=== PATIENT | female | born 1960 | race Caucasian/White ===

== ENCOUNTER → 2020-09-03 08:58 | Outpatient (BNVA) | payer OTHER, SELFPAY | PROVIDERS: PCP Nurse Practitioner Family; Visit Provider Family Medicine Adult Medicine ==

== ENCOUNTER → 2020-09-24 12:52 | Outpatient (BNVA) | payer OTHER, SELFPAY | PROVIDERS: PCP Nurse Practitioner Family; Visit Provider Family Medicine Adult Medicine ==

== ENCOUNTER → 2020-10-08 15:27 | Outpatient (BNVA) | payer OTHER, SELFPAY | PROVIDERS: PCP Nurse Practitioner Family; Visit Provider Family Medicine Adult Medicine ==

== ENCOUNTER 2020-11-10 11:43 | Outpatient (RCR) | payer OTHER, SELFPAY ==
--- NOTE | 2020-11-10 14:07 | MHC.PT.EP ---
[facility] [place] [facility] [place] [facility] [place] [facility] [address] Vince Green [address] [phone] F: [phone] F: [phone] F: [phone] F: [phone] Physical Therapy Plan of Care Date of Evaluation: Date of Surgery: NA in regards to R hip Diagnosis: PT initial eval and treat: Pain in R hip M25.551 signed by Da Campos NP date of referral 10/15/20 Assessment: Pt is a pleasant, 59 y/o female, referred to PT for treatment of severe R hip pain following insidious onset which began a few weeks ago. Pt reports ongoing history of L>R knee pain, has been using standard cane for some time. Pt attributes onset of sx to compensation of walking pattern due to pain in her L knee. Pt PMH significant for morbid obesity, DM, HTN, and derangement of both knees, chronic opoid use (currently in pain management, lymphadema with LE rashes B LE, and hx fall with fractured coccyx. Pt was recently prescribed prednisone by her PCP due to surge of increasing pain in R hip x 5 days total @50 mg; pt expresses concern for lack of tapering with this. Pt is currently lacking a formal exercise program and reports intolerance for sitting, sleeping, SL, and walking due to pain. Pt was given referral for an xray of her hip, has not yet completed. Pt also reports she is enrolled in pain management- to see Dr. Lynn later today. Pt recommended to be seen in therapy at a frequency of 1-2x/week however pt has a $40 copayment and this will likely impact frequency/duration of treatment. We discussed numerous options of things she could research/review including initiating more movement into her day such as goal of rising a few reps from firm back chair with arms in effort to increase her lower extremity strength. Pt exhibits weakness of core stabilizers, hip abd, and hip ext. She reports difficulty rising from a chair and has limited ambulation tolerance in current state. Therapist advised/educated re: benefit of trialing bariatric walker to increase gait stability, independence, and confidence with ambulation. Using a walker vs a standard cane would make her feel more at ease for her level of stability and promote her to walk/move more. Therapist to reach out to referring MD to address this. Therapist also discussed benefit in speaking/consulting with podiatry to obtain diabetic footwear which would offer greater support, safety, and stabilty for her back>hips>knees. She has reported a history of diabetic ulcer in the past. She denies any form of wounds at present and does report checking her feet/BP at home daily. Upon assessment today of BP level; her BP was 200/90mmHg (taken via wrist per pt request), reports has been trending low 200s/100s more recently, was given increase in BP med by PCP with goal of 140/90. She was emotionally upset at time when therapist was taking her BP, and she reports she will continue to monitor it at home. Pt reports she has not been in the care of podiatry for herself before. Pt reports past history of consulting with lymphadema specialist, has not gone in quite a few years, however she may benefit from reassessment to address edema in her LE which is impacting her mobility. We discussed potential benefit in obtaining lifeline/alert system she could wear to increase safety due to history of falls at home. We discussed trial of [employer] for gentle pool therapy, use of NUstepper due to aide ROM in her knees as well as LE strength. She was shown simple HEP she could do at home including: isometric quad sets, sit<>stand and stand<>sit, SL hip abd straight leg, clamshell, and SL hip extension. She was educated re: use of ice prn for relief in her knees/hips. We discussed different questions she had surrounding topics such as treatments including iontophoresis, cortisone injections, strengthening exercises, and ways therapy could aide in her mobility. She was noted to become tearful, expressing frustration and lack of ability to find treatment options in the past which have helped her. She reports taking excessive amounts of ibuprofen up to 1600mg/day in addition to her pain medication in effort to ease her sx and was advised to consult with her pain management MD about this. We reviewed fall recovery and she was shown ways tips to get up from the floor/out of the car which may ease her mobility. Phone call to be placed to Da Campos's office re: obtaining a prescription for Bariatric Front wheeled RW. Pt may also benefit for a referral to podiatry to obtain diabetic shoes. Frequency and Duration: The patient will be seen 1-2x/week Short Term Goals: 1. Strengthen hip abd to 3/5. 2. Complete symmetrical bridge. 3. Reduce pain by 25% in R hip. 4. Demonstrate self care strategies for management of pain. 5. Sit<>stand on first attempt with good symmetry. 6. Obtain bariatric RW for home to increase gait stability and increase independent safe mobility. Care Home Goals: 1. Reduce R hip pain by 50% during ADLs/IADLS. 2. Complete SLR into flexion with good eccentric control. 3. I HEP for hip/knee/core stab. 4. Resume ability to sleep in SL for short periods of time. 5. Report no evidence of knee instability during ambulation. Treatment Plan: Modalities to reduce pain, spasms and effusion. Manual therapy to restore motion and function. Therapeutic exercise to improve strength and flexibility. Neuromuscular re-education for posture and balance. Therapeutic activities to return to functional activities of daily living. Electronically signed by: Aniyah Jeffrey, PT, DPT Please sign and return to therapist. Thank you for your referral.
== END 2020-12-25 12:44 | disposition other institution (70) ==
LOC: HO.PTWFD 11:43
PROVIDERS: Visit Provider Nurse Practitioner Family
DX: M25.551 Pain in right hip (principal)
CPT/HCPCS: 97110; 97116; 97161; 97530; 97535

== ENCOUNTER → 2020-11-10 15:23 | Outpatient (BNVA) | payer OTHER, SELFPAY | PROVIDERS: PCP Nurse Practitioner Family; Visit Provider Family Medicine Adult Medicine | DX: M23.91 Unspecified internal derangement of right knee (principal); M23.92 Unspecified internal derangement of left knee; M24.859 Other specific joint derangements of unspecified hip, not elsewhere classified; I10 Essential (primary) hypertension ==

== ENCOUNTER → 2020-12-24 15:19 | Outpatient (BNVA) | payer OTHER, SELFPAY | PROVIDERS: PCP Nurse Practitioner Family; Visit Provider Family Medicine Adult Medicine | DX: M23.91 Unspecified internal derangement of right knee (principal); M23.92 Unspecified internal derangement of left knee; M24.859 Other specific joint derangements of unspecified hip, not elsewhere classified; I10 Essential (primary) hypertension ==

== ENCOUNTER → 2021-01-21 15:27 | Outpatient (BNVA) | payer OTHER, SELFPAY | PROVIDERS: PCP Nurse Practitioner Family; Visit Provider Family Medicine Adult Medicine ==

== ENCOUNTER → 2021-02-18 15:18 | Outpatient (BNVA) | payer OTHER, SELFPAY | PROVIDERS: PCP Nurse Practitioner Family; Visit Provider Family Medicine Adult Medicine ==

== ENCOUNTER → 2021-03-30 15:29 | Outpatient (BNVA) | payer OTHER, SELFPAY | PROVIDERS: PCP Nurse Practitioner Family; Visit Provider Family Medicine Adult Medicine ==

== ENCOUNTER → 2021-04-29 15:18 | Outpatient (BNVA) | payer OTHER, SELFPAY | PROVIDERS: Visit Provider Family Medicine Adult Medicine ==

== ENCOUNTER → 2021-05-25 15:22 | Outpatient (BNVA) | payer OTHER, SELFPAY | PROVIDERS: PCP Nurse Practitioner Family; Visit Provider Family Medicine Adult Medicine ==

== ENCOUNTER → 2021-07-01 08:57 | Outpatient (BNVA) | payer OTHER, SELFPAY | PROVIDERS: PCP Nurse Practitioner Family; Visit Provider Family Medicine Adult Medicine ==

== ENCOUNTER → 2021-07-28 15:17 | Outpatient (BNVA) | payer OTHER, SELFPAY | PROVIDERS: PCP Nurse Practitioner Family; Visit Provider Nurse Practitioner Family ==

== ENCOUNTER → 2021-08-27 15:18 | Outpatient (BNVA) | payer OTHER, SELFPAY | PROVIDERS: PCP Nurse Practitioner Family; Visit Provider Nurse Practitioner Family ==

== ENCOUNTER → 2021-09-28 15:00 | Outpatient (BNVA) | payer OTHER, SELFPAY | PROVIDERS: PCP Nurse Practitioner Family; Visit Provider Nurse Practitioner Family | DX: M25.551 Pain in right hip (principal); M17.0 Bilateral primary osteoarthritis of knee; F11.90 Opioid use, unspecified, uncomplicated; G89.29 Other chronic pain; Z79.899 Other long term (current) drug therapy | CPT/HCPCS: 99212 ==

== ENCOUNTER 2021-09-30 08:31 | Outpatient (RCR) | payer OTHER, SELFPAY | END 2022-04-14 11:08 | disposition home or self-care (01) | LOC: HO.WCC 08:31 | PROVIDERS: PCP Nurse Practitioner Family; Visit Provider Physician Assistant | DX: E11.622 Type 2 diabetes mellitus with other skin ulcer (principal); L97.812 Non-pressure chronic ulcer of other part of right lower leg with fat layer exposed; Q82.0 Hereditary lymphedema; Z79.4 Long term (current) use of insulin; Z79.891 Long term (current) use of opiate analgesic; Z79.899 Other long term (current) drug therapy | CPT/HCPCS: 11042; 29580; 29581; 97597; 99212 ==

== ENCOUNTER → 2021-10-06 14:49 | Outpatient (BNVA) | payer OTHER, SELFPAY | PROVIDERS: PCP Nurse Practitioner Family; Visit Provider Nurse Practitioner Family | DX: E66.01 Morbid (severe) obesity due to excess calories (principal); I50.9 Heart failure, unspecified; G47.30 Sleep apnea, unspecified; R06.83 Snoring; R40.0 Somnolence; I10 Essential (primary) hypertension; Z79.899 Other long term (current) drug therapy | CPT/HCPCS: 99202 ==

== ENCOUNTER → 2021-11-02 15:18 | Outpatient (BNVA) | payer OTHER, SELFPAY | PROVIDERS: PCP Nurse Practitioner Family; Visit Provider Nurse Practitioner Family | DX: Z13.89 Encounter for screening for other disorder (principal) ==

== ENCOUNTER 2021-11-23 14:05 | Outpatient (REF) | payer OTHER, SELFPAY ==
--- NOTE | ~2021-11-23 | CT_ITS ---
EXAMINATION: CT CHEST WITH CONTRAST CLINICAL INFORMATION: Localized enlarged lymph nodes COMPARISON: None TECHNIQUE: Multidetector volumetric CT imaging of the chest was obtained after the administration of 50 mL of Omnipaque 350 intravenous contrast without immediate adverse reactions. Axial MIP volume rendering provided. Sagittal and coronal reformatted images were obtained. This CT examination was performed using dose optimization techniques as appropriate, variously including the following: *Automated exposure control *Adjustment of mA and/or kV according to patient size (this includes techniques or standardized protocols for targeted exams where dose is matched to indication/reason for exam; i.e. extremities or head) *Use of iterative reconstruction technique DLP: 315 mGy-cm FINDINGS: LUNGS/PLEURA: Mild bibasilar atelectasis. No suspicious pulmonary nodules or masses noted. Central airways are patent. No pneumothorax. No large pleural effusion. MEDIASTINUM: Heart is borderline enlarged. No pericardial effusion. Coronary artery calcifications are noted. Aorta is nonaneurysmal and demonstrates atherosclerotic calcifications. No enlarged lymph nodes per size criteria. Subcentimeter paratracheal and precarinal, and periaortic lymph nodes are noted, not enlarged per size criteria. Visualized portions of the thyroid are unremarkable. Slight elevation the right hemidiaphragm AXILLA: Multiple mildly prominent bilateral axillary lymph nodes are noted for example in the right axilla measuring 1.6 x 1.2 cm. UPPER ABDOMEN: 2.0 cm splenule. Status post cholecystectomy. Slightly decreased hepatic attenuation suggesting hepatic steatosis. OSSEOUS STRUCTURES: Multilevel degenerative changes of the thoracolumbar spine with mild dextrocurvature of the mid thoracic spine. No large lytic or blastic lesions are noted. CT/CT chest w con IMPRESSION: 1. No acute process of the chest identified. 2. Multiple mildly prominent bilateral axillary lymph nodes are noted for example in the right axilla measuring 1.6 x 1.2 cm. 3. Elevation the right hemidiaphragm, nonspecific. 4. 2.0 cm splenule. 5. Status post cholecystectomy. 6. Slightly decreased hepatic attenuation suggesting hepatic steatosis.
[2021-11-23] MEDS: iohexoL 350 MG/ML 100 ML INFUS..BTL IV (15:30)
== END 2021-11-23 14:06 | disposition home or self-care (01) ==
LOC: HO.CT 14:05
PROVIDERS: Visit Provider Nurse Practitioner Family
DX: R59.0 Localized enlarged lymph nodes (principal)
CPT/HCPCS: 71260; Q9967

== ENCOUNTER → 2021-11-30 08:44 | Outpatient (BNVA) | payer OTHER, SELFPAY | PROVIDERS: PCP Nurse Practitioner Family; Referring Provider Nurse Practitioner Family; Visit Provider Surgery | DX: Z13.89 Encounter for screening for other disorder (principal) ==

== ENCOUNTER → 2021-12-01 07:59 | Outpatient (BNVA) | payer OTHER, SELFPAY | PROVIDERS: PCP Nurse Practitioner Family; Visit Provider Nurse Practitioner Family | DX: M25.551 Pain in right hip (principal); M17.0 Bilateral primary osteoarthritis of knee; F11.90 Opioid use, unspecified, uncomplicated ==

== ENCOUNTER 2021-12-15 08:32 | Outpatient (REF) | payer OTHER, SELFPAY ==
--- NOTE | ~2021-12-15 | US_ITS ---
EXAMINATION: US BIOPSY AXILLARY LYMPH NODE, RIGHT CLINICAL INFORMATION: On recent CT imaging 11/24/2021 there are prominent bilateral axillary lymph nodes with the right axillary lymph node measuring 1.6 x 1.2 cm. COMPARISON: CT chest 11/24/2021. TECHNIQUE: Following explaining ultrasound-guided right axillary lymph node biopsy procedure, benefits and risk, a written consent was obtained. Patient was placed supine on ultrasound stretcher and preliminary imaging through the right axilla was performed. The biopsy was canceled as the right axillary lymph node has benign characteristics. FINDINGS: On right axillary lymph node imaging, the lymph node has benign characteristics and measures 1.68 x 1.1 x 1.97 cm. Normal cortex and medulla is noted. The lymph node is approximately 3 cm deep. No additional lymph nodes seen. US/US biopsy lymph node IMPRESSION: Ultrasound-guided right axillary lymph node biopsy was canceled as the lymph node has typical normal architecture and appears benign. In the past patient had similar reactive lymph nodes in the mediastinum.
== END 2021-12-15 08:33 | disposition home or self-care (01) ==
LOC: HO.US 08:32
PROVIDERS: Visit Provider Surgery
DX: R59.0 Localized enlarged lymph nodes (principal)
CPT/HCPCS: 38505; 76942

== ENCOUNTER 2021-12-20 10:46 | Outpatient (REF) | payer OTHER, SELFPAY ==
--- NOTE | ~2021-12-20 | XR_ITS ---
EXAMINATION: CHEST WITH LEFT RIBS CLINICAL INFORMATION: Pleurodynia COMPARISON: None TECHNIQUE: Chest 2 views. Left ribs 3 views. FINDINGS: Chest: The lungs are well-expanded and clear. The heart size and pulmonary vascularity is normal. There is moderate spondylosis dorsal spine no lytic process seen. The soft tissues are normal. XR/XR ribs LT 2V IMPRESSION: Unremarkable chest x-ray and left RIBS.
--- NOTE | ~2021-12-20 | XR_ITS ---
EXAMINATION: CHEST WITH LEFT RIBS CLINICAL INFORMATION: Pleurodynia COMPARISON: None TECHNIQUE: Chest 2 views. Left ribs 3 views. FINDINGS: Chest: The lungs are well-expanded and clear. The heart size and pulmonary vascularity is normal. There is moderate spondylosis dorsal spine no lytic process seen. The soft tissues are normal. XR/XR chest 2V IMPRESSION: Unremarkable chest x-ray and left RIBS.
== END 2021-12-20 10:47 | disposition home or self-care (01) ==
LOC: HO.HMGCX 10:46
PROVIDERS: PCP Nurse Practitioner Family; Visit Provider Nurse Practitioner Family
DX: R07.81 Pleurodynia (principal); R05.9 Cough, unspecified
CPT/HCPCS: 71046; 71100

== ENCOUNTER → 2021-12-28 15:29 | Outpatient (BNVA) | payer OTHER, SELFPAY | PROVIDERS: PCP Nurse Practitioner Family; Visit Provider Nurse Practitioner Family | DX: Z51.81 Encounter for therapeutic drug level monitoring (principal); F11.20 Opioid dependence, uncomplicated | CPT/HCPCS: 99211 ==

== ENCOUNTER → 2022-01-09 20:31 | Outpatient (REF) | payer OTHER, SELFPAY | LOC: HO.SL 20:31 | PROVIDERS: PCP Nurse Practitioner Family; Visit Provider Nurse Practitioner Family | DX: R06.83 Snoring (principal); R40.0 Somnolence; E66.01 Morbid (severe) obesity due to excess calories; I11.0 Hypertensive heart disease with heart failure; I50.9 Heart failure, unspecified | CPT/HCPCS: 95810 ==

== ENCOUNTER → 2022-06-16 13:14 | Outpatient (BNVA) | payer OTHER, SELFPAY | PROVIDERS: PCP Nurse Practitioner Family; Visit Provider Dietitian, Registered | DX: E11.29 Type 2 diabetes mellitus with other diabetic kidney complication (principal); E66.01 Morbid (severe) obesity due to excess calories | CPT/HCPCS: 97802 ==

== ENCOUNTER → 2022-07-04 14:48 | Outpatient (BNVA) | payer OTHER, SELFPAY | PROVIDERS: PCP Nurse Practitioner Family; Visit Provider Nurse Practitioner Family | DX: M17.0 Bilateral primary osteoarthritis of knee (principal) ==

== ENCOUNTER → 2022-08-25 11:44 | Outpatient (BNVA) | payer OTHER, SELFPAY | PROVIDERS: PCP Nurse Practitioner Family; Visit Provider Nurse Practitioner Family | DX: Z13.89 Encounter for screening for other disorder (principal) ==

== ENCOUNTER 2023-02-23 15:57 | Outpatient (AMB) | payer OTHER, SELFPAY ==
--- NOTE | 2023-02-23 16:35 | A.OFFPC_ITS ---
Vital Signs 02/23/23 16:36 Height 5 ft 3 in BMI Reason not done Patient refused/unable BP 118/74 Blood Pressure Location Lt radial Position Sitting Pulse 82 Pulse Source Pulse Oximeter Pulse Oximetry (%) 96 Oxygen Delivery Method Room Air Intake Visit Reasons: 4 month follow up Allergies No Known Allergies Allergy (Verified 02/23/23 18:40) Medication List - Last Reconciled 02/23/23 by BEHZAD Flores-BEATA amoxicillin 2,000 mg (4 x 500 mg) PO ONCE 4 days aspirin (Adult Aspirin Regimen) 81 mg PO DAILY 90 days blood sugar diagnostic (Diurnal Verio test strips) Use to check blood sugar 4 times daily; FBS and before meals flash glucose scanning reader (IronPort SystemsStyle Raine 2 Ragland) TID testing flash glucose sensor (FreeStyle Raine 2 Sensor kit) tid testing furosemide 60 mg (3 x 20 mg) PO DAILY 30 days insulin glargine-yfgn (Semglee (insulin glargine-yfgn) Pen) 68 units (0.68 mL) subcut QPM insulin lispro (Humalog KwikPen (U-100) Insulin) 30 units (0.3 mL) subcut TID ketoconazole 2% 1 appl topical BID lisinopril 5 mg PO DAILY metoprolol tartrate 25 mg PO BID 90 days pen needle, diabetic (Easy Comfort Pen Hecker) As directed 3 times a day pen needle, diabetic (BD Ultra-Fine Mini Pen Needle) once a day pregabalin (Lyrica) 75 mg PO BID 30 days rosuvastatin 10 mg PO BEDTIME semaglutide (Ozempic) 0.25 mg (0.368 mL) subcut QWEEK Tobacco use date assessed: 02/23/23 HPI 4 month follow up HPI Details Follow-up for diabetes. Patient reports taking her long-acting insulin in the morning and usually takes closer to 64 units. She reports she was getting some lows at night but in the last few days this has ceased. Her last A1c was 7.4, microalbumin up to date. She does have neuropathy to her bilateral lower extremities. I will start her on Lyrica for this, gabapentin did not work in the past. I will start Ozempic as well for the patient. She is also requesting a referral to endo, which I will gladly place. Patient is still following with Cardiology, next appointment in April. Patient denies any further increased shortness of breath, chest pain, dizziness, headache. Patient is currently on a JUSTICE and a statin. [facility] Medical History (Updated 02/23/23 @ 17:21 by KADE Flores) Aortic valve stenosis Arthralgia Derangement of both knee joints Diabetic retinopathy Essential hypertension Essential hypertension Grade II diastolic dysfunction Justin's thyroiditis Leg wound, right Morbid obesity Other specific joint derangements of unspecified hip, not elsewhere classified Type 2 diabetes mellitus with other diabetic kidney complication Type 2 diabetes mellitus without complications Ventral hernia Surgical History H/O: hysterectomy History of cholecystectomy Hx of left knee surgery Previous section S/P cardiac cath Family History Mother Ovarian cancer Father Bladder cancer Social History Household Members Other:: 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 Richard Chatterjee, Clarice Lyons, Rohit Ferrell and colleagues, with an educational ren from [employer]. Physical exam (Primary Care) Vital Signs: Last Vital Signs Pulse 82 02/23/23 16:36 BP 118/74 02/23/23 16:36 Pulse Ox 96 02/23/23 16:36 Oxygen Delivery Method Room Air 02/23/23 16:36 Tobacco/Smoking Status: Tobacco use Status Tobacco use date assessed 02/23/23 02/23/23 16:39 Patient Tobacco Use Status Never used Tobacco 02/23/23 16:39 e-Cigarette/Vaping Use Never Used 02/23/23 16:39 Thrive Assessment: Date of Thrive Assessment Date Thrive assessed 10/27/22 02/23/23 16:39 Const Other: uses a cane General: cooperative, comfortable and no acute distress Nutritional Appearance: obese morbidly obese Resp Effort & Inspection: normal respiratory effort Auscultation: clear to auscultation bilaterally Cardio Rate: regular rate Rhythm: regular rhythm Heart sounds: S1 normal heart sound present, S2 normal heart sound present and Murmur heart sound present systolic Neuro Other: Limited sensation noted to bilat plantar aspect of feet, especially to toes. Otherwise, very minimal sensation felt with monofilament Psych Appearance: grossly normal Mental Status: mental status grossly normal Speech and movement: Normal speech and movement present Affect: normal affect Attitude: cooperative Thought process: Normal thought process present Thought content: Normal thought content present Insight: Good insight present (Psych) Judgement: Good judgement present (Psych) Assessment and Plan Assessment & Plan (1) Type 2 diabetes mellitus with other diabetic kidney complication: Code(s): E11.29 - Type 2 diabetes mellitus with other diabetic kidney complication (2) Diabetes: Code(s): E11.9 - Type 2 diabetes mellitus without complications Orders: Referrals Endocrinology Referral E11.29 - Type 2 diabetes mellitus with other diabetic kidney complication Nephrology Referral E11.9 - Type 2 diabetes mellitus without complications Medications: New amoxicillin take 4 tabs 1 hr before dental procedure 2,000 mg (4 x 500 mg) PO ONCE 4 caps 2RF 4 days pregabalin (Lyrica) 75 mg PO BID 60 caps 1RF 30 days semaglutide (Ozempic) for 4 weeks 0.25 mg (0.368 mL) subcut QWEEK 3 mL 1RF Refilled insulin lispro (Humalog KwikPen (U-100) Insulin) max is 16 units sliding scale 3 times a day with meals 30 units (0.3 mL) subcut TID 15 mL 1RF Coding Level of Care Code Est Pt Level 3 (68743) Diagnoses Type 2 diabetes mellitus with other diabetic kidney complication E11.29 Diabetes E11.9
[2023-02-23 16:36] VITALS: BP 118/74; PULSE 82; O2SAT 96
== END 2023-02-23 17:58 | disposition home or self-care (01) ==
PROVIDERS: PCP Nurse Practitioner Family; Visit Provider Nurse Practitioner Family
DX: E11.29 Type 2 diabetes mellitus with other diabetic kidney complication (principal)
CPT/HCPCS: 99213

== ENCOUNTER 2023-06-15 07:32 | Outpatient (AMB) | payer OTHER, SELFPAY ==
--- NOTE | 2023-06-15 07:26 | MHC.PC.OV ---
Intake Visit Reasons: 3Month diabetes follow up(a1c done in labs) Allergies No Known Allergies Allergy (Verified 02/23/23 18:40) Tobacco use date assessed: 02/23/23 HPI 3Month diabetes follow up(a1c done in labs) HPI Details Pt is following up with endo for her diabetes. A1C is well-controlled at 6.6. Pt is also seeing nephrology and cardiology. BNP is 92. Denies chest pain, shortness of breath, and dizziness. Pt reports that her anxiety and depression is doing well. Denies any SI and HI. [facility] Medical History (Updated 06/15/23 @ 07:46 by BEHZAD FloresBEATA) Grade II diastolic dysfunction Diabetic retinopathy Leg wound, right Arthralgia Justin's thyroiditis Ventral hernia Aortic valve stenosis Essential hypertension Essential hypertension Type 2 diabetes mellitus without complications Morbid obesity Other specific joint derangements of unspecified hip, not elsewhere classified Derangement of both knee joints Type 2 diabetes mellitus with other diabetic kidney complication Surgical History S/P cardiac cath History of cholecystectomy Previous section Hx of left knee surgery H/O: hysterectomy Family History Mother Ovarian cancer Father Bladder cancer Social History Household 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 Richard Chatterjee, Clarice Lyons, Rohit Ferrell and colleagues, with an educational ren from [employer] Review of Systems Const Reports as per HPI Physical exam (Primary Care) Tobacco/Smoking Status: Tobacco use Status Tobacco use date assessed 02/23/23 06/15/23 07:29 Patient Tobacco Use Status Never used Tobacco 06/15/23 07:29 e-Cigarette/Vaping Use Never Used 06/15/23 07:29 Thrive Assessment: Date of Thrive Assessment Date Thrive assessed 10/27/22 06/15/23 07:29 Const General: cooperative Orientation/consciousness: patient oriented x3 Neuro General: patient oriented x3 Psych Appearance: grossly normal Mental Status: mental status grossly normal Speech and movement: Clear speech present Affect: normal affect Attitude: cooperative Thought process: Normal thought process present Thought content: Normal thought content present Insight: Good insight present (Psych) Judgement: Good judgement present (Psych) Assessment and Plan Assessment & Plan (1) CHF (congestive heart failure): Code(s): I50.9 - Heart failure, unspecified (2) Type 2 diabetes mellitus with other diabetic kidney complication: Code(s): E11.29 - Type 2 diabetes mellitus with other diabetic kidney complication (3) Depression with anxiety: Code(s): F41.8 - Other specified anxiety disorders Plan The patient agreed to the use of a medical instructor for this encounter. Scribed for KADE Dickey by Belinda Leary medical instructor, on 06/15/2023 at 07:25 EST. Coding Level of Care Code Tele Est Pt Level 3 (72884) Diagnoses CHF (congestive heart failure) I50.9 Type 2 diabetes mellitus with other diabetic kidney complication E11.29 Depression with anxiety F41.8
== END 2023-06-15 08:17 | disposition home or self-care (01) ==
LOC: HO.HMGC 07:32
PROVIDERS: PCP Nurse Practitioner Family; Visit Provider Nurse Practitioner Family
DX: I50.9 Heart failure, unspecified (principal); E11.29 Type 2 diabetes mellitus with other diabetic kidney complication; F41.8 Other specified anxiety disorders
CPT/HCPCS: 99213

== ENCOUNTER 2023-09-18 07:11 | Outpatient (AMB) | payer BC, SELFPAY ==
--- NOTE | 2023-09-18 07:21 | A.OFFPC_ITS ---
Intake Visit Reasons: Discuss personal [phone] Allergies No Known Allergies Allergy (Verified 09/18/23 08:17) Medication List - Last Reconciled 09/18/23 by KADE Flores amoxicillin 2,000 mg (4 x 500 mg) PO ONCE 4 days aspirin (Adult Aspirin Regimen) 81 mg PO DAILY 90 days blood sugar diagnostic (DwellAwareTouch Verio test strips) Use to check blood sugar 4 times daily; FBS and before meals flash glucose scanning reader ([employer]Style Raine 2 [place]) TID testing flash glucose sensor (FreeStyle Raine 2 Sensor kit) tid testing furosemide 60 mg (3 x 20 mg) PO DAILY 90 days insulin glargine-yfgn (Semglee (insulin glargine-yfgn) Pen) 68 units (0.68 mL) subcut QPM insulin lispro (Humalog KwikPen (U-100) Insulin) 16 units max, sliding scale 3 times a day with meals subcutaneously ketoconazole 2% 1 appl topical BID lisinopril 5 mg PO DAILY metoprolol tartrate 25 mg PO BID 90 days pen needle, diabetic (Easy Comfort Pen Protem) As directed 3 times a day pen needle, diabetic (BD Ultra-Fine Mini Pen Needle) once a day pregabalin (Lyrica) 75 mg PO BID 90 days rosuvastatin 10 mg PO BEDTIME semaglutide 1 mg (0.75 mL) subcut QWEEK 30 days Tobacco use date assessed: 02/23/23 HPI Discuss personal [phone] HPI Details Pt c/o leg cramping. She reports that these are mostly at night. She is on a fluid restriction. Recommended OTC magnesium oxide and/or vitamin b12 complex. Encouraged pt to include electrolytes with fluids (sugar free gatorade for ex). Pt will be seeing her new hearing aid repairer in 2 weeks. Pt is seeing endo for her diabetes and is doing well. She is losing weight. Denies chest pain, shortness of breath, and dizziness. [facility] Medical History Grade II diastolic dysfunction Diabetic retinopathy Leg wound, right Arthralgia Justin's thyroiditis Ventral hernia Aortic valve stenosis Essential hypertension Essential hypertension Type 2 diabetes mellitus without complications Morbid obesity Other specific joint derangements of unspecified hip, not elsewhere classified Derangement of both knee joints Type 2 diabetes mellitus with other diabetic kidney complication Surgical History S/P cardiac cath History of cholecystectomy Previous section Hx of left knee surgery H/O: hysterectomy Family History Mother Ovarian cancer Father Bladder cancer Social History Household 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 Richard Chatterjee, Clarice Lyons, Rohit Ferrell and colleagues, with an educational ren from [employer]. Review of Systems Const Reports as per HPI Physical exam (Primary Care) Tobacco/Smoking Status: Tobacco use Status Tobacco use date assessed 02/23/23 09/18/23 07:23 Patient Tobacco Use Status Never used Tobacco 09/18/23 07:23 e-Cigarette/Vaping Use Never Used 09/18/23 07:23 Thrive Assessment: Date of Thrive Assessment Date Thrive assessed 10/27/22 09/18/23 07:23 Const General: cooperative Orientation/consciousness: patient oriented x3 Neuro General: patient oriented x3 Psych Appearance: grossly normal Mental Status: mental status grossly normal Speech and movement: Clear speech present Affect: normal affect Attitude: cooperative Thought process: Normal thought process present Thought content: Normal thought content present Insight: Good insight present (Psych) Judgement: Good judgement present (Psych) Telehealth Telehealth Location of provider rendering services: practice address Location of patient: address on file Patient Identification confirmed using: Name, : Yes Telehealth method: video Patient verbally consented to treatment: Yes Patient verbally consented to billing insurance company: Yes Patient informed of any privacy concerns related to visit: Yes Minutes spent on Phone/Video with Pt.: 15 Assessment and Plan Assessment & Plan (1) Morbid obesity: Code(s): E66.01 - Morbid (severe) obesity due to excess calories (2) Diabetes: Code(s): E11.9 - Type 2 diabetes mellitus without complications Plan: controlled, seeing endo (3) CHF (congestive heart failure): Code(s): I50.9 - Heart failure, unspecified Plan: seeing cardio, no acute SOB or increase in edema. (4) Leg cramps: Code(s): R25.2 - Cramp and spasm Plan: try mag oxide 400mg at night, may add vit b complex Plan The patient agreed to the use of a medical chief technician for this encounter. Scribed for BEHZAD Dickey-BEATA by Belinda Leary medical chief technician, on 09/18/2023 at 07:20 EST. Coding Level of Care Code Tele Est Pt Level 3 (20304) Diagnoses Morbid obesity E66.01 Diabetes E11.9 CHF (congestive heart failure) I50.9 Leg cramps R25.2
== END 2023-09-18 07:47 | disposition home or self-care (01) ==
LOC: HO.HMGC 07:11
PROVIDERS: PCP Nurse Practitioner Family; Visit Provider Nurse Practitioner Family
DX: E11.9 Type 2 diabetes mellitus without complications (principal); E66.01 Morbid (severe) obesity due to excess calories; I50.9 Heart failure, unspecified; R25.2 Cramp and spasm
CPT/HCPCS: 99213

== ENCOUNTER 2024-02-05 15:24 | Outpatient (AMB) | payer BC, SELFPAY ==
--- NOTE | 2024-02-05 15:29 | MHC.PC.OV ---
Vital Signs 02/05/24 15:30 Height 5 ft 3 in BMI Reason not done Patient refused/unable BP 120/72 Blood Pressure Location Lt radial Position Sitting Pulse 94 Pulse Source Pulse Oximeter Pulse Oximetry (%) 95 Oxygen Delivery Method Room Air Intake Visit Reasons: 4M F/U DM Intake Note: Pt is here today for 4 month follow up Allergies No Known Allergies Allergy (Verified 02/05/24 15:30) Tobacco use date assessed: 02/05/24 Dental Screening Dental Screen Date: 02/05/24 Did you have a dental visit in the last 12 months?: Yes Did you have a dental problem in the last 6 months where you did not have access to dental care?: No Was dental information given to patient?: Patient has dentist HPI 4M F/U DM HPI Details Pt is a diabetic, sees endo. Pt c/o ongoing leg cramps. She reports that these occur at night in her calves and feet. Pt has tried magnesium and vitamin B complex. She reports that these help somewhat. ? dehydration. Recommended increased fluid intake, though she is on a fluid restriction. Pt will talk to her credit and collections analyst about this. Denies fever, chills, dizziness, PND. NOTE: sending tramadol for chronic pain, see if it helps. She knows not to share this medication, take only as prescribed, and cannot drive or operate machinery. [facility] Medical History Grade II diastolic dysfunction Diabetic retinopathy Leg wound, right Arthralgia Justin's thyroiditis Ventral hernia Aortic valve stenosis Essential hypertension Essential hypertension Type 2 diabetes mellitus without complications Morbid obesity Other specific joint derangements of unspecified hip, not elsewhere classified Derangement of both knee joints Type 2 diabetes mellitus with other diabetic kidney complication Surgical History S/P cardiac cath History of cholecystectomy Previous section Hx of left knee surgery H/O: hysterectomy Family History Mother Ovarian cancer Father Bladder cancer Social History Household Members Other:: 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 1. Little interest or pleasure in doing things: not at all 2. Feeling down, depressed, or hopeless: not at all 3. Trouble falling or staying asleep, or sleeping too much: not at all 4. Feeling tired or having little energy: not at all 5. Poor appetite or overeating: not at all 6. Feeling bad about yourself - or that you are a failure or have let yourself or your family down: not at all 7. Trouble concentrating on things, such as reading the newspaper or watching television: not at all 8. Moving or speaking so slowly that other people could have noticed. Or the opposite - being so fidgety or restless that you have been moving around a lot more than usual: not at all 9. Thoughts that you would be better off or of hurting yourself in some way: not at all Total score: 0 Depression Screening Interpretation: Negative Depression Screening Done: Yes 01583 - PHQ-9 Billing: Yes Source: Developed by Drs. Richard Chatterjee, Clarice Lyons, Rohit Ferrell and colleagues, with an educational ren from [employer]. Thrive Questionnaire Date Thrive assessed: 02/05/24 I am a: Patient What is your living situation today?: I have a steady place to live Within the past 12 months, did the food you bought not last and you didn't have the money to get more?: Never true Within the past 12 months, did you worry whether your food would run out before you got money to buy more?: Never true Do you have trouble paying for medicines?: No Do you have trouble getting transportation to medical appointments?: No Do you have trouble paying your heating and electricity bill?: No Do you have trouble taking care of your child, family member or friend?: No Do you have trouble with day-to-day activities such as bathing, preparing meals, shopping, managing finances, etc.?: No Are you currently unemployed and looking for a job?: No Are you interested in more education?: No Please select the resources that you would like help with: Housing/Fdc Currently or been in a relationship where the following occur: No concerns reported THRIVE Score: 0 AUDIT C Alcohol Use Questionnaire (AUDIT-C) 1. How often do you have a drink containing alcohol?: Monthly or less 2. How many drinks containing alcohol do you have on a typical day when you are drinking?: 1 or 2 3. How often do you have six or more drinks on one occasion?: Never Total Score: 1 Score Reviewed/Action Taken: Yes JILLIAN-7 AMB Questionnaire JILLIAN-7 Date JILLIAN - 7 assessed: 02/05/24 Feeling nervous, anxious, or on edge: 0 = Not at all Not being able to stop or control worryin = Not at all Worrying too much about different things: 0 = Not at all Trouble relaxin = Not at all Being so restless that it is hard to sit still: 0 = Not at all Becoming easily annoyed or irritable: 0 = Not at all Feeling afraid as if something awful might happen: 0 = Not at all Total JILLIAN-7 score (0-4 normal; 5-9 mild; 10-14 moderate; 15-21 severe): 0 Source: Developed by Drs. Richard Chatterjee, Clarice Lyons, Rohit Ferrell and colleagues, with an educational ren from [employer]. JILLIAN-7 Assessment Billing JILLIAN-7 Assessment Tool: JILLIAN-7 Assessment 84229 Review of Systems Const Reports as per HPI Physical exam (Primary Care) Vital Signs: Last Vital Signs Pulse 94 02/05/24 15:30 BP 120/72 02/05/24 15:30 Pulse Ox 95 02/05/24 15:30 Oxygen Delivery Method Room Air 02/05/24 15:30 Tobacco/Smoking Status: Tobacco use Status Tobacco use date assessed 02/05/24 02/05/24 15:31 Patient Tobacco Use Status Never used Tobacco 02/05/24 15:31 e-Cigarette/Vaping Use Never Used 02/05/24 15:31 PHQ-9: PHQ-9 Score PHQ-9: Total score 0 02/05/24 15:42 Depression Screening Interpretation: Negative Thrive Assessment: Date of Thrive Assessment Date Thrive assessed 02/05/24 02/05/24 15:31 Currently or been in a relationship where the following occur: No concerns reported Const Other: uses a cane General: cooperative Nutritional Appearance: obese Orientation/consciousness: patient oriented x3 Resp Effort & Inspection: normal respiratory effort Auscultation: clear to auscultation bilaterally Cardio Rate: regular rate Rhythm: regular rhythm Heart sounds: S1 normal heart sound present and S2 normal heart sound present Neuro General: patient oriented x3 Extrem Right lower extremity: edema (BLE) Left lower extremity: edema (BLE) Psych Appearance: grossly normal Mental Status: mental status grossly normal Speech and movement: Normal speech and movement present Affect: normal affect Attitude: cooperative Thought process: Normal thought process present Thought content: Normal thought content present Insight: Good insight present (Psych) Judgement: Good judgement present (Psych) Assessment and Plan Assessment & Plan (1) Leg cramps: Code(s): R25.2 - Cramp and spasm Plan: cont mag oxide, Vit B complex, and try sugar free gatorade (2) CHF (congestive heart failure): Code(s): I50.9 - Heart failure, unspecified Plan: follows up with cardiology on a regular basis, no active signs of CHF today (3) Chronic pain: Code(s): G89.29 - Other chronic pain Plan: tramadol sent. Plan The patient agreed to the use of a medical lab specialist for this encounter. Scribed for KADE Dickey by Belinda Leary medical lab specialist, on 02/05/2024 at 16:05 EST. Coding Level of Care Code Est Pt Level 4 (62326) Complex EM visit Add On G2211 Diagnoses Leg cramps R25.2 CHF (congestive heart failure) I50.9 Chronic pain G89.29 Additional Codes JILLIAN-7 Assessment Billing - JILLIAN-7 Assessment Tool: JILLIAN-7 Assessment [id number] ([id number])
[2024-02-05 15:30] VITALS: BP 120/72; PULSE 94; O2SAT 95
== END 2024-02-05 17:01 | disposition home or self-care (01) ==
PROVIDERS: PCP Nurse Practitioner Family; Visit Provider Nurse Practitioner Family
DX: R25.2 Cramp and spasm (principal); I50.9 Heart failure, unspecified; G89.29 Other chronic pain
CPT/HCPCS: 99214

== ENCOUNTER 2024-06-03 08:21 | Outpatient (AMB) | payer MEDICARE, SELFPAY ==
--- NOTE | 2024-06-03 07:10 | A.OFFPC_ITS ---
Intake Visit Reasons: 4M F/U Allergies No Known Allergies Allergy (Verified 02/05/24 15:30) Tobacco use date assessed: 02/05/24 Dental Screening Dental Screen Date: 02/05/24 HPI 4M F/U HPI Details Pt is a diabetic, sees endo. Lower extrem and upper extrem cramping, magnesium helped a little bit . Her mag levels jumped up, so she stopped the mag. Will have her take daily for a week then, go to every other day. Will have pt increase water and caloric intake. Denies fever, chills, and dizziness. She will be following up with cardiology as she has been. [facility] Medical History Grade II diastolic dysfunction Diabetic retinopathy Leg wound, right Arthralgia Justin's thyroiditis Ventral hernia Aortic valve stenosis Essential hypertension Essential hypertension Type 2 diabetes mellitus without complications Morbid obesity Other specific joint derangements of unspecified hip, not elsewhere classified Derangement of both knee joints Type 2 diabetes mellitus with other diabetic kidney complication Surgical History S/P cardiac cath History of cholecystectomy Previous section Hx of left knee surgery H/O: hysterectomy Family History Mother Ovarian cancer Father Bladder cancer Social History 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 Richard Chatterjee, Clarice Lyons, Rohit Ferrell and colleagues, with an educational ren from [employer]. Review of Systems Const Reports as per HPI Physical exam (Primary Care) Tobacco/Smoking Status: Tobacco use Status Tobacco use date assessed 02/05/24 06/03/24 07:12 Patient Tobacco Use Status Never used Tobacco 06/03/24 07:12 e-Cigarette/Vaping Use Never Used 06/03/24 07:12 Thrive Assessment: Date of Thrive Assessment Date Thrive assessed 02/05/24 06/03/24 07:12 Const General: cooperative Orientation/consciousness: patient oriented x3 Neuro General: patient oriented x3 Psych Appearance: grossly normal Mental Status: mental status grossly normal Speech and movement: Clear speech present Affect: normal affect Attitude: cooperative Thought process: Normal thought process present Thought content: Normal thought content present Insight: Good insight present (Psych) Judgement: Good judgement present (Psych) Telehealth Telehealth Telehealth Platform: [employer] Location of provider rendering services: practice address Location of patient: address on file Patient Identification confirmed using: Name, : Yes Telehealth method: video Patient verbally consented to treatment: Yes Patient verbally consented to billing insurance company: Yes Patient informed of any privacy concerns related to visit: Yes Minutes spent on Phone/Video with Pt.: 15 Coding Level of Care Code Tele Est Pt Level 3 (63764) Diagnoses Leg cramps R25.2 (HFpEF) heart failure with preserved ejection fraction I50.30 Assessment & Plan Assessment & Plan (1) Leg cramps: Code(s): R25.2 - Cramp and spasm Category: Medical Plan: mag daily, then every other day, repeat labs (2) (HFpEF) heart failure with preserved ejection fraction: Code(s): I50.30 - Unspecified diastolic (congestive) heart failure Category: Medical Plan: seeing cardio on a regular basis, denies any changes (increased SOB or edema) Plan The patient agreed to the use of a medical technician for this encounter. Scribed for KADE Dickey by Belinda Leary medical technician, on 06/03/2024 at 07:10 EST. Orders: Orders Magnesium Today R25.2 - Cramp and spasm Vitamin B12 and Folate Today R25.2 - Cramp and spasm Vitamin B6 Today R25.2 - Cramp and spasm Complete Blood Count Auto Diff Today R25.2 - Cramp and spasm Comprehensive Met. Panel Today R25.2 - Cramp and spasm
--- OUTSIDE RECORDS SUMMARY | 2024-06-07 12:58 | XMS_ITS | Continuity of Care Document ---
Author Organization [facility] Address [address] [place] [address]- Care Team Providers Care Display Carver Name Role Phone Andres BARGER, Da Esquivel Primary Care Physician [place] [facility] [place]23 [place] 07/[place]/23 [facility] [address] [place] [phone]- Allergies, Adverse Reactions, Alerts No Known Allergies Immunizations Given and Recorded Vaccine Date Status Refusal Reason SARS-CoV-2 (COVID-19) mRNA-1273 vaccine 07/29/21 R ecorded SARS-CoV-2 (COVID-19) mRNA-1273 vaccine 12/01/20 R ecorded SARS-CoV-2 (COVID-19) mRNA-1273 vaccine 11/03/20 R ecorded Medications Alpha Lipoic Acid 200 mg oral capsule 1 capsule = 200 mg, By Mouth, 3 times a day, # 30 capsule, 0 Refills, Maintenance, 09/14/21 20:42:00 EST, Capsule, Partial fill upon patient request if the prescription is for a schedule II opioid drug. Start Date: 09/14/21 Status: Ordered aspirin 81 mg oral tablet, chewable 0 Refill(s), CHEW 1 TABLET BY MOUTH EVERY DAY, Refills 0, 01/25/23 20:00:00 EDT, Partial fill upon patient request if the prescription is for a schedule II opioid drug. Start Date: 01/25/23 Status: Ordered Basaglar KwikPen 100 units/mL subcutaneous solution = 95 units, Subcutaneous Injection, Daily in AM, # 10 mL, 0 Refills, Maintenance, 09/14/21 20:39:00EST, Solution, Partial fill upon patient request if the prescription is for a schedule II opioid drug. Start Date: 09/14/21 Status: Ordered carvedilol 12.5 mg oral tablet 12.5 mg, 1, tablet, By Mouth, 2 times a day, # 60 tablet, Refills 0, Maintenance, 01/21/22 6:30:00 EDT, Partial fill upon patient request if the prescription is for a schedule II opioid drug. Start Date: 01/21/22 Status: Ordered dexcome g7 sensors dexcome g7 sensors, See Instructions, # 3 each, Refills 5, Tot. Refills 5, Maintenance, e11.9 use to continuously monitor glucose level change every 10 days, 07/20/23 14:08:00 EST, Supply, 160, cm, 05/01/23 14:43:00 EDT, Height, 148, kg, 01/21/22 6:... Start Date: 07/20/23 Status: Ordered furosemide 20 mg oral tablet 270 each, 0 Refill(s), TAKE 2 TABS DAILY IN THE MORNING AND 1 TAB DAILY AT NIGHT, Refills 0, 05/01/23 16:25:00 EDT, Partial fill upon patient request if the prescription is for a schedule II opioid drug. Start Date: 05/01/23 Status: Ordered furosemide 40 mg oral tablet 90 each, 0 Refill(s), TAKE 1 TABLET BY MOUTH EVERY DAY FOR 90 DAYS, Refills 0, 05/16/23 12:49:00 EDT, Partial fill upon patient request if the prescription is for a schedule II opioid drug. Start Date: 05/16/23 Status: Ordered ibuprofen 800 mg oral tablet See Instructions, 1-2 tablet By Mouth daily, Refills 0, Maintenance, 09/14/21 20:42:00 EST, Instructions Replace Required Details, Partial fill upon patient request if the prescription is for a schedule II opioid drug. Start Date: 09/14/21 Status: Ordered insulin glargine 100 units/mL subcutaneous solution 50 Unknown, Subcutaneous, 0 Refill(s), Inject 65 Units under the skin every morning, 0 Refills, 05/01/23 16:25:00 EDT, Partial fill upon patient request if the prescription is for a schedule II opioid drug. Start Date: 05/01/23 Status: Ordered ketoconazole 2% topical shampoo Topical, 0 Refill(s), Apply topically 2 (two) times a week Apply to damp skin, lather, leave on 5 minutes, and rinse, 0 Refills, 05/16/23 12:49:00 EDT, Partial fill upon patient request if the prescription is for a schedule II opioid drug. Start Date: 05/16/23 Status: Ordered Lasix 40 mg oral tablet 40 mg, 1, tablet, By Mouth, Daily, # 30 tablet, Refills 0, Tot. Refills 0, Maintenance, 09/17/21 13:32:00 EST, Route to Pharmacy Electronically, [facility]/pharmacy #[id number], Partial fill upon patient request if the prescription is for a schedule II opioid drug... Start Date: 09/17/21 Status: Ordered lisinopril 40 mg oral tablet 1 tablet = 40 mg, By Mouth, Daily, # 30 tablet, 0 Refills, Maintenance, 09/14/21 20:13:00 EST, Tablet, Partial fill upon patient request if the prescription is for a schedule II opioid drug. Start Date: 09/14/21 Status: Ordered lisinopril 5 mg oral tablet 90 each, 0 Refill(s), TAKE 1 TABLET BY MOUTH EVERY DAY, Refills 0, 05/01/23 16:25:00 EDT, Partial fill upon patient request if the prescription is for a schedule II opioid drug. Start Date: 05/01/23 Status: Ordered metoprolol 25 mg oral tablet 25 Unknown, Oral, 0 Refill(s), Take 25 mg by mouth, Refills 0, 02/06/23 20:00:00 EDT, Partial fill upon patient request if the prescription is for a schedule II opioid drug. Start Date: 02/06/23 Status: Ordered metoprolol succinate 25 mg oral capsule, extended release 3 capsule = 75 mg, By Mouth, Daily, # 90 capsule, 2 Refills, Maintenance, 09/17/21 13:31:00 EST, ERCapsule, [facility]/pharmacy #[id number], Partial fill upon patient request if the prescription is for a schedule II opioid drug., 160, cm, 09/15/21 13:21:00 EST, H... Start Date: 09/17/21 Stop Date: 12/16/21 Status: Ordered NovoLOG PenFill 100 units/mL injectable solution = 5 units, Subcutaneous Infusion, 3 times a day before meals, e11.9 insurance prefers novolog, # 10mL, 5 Refills, Maintenance, 07/20/23 14:02:00 EST, [facility] #[id number], Partial fill upon patient request if the prescription is for a schedul... Start Date: 07/20/23 Status: Ordered NovoLOG PenFill 100 units/mL injectable solution = 5 units, Subcutaneous Infusion, 3 times a day before meals, e11.9 insurance prefers novolog, # 15mL, 3 Refills, Maintenance, 07/20/23 14:05:00 EST, [facility] #[id number], Partial fill upon patient request if the prescription is for a schedul... Start Date: 07/20/23 Status: Ordered oxyCODONE 15 mg oral tablet 1 tablet = 15 mg, By Mouth, Every 6 hours, PRN as needed for pain, 0 Refills, Maintenance, 09/15/2219:12:00 EST, Tablet, Partial fill upon patient request if the prescription is for a schedule II opioid drug. Start Date: 09/14/21 Status: Ordered Ozempic (1 mg dose) 4 mg/3 mL subcutaneous solution See Instructions, 2 - 1 mg Subcutaneous Injection Every week Dx: E11.9, # 8 each, 5 Refills, Maintenance, 05/30/23 12:46:00 EST, Solution, [id number], 160, cm, 05/01/23 14:43:00 EDT,Height, 148, kg, 01/21/22 6:51:00 EDT, Dry Weight Start Date: 05/30/23 Status: Ordered pregabalin 75 mg oral capsule 180 each, 0 Refill(s), TAKE 1 CAPSULE BY MOUTH TWICE A DAY, 0 Refills, 05/01/23 16:25:00 EDT, Partial fill upon patient request if the prescription is for a schedule II opioid drug. Start Date: 05/01/23 Status: Ordered rosuvastatin 10 mg oral tablet 90 tablet, 0 Refill(s), 0 Refills, 05/01/23 16:25:00 EDT, Partial fill upon patient request if the prescription is for a schedule II opioid drug. Start Date: 05/01/23 Status: Ordered Vitamin D2 2000 intl units oral capsule 1 capsule = 50 mcg, By Mouth, Daily, with food, # 60 capsule, 0 Refills, Maintenance, 09/14/21 20:13:00 EST, Capsule, Partial fill upon patient request if the prescription is for a schedule II opioiddrug. Start Date: 09/14/21 Status: Ordered Problem List Condition Confirmation Course Effective Dates Status H ealth Status Informant Cellulitis Confirmed Active Cholecystectomy Confirmed Active Chronic ulcer of leg Confirmed Active DUB - Dysfunctional uterine bleeding Confirmed Active Hypertension Confirmed Active IDDM - Insulin-dependent diabetes mellitus Confirmed Active Morbid obesity Confirmed Active Panniculectomy Confirmed Active Severe obesity Confirmed Active DENIA BSO - Total abdominal hysterectomy and bilateral salpingo-oophorectomy Confirmed Active Patient Care team information Care Team Personnel Name: Andres BARGER , Da Esquivel Position: Reference Physician Member Role: PCP Address: Address: [address] [place] [address]- Name: Claribel Arrieta RN Position: Ayana OB RN Member Role: Primary Care Nurse Name: Radha Hernandez MD Position: Ayana Renal MD Member Role: Lifetime Consulting Physician Address: Address: [address] [place] [address] [place] [address]- Care Team Related Persons Name: LEO MORROW Address: home [address] [place] [address]
--- OUTSIDE RECORDS SUMMARY | 2024-06-07 12:58 | XMS_ITS | Continuity of Care Document ---
Author Organization [facility] Address [address] [place] [address]- Care Team Providers Care Entry Driver Operator Name Role Phone Andres BARGER, Da Esquivel Primary Care Physician [phone] Encounter [facility] Date(s): 06/08/22 - 09/09/[address] [address] Encounter Diagnosis Nonrheumatic aortic valve disorder, unspecified(Final) - Discharge Disposition: A-D/C Home Attending Physician: Bert Trujillo MD Admitting Physician: Bert Trujillo MD Referring Physician: Bert Trujillo MD Allergies, Adverse Reactions, Alerts No Known Allergies [...] opioid drug. Start Date: 09/14/21 Status: Ordered Basaglar KwikPen 100 units/mL subcutaneous [...] opioid drug. Start Date: 01/21/22 Status: Ordered Humalog 100 u/ml subcutaneous injection = 5 units, Subcutaneous Injection, 3 times a day before meals, # 10 mL, 0 Refills, Maintenance, 09/14/21 20:39:00 EST, Solution, Partial fill upon patient request if the prescription is for a schedule II opioid drug. Start Date: 09/14/21 Status: Ordered ibuprofen 800 mg oral tablet See Instructions, 1-2 tablet By Mouth daily, Refills 0, Maintenance, 09/14/21 20:42:00 EST, Instructions Replace Required Details, Partial fill upon patient request if the prescription is for a schedule II opioid drug. Start Date: 09/14/21 Status: Ordered Lasix 40 mg oral tablet 40 mg, 1, tablet, By Mouth, Daily, # 30 tablet, Refills 0, Tot. Refills 0, Maintenance, 09/17/21 13:32:00 EST, Route to Pharmacy Electronically, [facility]/pharmacy #[id number], Partial fill upon patient request if [...] opioid drug. Start Date: 09/14/21 Status: Ordered metoprolol succinate 25 mg oral capsule, extended release 3 capsule = 75 mg, By Mouth, Daily, # 90 capsule, 2 Refills, Maintenance, 09/17/21 13:31:00 EST, ERCapsule, [facility]/pharmacy #[id number], Partial fill upon patient request if the prescription is for a schedule II opioid drug., 160, cm, 09/15/21 13:21:00 EST, H... Start Date: 09/17/21 Stop Date: 12/16/21 Status: Ordered oxyCODONE 15 mg oral tablet 1 tablet = 15 mg, By Mouth, Every 6 hours, PRN as needed for pain, 0 Refills, Maintenance, 09/15/2219:12:00 EST, Tablet, Partial fill upon patient request if the prescription is for a schedule II opioid drug. Start Date: 09/14/21 Status: Ordered Vitamin D2 2000 intl units [...] abdominal hysterectomy and bilateral salpingo-oophorectomy Confirmed Active Note * Event Display: Cardiac Rehab Telemetry Report Authored Date: * Event Display: Cardiac Rehab Telemetry Report Authored Date: * Event Display: Cardiac Rehab Telemetry Report Authored Date: Patient Care team information Care Team Personnel Name: Da Campos NP Position: Reference Physician Member Role: PCP Address: Address: [address] [place] [address]- Name: Claribel Arrieta RN Position: S OB RN Member Role: Primary Care Nurse Care Team Related Persons Name: ODALYSLEO POLK Address: home [address] [place] [address]
--- OUTSIDE RECORDS SUMMARY | 2024-06-07 12:58 | XMS_ITS | Continuity of Care Document ---
Author Organization [facility] Address [address] [place] [address]- Care Team Providers Care Realtime Court Reporter Name Role Phone Da Campos NP Primary Care Physician [phone] [place] [facility] [place]21 - 11/25/21 [facility] [address] [place] [address] Attending Physician: Ramana Peters MD Admitting Physician: Ramana Peters MD Referring Physician: Da Campos NP Allergies, Adverse Reactions, Alerts No Known Allergies [...] opioid drug. Start Date: 09/14/21 Status: Ordered Humalog 100 u/ml subcutaneous injection [...] 09/17/21 13:32:00 EST, Route to Pharmacy Electronically, [facility]/pharmacy #[id number], Partial fill upon patient request if [...] 2 Refills, Maintenance, 09/17/21 13:31:00 EST, ERCapsule, [facility]/pharmacy #[id number], Partial fill upon patient request if [...] Date: 09/14/21 Status: Ordered Problem List Condition Effective Dates Status Health Status Inform ant Cellulitis(Confirmed) Active Cholecystectomy(Confirmed) Active Chronic ulcer of leg(Confirmed) Active DUB - Dysfunctional uterine bleeding(Confirmed) Active Hypertension(Confirmed) Active IDDM - Insulin-dependent danuta betes mellitus(Confirmed) Active Morbid obesity(Confirmed) Active Panniculectomy(Confirmed) Active Severe obesity(Confirmed) Active DENIA BSO - Total abdominal hy sterectomy and bilateral salpingo-oophorectomy(Confirmed) Active
--- OUTSIDE RECORDS SUMMARY | 2024-06-07 12:58 | XMS_ITS | Continuity of Care Document ---
Author Organization [facility] Address [address] [place] [address]- Care Team Providers Care Energy Conservation Engineer Name Role Phone Andres BARGER, Da Esquivel Primary Care Physician Encounter [facility] Date(s): 05/16/23 - 06/15/23 [facility] [address] [place] [address]- Allergies, Adverse Reactions, Alerts No Known Allergies [...] opioid drug. Start Date: 01/21/22 Status: Ordered furosemide 20 mg oral tablet [...] opioid drug. Start Date: 05/16/23 Status: Ordered Humalog 100 u/ml subcutaneous injection [...] 13:32:00 EST, Route to Pharmacy Electronically, [facility]/pharmacy #[id number], Partial fill upon patient request [...] Refills, Maintenance, 09/17/21 13:31:00 EST, ERCapsule, [facility]/pharmacy #[id number], Partial fill upon patient request [...] 5 Refills, Maintenance, 05/30/23 12:46:00 EST, Solution, [facility] #[id number], 160, cm, 05/01/23 14:43:00 EDT,Height, 148, kg, [...] Reference Physician Member Role: PCP Address: Address: [address] [place] [id number] Name: Claribel Arrieta RN Position: Ayana OB RN Member Role: Primary Care Nurse Name: Radha Hernandez MD Position: LIANG Renal MD Member Role: Lifetime Consulting Physician Address: Address: [address] [facility] [place] [address]- Care Team Related Persons Name: LEO MORROW Address: home [address] [place] [address]
--- OUTSIDE RECORDS SUMMARY | 2024-06-07 12:58 | XMS_ITS | Continuity of Care Document ---
Author Organization [facility] Address [address] [place] [address]- Care Team Providers Care Inserter Name Role Phone Andres BARGER, Da Esquivel Primary Care Physician [phone] Encounter [facility] Date(s): 06/21/23 - 07/21/23 [facility] [address] [place] [id number] Allergies, Adverse Reactions, Alerts No Known Allergies [...] 09/17/21 13:32:00 EST, Route to Pharmacy Electronically, [facility]/pharmacy #[id number], Partial fill upon patient [...] 2 Refills, Maintenance, 09/17/21 13:31:00 EST, ERCapsule, [facility]/pharmacy #[id number], Partial fill upon patient request if the prescription is for a schedule II opioid drug., 160, cm, 09/15/21 13:21:00 EST, H... Start Date: 09/17/21 Stop Date: 12/16/21 Status: Ordered NovoLOG PenFill 100 units/mL injectable solution = 5 units, Subcutaneous Infusion, 3 times a day before meals, e11.9 insurance prefers novolog, # 10mL, 5 Refills, Maintenance, 07/20/23 14:02:00 EST, [facility] #[id number], Partial fill upon patient request if the prescription is for a schedul... Start Date: 07/20/23 Status: Ordered NovoLOG PenFill 100 units/mL injectable solution = 5 units, Subcutaneous Infusion, 3 times a day before meals, e11.9 insurance prefers novolog, # 15mL, 3 Refills, Maintenance, 07/20/23 14:05:00 EST, [facility] #[id number], Partial fill upon patient request if the [...] 5 Refills, Maintenance, 05/30/23 12:46:00 EST, Solution, [facility] #[id number], 160, cm, 05/01/23 14:43:00 EDT,Height, 148, kg, [...] Physician Member Role: PCP Address: Address: [address] [place] [address]- Name: Claribel Arrieta RN Position: Ayana OB RN Member Role: Primary Care Nurse Name: Radha Hernandez MD Position: Ayana Renal MD Member Role: Lifetime Consulting Physician Address: Address: [address] [place] [address] [place] [address]- Care Team Related Persons Name: LEO MORROW Address: home [address] [place] [address]
--- OUTSIDE RECORDS SUMMARY | 2024-06-07 12:58 | XMS_ITS | Continuity of Care Document ---
Author Organization [facility] Address [address] [place] [address]- Care Team Providers Care Production Line Worker Name Role Phone Andres BARGER, Da Esquivel Primary Care Physician Encounter [facility] Date(s): 05/29/23 - 06/28/23 [facility] [address] [place] [id number] Allergies, Adverse Reactions, Alerts No Known Allergies [...] 09/17/21 13:32:00 EST, Route to Pharmacy Electronically, [facility]/pharmacy #[id number], Partial fill upon patient request if [...] 2 Refills, Maintenance, 09/17/21 13:31:00 EST, ERCapsule, [facility]/pharmacy #[id number], Partial fill upon patient request if [...] 5 Refills, Maintenance, 05/30/23 12:46:00 EST, Solution, [email or web address] #[id number], 160, cm, 05/01/23 14:43:00 EDT,Height, 148, kg, [...] Reference Physician Member Role: PCP Address: Address: [address] [place] [id number] Name: Claribel Arrieta RN Position: Ayana OB RN Member Role: Primary Care Nurse Name: Radha Hernandez MD Position: LIANG Renal MD Member Role: Lifetime Consulting Physician Address: Address: [address] [facility] [place] [address]- Care Team Related Persons Name: LEO MORROW Address: home [address] [place] [address]
--- OUTSIDE RECORDS SUMMARY | 2024-06-07 12:58 | XMS_ITS | Continuity of Care Document ---
Author Organization [facility] Address [address] [facility], [address] Floor, [address] [place] [address]- Care Team Providers Care Candlemaking Laborer Name Role Phone Andres BARGER, Da Esquivel Primary Care Physician Encounter [facility] Date(s): 01/23/20 - 02/22/20 [facility] [address], [address], [address] [place] [address] [facility] Allergies, Adverse Reactions, Alerts Substance Reaction Severity Status NKA Active Medications Benicar 20 mg oral tablet 1 tablet, By Mouth, Daily, # 30 tablet, 0 Refills, Maintenance, Tablet Start Date: 02/09/11 Status: Ordered Diovan 320 mg oral tablet 320, mg, 1, tablet, By Mouth, Daily, 0, 0, 12/08/07 13:06:46, Print AKI Number, [id number], Constant Indicator Start Date: 12/08/07 Status: Ordered gabapentin 100 mg oral capsule 300 mg, 3, capsule, By Mouth, Daily at bedtime, Start 1 cap bedtime x 1 week, then 2 caps bedtime x1 week, then 3 caps bedtime., # 90 capsule, Refills 5, Tot. Refills 5, Maintenance, 12/25/19 8:09:00 EDT, Route to Pharmacy Electronically, [facility]... Start Date: 12/25/19 Stop Date: 06/22/20 Status: Ordered Humalog Inj 2-10 units, Subcutaneous Infusion, 3 times a day before meals, Scheduled / PRN, 0, 0, 12/08/07 13:59:09, sliding scale, Print AKI Number, 69 Start Date: 12/08/07 Status: Ordered Lantus Inj = 90 units, Subcutaneous Injection, Daily in AM, 0 Refills, Maintenance Start Date: 12/08/07 Status: Ordered LORazepam 1 mg oral tablet See Instructions, By Mouth, 1 tablet 30 minutes prior to test, may repeat x1 as needed at time of test. NO DRIVING., # 2 tablet, 0 Refills, Maintenance, 12/25/19 8:10:00 EDT, [facility] #[id number] Start Date: 12/25/19 Status: Ordered Norvasc 10 mg oral tablet 10, mg, 1, tablet, By Mouth, Daily, 0, 0, 12/08/07 13:07:02, Print AKI Number, [id number], Constant Indicator Start Date: 12/08/07 Status: Ordered oxycodone 15 mg oral tablet 1 tablet, By Mouth, 2 times a day, PRN for pain, 0 Refills, Maintenance, Tablet Start Date: 02/09/11 Status: Ordered OxyContin 20 mg oral tablet, extended release 1 tablet, By Mouth, 3 times a day, PRN pain, 0 Refills, Maintenance, ER Tablet Start Date: 02/09/11 Status: Ordered Problem List Condition Effective Dates Status Health Status Inform ant Cellulitis(Confirmed) Active Cholecystectomy(Confirmed) Active Chronic ulcer of leg(Confirmed) Active DUB - Dysfunctional uterine bleeding(Confirmed) Active Hypertension(Confirmed) Active IDDM - Insulin-dependent danuta betes mellitus(Confirmed) Active Morbid obesity(Confirmed) Active Panniculectomy(Confirmed) Active DENIA BSO - Total abdominal hy sterectomy and bilateral salpingo-oophorectomy(Confirmed) Active
--- OUTSIDE RECORDS SUMMARY | 2024-06-07 12:58 | XMS_ITS | Continuity of Care Document ---
Author Organization [facility] Address [address] [place] [address]- Care Team Providers Care Heel Seat Filler Name Role Phone Andres BARGER, Da Esquivel Primary Care Physician [phone] Encounter [facility] Date(s): 10/26/21 - 11/25/21 Wound Care [address] [place] [address] Attending Physician: Wu Nina Admitting Physician: AdmtrWu Referring Physician: Admtr, Wu Allergies, Adverse Reactions, Alerts No Known Allergies [...] 09/17/21 13:32:00 EST, Route to Pharmacy Electronically, [facility]/pharmacy #[id number], Partial fill upon patient request [...] 2 Refills, Maintenance, 09/17/21 13:31:00 EST, ERCapsule, [facility]/pharmacy #[id number], Partial fill upon patient request [...]
--- OUTSIDE RECORDS SUMMARY | 2024-06-07 12:58 | XMS_ITS | Continuity of Care Document ---
Author Organization [facility] Address [address] [place] [address]- Care Team Providers Care Technical Architect Name Role Phone Andres BARGER, Da Esquivel Primary Care Physician [phone] [facility]counter [facility] Date(s): 07/20/23 - 08/19/23 [facility] [address] [place] [id number] Allergies, Adverse Reactions, Alerts No Known [...] 09/17/21 13:32:00 EST, Route to Pharmacy Electronically, [facility]/pharmacy #[id number], Partial fill upon patient request if [...] 2 Refills, Maintenance, 09/17/21 13:31:00 EST, ERCapsule, [facility]/pharmacy #[id number], Partial fill upon patient request if the prescription is for a schedule II opioid drug., 160, cm, 09/15/21 13:21:00 EST, H... Start Date: 09/17/21 Stop Date: 12/16/21 Status: Ordered NovoLOG PenFill 100 units/mL injectable solution = 5 units, Subcutaneous Infusion, 3 times a day before meals, e11.9 insurance prefers novolog, # 10mL, 5 Refills, Maintenance, 07/20/23 14:02:00 EST, [facility] #[id number], Partial fill upon patient request if the prescription is for a schedul... Start Date: 07/20/23 Status: Ordered NovoLOG PenFill 100 units/mL injectable solution = 5 units, Subcutaneous Infusion, 3 times a day before meals, e11.9 insurance prefers novolog, # 15mL, 3 Refills, Maintenance, 07/20/23 14:05:00 EST, [facility] #[id number], Partial fill upon patient request if the [...] drug. Start Date: 09/14/21 Status: Ordered Ozempic 8 mg/3 mL (2 mg dose) subcutaneous solution = 2 mg, Subcutaneous Injection, Every week, in the abdomen, thigh, or upper arm, # 3 mL, 11 Refills, Maintenance, 08/03/23 12:46:00 EST, Solution, [facility] #[id number], 160, cm, 05/01/23 14:43:00 EDT, Height, 148, kg, 01/21/22 6:51:00 EDT, Dry... Start Date: 08/03/23 Status: Ordered pregabalin 75 mg oral capsule [...] Physician Member Role: PCP Address: Address: [address] [place] [address]- Name: Claribel Arrieta RN Position: Ayana OB RN Member Role: Primary Care Nurse Name: Radha Hernandez MD Position: Ayana Renal MD Member Role: Lifetime Consulting Physician Address: Address: [address] [facility] [place] [address]- Care Team Related Persons Name: LEO MORROW Address: home [address] [place] [id number]
--- OUTSIDE RECORDS SUMMARY | 2024-06-07 12:58 | XMS_ITS | Continuity of Care Document ---
Author Organization [facility] ter Address [address] [place] [address]- Care Team Providers Care Tube Skiver Name Role Phone Andres BARGER, Da Esquivel Primary Care Physician [phone] Encounter [facility] Date(s): 01/21/22 - 01/21/[address] [address]- Discharge Disposition: A-D/C Home Attending Physician: Jimena Jamison MD Admitting Physician: Jimena Jamison MD Referring Physician: Kitty Freeman NP Allergies, Adverse Reactions, Alerts No Known [...] 13:32:00 EST, Route to Pharmacy Electronically, [facility]/pharmacy #[id number], Partial fill upon patient request [...] Refills, Maintenance, 09/17/21 13:31:00 EST, ERCapsule, [facility]/pharmacy #[id number], Partial fill upon patient request [...] abdominal hy sterectomy and bilateral salpingo-oophorectomy(Confirmed) Active Vital Signs Most recent to oldest [Reference Range]: 1 2 3 Height 160 cm (01/21/22 6:51 AM) 160 cm (01/21/22 6:13 AM) Weight 148 kg (01/21/22 6:51 AM) 148 kg (01/21/22 6:13 AM) Oxygen Saturation [94-100 %] 96 % (01/21/22 1:15 PM) 95 % (01/21/22 12:45 PM) 94 % (01/21/22 12:30 PM) Pulse Rate [55-90 bpm] 72 bpm (01/21/22 6:51 AM) Body Mass Index [18.5-24.99] 57.81 *>HHI* (01/21/22 6:51 AM) Blood Pressure [90-138/55-84 mm Hg] 144/80mm Hg *H* (01/21/22 1:15 PM) 135/82mm Hg (01/21/22 12:45 PM) 148/80mm Hg *H* (01/21/22 12:30 PM) Respiratory Rate [16-30 br/min] 14 br/min *L* (01/21/22 1:15 PM) 20 br/min (01/21/22 12:45 PM) 14 br/min *L* (01/21/22 12:30 PM) Temperature [96.8-100.4 DegF] 97.7 DegF (01/21/22 6:51 AM) Mode of Delivery (Oxygen) Room air (01/21/22 1:15 PM) Room air (01/21/22 12:45 PM) Room air (01/21/22 12:30 PM) Blood pressure sites Arm, left (01/21/22 6:51 AM) Temperature Route Temporal (01/21/22 6:51 AM) Dry Weight 148 kg (01/21/22 6:51 AM) 148 kg (01/21/22 6:13 AM) Weight Obtained Via Standing scale (01/21/22 6:13 AM) Dry Weight Obtained Via Standing scale (01/21/22 6:13 AM)
--- OUTSIDE RECORDS SUMMARY | 2024-06-07 12:58 | XMS_ITS | Continuity of Care Document ---
Author Organization [facility] Address [address] [place] [address]- Care Team Providers Care Waiter Waitress Name Role Phone Andres BARGER, Da Esquivel Primary Care Physician [phone] Encounter [facility] Date(s): 06/05/23 - 07/05/23 [facility] [address] [place] [address]- Allergies, Adverse Reactions, Alerts No Known Allergies [...] 5 Refills, Maintenance, 05/30/23 12:46:00 EST, Solution, [facility] #[id number], 160, cm, 05/01/23 14:43:00 EDT,Height, 148, kg, [...] Reference Physician Member Role: PCP Address: Address: [address] [place] [id number] Name: Claribel Arrieta RN Position: Ayana OB RN Member Role: Primary Care Nurse Name: Radha Hernandez MD Position: LIANG Renal MD Member Role: Lifetime Consulting Physician Address: Address: [address] [facility] [place] [address]- Care Team Related Persons Name: LEO MORROW Address: home [address] [place] [address]
--- OUTSIDE RECORDS SUMMARY | 2024-06-07 12:58 | XMS_ITS | Continuity of Care Document ---
Author Organization [facility] Address [address] [facility], [address]r d Floor, [address] [place] [address]- Care Team Providers Care Roller Mill Tender Name Role Phone Andres BARGER, Da Esquivel Primary Care Physician [phone] [facility] [facility] [place] 07/22/20 - 08/21/20 [facility] [address], [address], [address] [place] [address] Attending Physician: Admaudrey, Wu Admitting Physician: Admtr, Ar8 Referring Physician: Admtr, Ar8 Allergies, Adverse Reactions, Alerts Substance Reaction Severity Status NKA Active Medications Diovan 320 mg oral tablet 320, mg, 1, tablet, By Mouth, Daily, 0, 0, 12/08/07 13:06:46, Print AKI Number, [id number], Constant Indicator Start Date: 12/08/07 Status: Ordered gabapentin 300 mg oral capsule 300 mg, 1, capsule, By Mouth, 3 times a day, # 90 capsule, Refills 5, Tot. Refills 5, Maintenance, 03/18/20 15:48:00 EDT, Route to Pharmacy Electronically, [facility]/pharmacy #[id number], Increasing dose., 160, cm, 03/18/20 15:33:00 EDT, Height Start Date: 03/18/20 Stop Date: 09/14/20 Status: Ordered Humalog Inj 2-10 units, Subcutaneous Infusion, 3 times a day before meals, Scheduled / PRN, 0, 0, 12/08/07 13:59:09, sliding scale, Print AKI Number, 69 Start Date: 12/08/07 Status: Ordered Lantus Inj = 90 units, Subcutaneous Injection, Daily in AM, 0 Refills, Maintenance Start Date: 12/08/07 Status: Ordered Latanoprost Ophthalmic Daily before dinner, 0 Refills, Maintenance, 03/18/20 15:36:00 EDT Start Date: 03/18/20 Status: Ordered metoprolol metoprolol, Refills 0, Maintenance, 03/18/20 15:37:00 EDT, Supply Start Date: 03/18/20 Status: Ordered Norvasc 10 mg oral tablet 10, mg, 1, tablet, By Mouth, Daily, 0, 0, 12/08/07 13:07:02, Print AKI Number, [id number], Constant Indicator Start Date: 12/08/07 Status: Ordered oxycodone 15 mg oral tablet 1 tablet, By Mouth, 2 times a day, PRN for pain, 0 Refills, Maintenance, Tablet Start Date: 02/09/11 Status: Ordered Problem List Condition Effective Dates Status Health Status Inform ant Cellulitis(Confirmed) Active Cholecystectomy(Confirmed) Active Chronic ulcer of leg(Confirmed) Active DUB - Dysfunctional uterine bleeding(Confirmed) Active Hypertension(Confirmed) Active IDDM - Insulin-dependent danuta betes mellitus(Confirmed) Active Morbid obesity(Confirmed) Active Panniculectomy(Confirmed) Active DENIA BSO - Total abdominal hy sterectomy and bilateral salpingo-oophorectomy(Confirmed) Active
--- OUTSIDE RECORDS SUMMARY | 2024-06-07 12:58 | XMS_ITS | Continuity of Care Document ---
Author Organization [facility] Address [address] [place] [address]- Care Team Providers Care Case Sealer Name Role Phone Andres BARGER, Da Esquivel Primary Care Physician [phone] Encounter [facility] Date(s): 01/25/24 - 02/24/24 [facility] [address] [place] [id number] Attending Physician: Wu Nina Admitting Physician: Admtr, Ar8 Referring Physician: Admtr, Ar8 Allergies, Adverse Reactions, Alerts No Known Allergies [...] opioid drug. Start Date: 01/25/23 Status: Ordered dexcome g7 sensors dexcome g7 sensors, See Instructions, # 3 each, Refills 5, Tot. Refills 5, Maintenance, e11.9 use to continuously monitor glucose level change every 10 days, 07/20/23 14:08:00 EST, Supply, 160, cm, 05/01/23 14:43:00 EDT, Height, 148, kg, 01/21/22 6:... Start Date: 07/20/23 Status: Ordered furosemide 20 mg oral tablet 40 mg, 2, tablet, By Mouth, Daily, # 180 tablet, Refills 3, Tot. Refills 3, Maintenance, 10/03/23 15:35:00 EDT, [id number], Partial fill upon patient request if the prescription is for a schedule II o... Start Date: 10/03/23 Status: Ordered Humalog 100 u/ml subcutaneous injection = 1 units, Subcutaneous Infusion, 0 Refills, Maintenance, 10/03/23 15:10:00 EDT, Partial fill upon patient request if the prescription is for a schedule II opioid drug. Start Date: 10/03/23 Status: Ordered ibuprofen 800 mg oral tablet See Instructions, 1-2 tablet By Mouth daily, Refills 0, Maintenance, 09/14/21 20:42:00 EST, Instructions Replace Required Details, Partial fill upon patient request if the prescription is for a schedule II opioid drug. Start Date: 09/14/21 Status: Ordered ketoconazole 2% topical shampoo Topical, 0 Refill(s), Apply topically 2 (two) times a week Apply to damp skin, lather, leave on 5 minutes, and rinse, 0 Refills, 05/16/23 12:49:00 EDT, Partial fill upon patient request if the prescription is for a schedule II opioid drug. Start Date: 05/16/23 Status: Ordered lisinopril 5 mg oral tablet 90 each, 0 Refill(s), TAKE 1 TABLET BY MOUTH EVERY DAY, Refills 0, 05/01/23 16:25:00 EDT, Partial fill upon patient request if the prescription is for a schedule II opioid drug. Start Date: 05/01/23 Status: Ordered magnesium oxide 400 mg oral capsule 1 capsule = 400 mg, By Mouth, Daily, 0 Refills, Maintenance, 10/03/23 15:13:00 EDT, Partial fill upon patient request if the prescription is for a schedule II opioid drug. Start Date: 10/03/23 Status: Ordered metoprolol succinate 50 mg oral capsule, extended release 1 capsule = 50 mg, By Mouth, Daily, 0 Refills, Maintenance, 10/03/23 15:09:00 EDT, Partial fill upon patient request if the prescription is for a schedule II opioid drug. Start Date: 10/03/23 Status: Ordered NovoLOG PenFill 100 units/mL injectable solution = 5 units, Subcutaneous Infusion, 3 times a day before meals, e11.9 insurance prefers novolog, # 10mL, 5 Refills, Maintenance, 07/20/23 14:02:00 EST, [facility] #[id number], Partial fill upon patient request if the prescription is for a schedul... Start Date: 07/20/23 Status: Ordered NovoLOG PenFill 100 units/mL injectable solution = 5 units, Subcutaneous Infusion, 3 times a day before meals, e11.9 insurance prefers novolog, # 15mL, 3 Refills, Maintenance, 07/20/23 14:05:00 EST, [facility] #[id number], Partial fill upon patient request if the [...] 11 Refills, Maintenance, 08/03/23 12:46:00 EST, Solution, [facility] #[id number], 160, cm, 05/01/23 14:43:00 EDT, Height, 148, kg, 01/21/22 6:51:00 EDT, Dry... Start Date: 08/03/23 Status: Ordered Pen [place], 31 G x 5 mm BD Ultra Fine III See Instructions, # 120 each, Refills 11, Tot. Refills 11, Maintenance, use of administration of insulin 4 times daily, 01/25/24 12:40:00 EDT, dx: E11.9, Supply, 160, cm, 01/25/24 11:49:00 EDT, Height Start Date: 01/25/24 Stop Date: 01/19/25 Status: Ordered pregabalin 75 mg oral capsule [...] opioid drug. Start Date: 05/01/23 Status: Ordered Semglee (Prefilled Pen) 100 units/mL subcutaneous solution = 56 units, Subcutaneous Infusion, Daily, # 75 mL, 3 Refills, Maintenance, 01/25/24 12:38:00 EDT, [facility] #[id number], 90 day supply; Dx: E11.9, 160, cm, 01/25/24 11:49:00 EDT, Height Start Date: 01/25/24 Status: Ordered Tylenol 8 Hour 650 mg oral tablet, extended release 2 tablet = 1,300 mg, By Mouth, Every 8 hours, PRN as needed for pain, # 50 tablet, 0 Refills, Maintenance, 10/03/23 15:11:00 EDT, ER Tablet, Partial fill upon patient request if the prescription is for a schedule II opioid drug. Start Date: 10/03/23 Status: Ordered Vitamin D2 2000 intl units [...] abdominal hysterectomy and bilateral salpingo-oophorectomy Confirmed Active Social History Social History Type Response Smoking Status Never (less than 100 in lifetime) entered on: 10/03/23 Sex Patient Care team information Care Team Personnel Name: Andres BARGER , Da Esquivel Position: Reference Physician Member Role: PCP Address: Address: [address] [place] [address]- Name: Claribel Arrieta RN Position: [facility] OB RN Member Role: Primary Care Nurse Name: Radha Hernandez MD Position: [facility] Renal MD Member Role: Lifetime Consulting Physician Address: Address: [address] [place] [address] [place] [address]- Care Team Related Persons Name: LEO MORROW Address: home [address] [place] [address]
--- OUTSIDE RECORDS SUMMARY | 2024-06-07 12:58 | XMS_ITS | Continuity of Care Document ---
Author Organization [facility] Address [address] [place] [address]- Care Team Providers Care Cloth Bin Packer Name Role Phone Andres BARGER, Da Esquivel Primary Care Physician [facility] Date(s): 04/20/23 - 05/20/23 [facility] [address] [place] [address]- Allergies, Adverse Reactions, Alerts No Known Allergies [...] Ordered insulin glargine 100 units/mL subcutaneous solution 65 Unknown, Subcutaneous, 0 Refill(s), Inject 65 Units [...] 09/17/21 13:32:00 EST, Route to Pharmacy Electronically, [facility]/pharmacy #[id number], Partial fill upon patient [...] 2 Refills, Maintenance, 09/17/21 13:31:00 EST, ERCapsule, [facility]/pharmacy #[id number], Partial fill upon patient [...] drug. Start Date: 09/14/21 Status: Ordered Ozempic 2 mg/3 mL (0.25 mg or 0.5 mg dose) subcutaneous solution 3 mL, 0 Refill(s), INJECT 0.5 MG (0.736 ML) SUBCUTANEOUSLY EVERY WEEK FOR 30 DAYS FOR 4 WEEKS, 0 Refills, 05/01/23 16:25:00 EDT, Partial fill upon patient request if the prescription is for a schedule II opioid drug. Start Date: 05/01/23 Status: Ordered pregabalin 75 mg oral capsule [...] Physician Member Role: PCP Address: Address: [address] [place] [address]- Name: Claribel Arrieta RN Position: [facility] OB RN Member Role: Primary Care Nurse Name: Radha Hernandez MD Position: [facility] Renal MD Member Role: Lifetime Consulting Physician Address: Address: [address] [facility] [place] [address]- Care Team Related Persons Name: LEO MORROW Address: [address] [address]
--- OUTSIDE RECORDS SUMMARY | 2024-06-07 12:58 | XMS_ITS | Continuity of Care Document ---
Author Organization [facility] Address [address] [place] [address]- Care Team Providers Care Wrapping Machine Helper Name Role Phone Andres BARGER, Da Esquivel Primary Care Physician [facility] Date(s): 08/02/23 - 09/01/23 [facility] [address] [place] [id number] Allergies, Adverse Reactions, Alerts No Known Allergies [...] 09/17/21 13:32:00 EST, Route to Pharmacy Electronically, [facility]/pharmacy #[id number], Partial fill upon patient request [...] 2 Refills, Maintenance, 09/17/21 13:31:00 EST, ERCapsule, [facility]/pharmacy #[id number], Partial fill upon patient request if the prescription is for a schedule II opioid drug., 160, cm, 09/15/21 13:21:00 EST, H... Start Date: 09/17/21 Stop Date: 12/16/21 Status: Ordered NovoLOG PenFill 100 units/mL injectable solution = 5 units, Subcutaneous Infusion, 3 times a day before meals, e11.9 insurance prefers novolog, # 10mL, 5 Refills, Maintenance, 07/20/23 14:02:00 EST, [facility] #[id number], Partial fill upon patient request if the prescription is for a schedul... Start Date: 07/20/23 Status: Ordered NovoLOG PenFill 100 units/mL injectable solution = 5 units, Subcutaneous Infusion, 3 times a day before meals, e11.9 insurance prefers novolog, # 15mL, 3 Refills, Maintenance, 07/20/23 14:05:00 EST, [facility] #[id number], Partial fill upon patient request if the [...] 11 Refills, Maintenance, 08/03/23 12:46:00 EST, Solution, [facility] #[id number], 160, cm, 05/01/23 14:43:00 EDT, Height, 148, [...] Physician Member Role: PCP Address: Address: [address] [place] [address]- Name: Claribel Arrieta RN Position: Ayana OB RN Member Role: Primary Care Nurse Name: Radha Hernandez MD Position: [facility] Renal MD Member Role: Lifetime Consulting Physician Address: Address: [address] [facility] [place] [address]- Care Team Related Persons Name: LEO MORROW Address: home [address] [place] [address]
--- OUTSIDE RECORDS SUMMARY | 2024-06-07 12:58 | XMS_ITS | Continuity of Care Document ---
Author Organization [facility] ter Address [address] [place] [address]- Care Team Providers Care Art Coordinator Name Role Phone Andres BARGER, Da Esquivel Primary Care Physician Encounter [facility] Date(s): 08/27/19 - 02/21/[address] [address]- [facility] Attending Physician: Da Campos NP Admitting Physician: Da Campos NP Referring Physician: Da Campos NP Allergies, Adverse Reactions, Alerts Substance Reaction Severity Status NKA Active Medications Benicar 20 mg oral tablet 1 tablet, By Mouth, Daily, # 30 tablet, 0 Refills, Maintenance, Tablet Start Date: 02/09/11 Status: Ordered Diovan 320 mg oral tablet 320, mg, 1, tablet, By Mouth, Daily, 0, 0, 12/08/07 13:06:46, Print AKI Number, [id number], Constant Indicator Start Date: 12/08/07 Status: Ordered [...] scale, Print AKI Number, 69 Start Date: 5/24/08 Status: Ordered Lantus Inj = 90 units, Subcutaneous Injection, Daily in AM, 0 Refills, Maintenance Start Date: 12/08/07 Status: Ordered LORazepam 1 mg oral tablet See Instructions, By Mouth, 1 tablet 30 minutes prior to test, may repeat x1 as needed at time of test. NO DRIVING., # 2 tablet, 0 Refills, Maintenance, 12/25/19 8:10:00 EDT, [facility]/pharmacy #[id number] Start Date: 12/25/19 Status: Ordered Norvasc 10 mg oral tablet 10, mg, 1, tablet, By Mouth, Daily, 0, 0, 12/08/07 13:07:02, Print AKI Number, [id number], Constant Indicator Start Date: 12/08/07 Status: Ordered [...]
--- OUTSIDE RECORDS SUMMARY | 2024-06-07 12:58 | XMS_ITS | Continuity of Care Document ---
Author Organization [facility] Address [address] [place] [address]- Care Team Providers Care Valet Parker Name Role Phone Andres BARGER, Da Esquivel Primary Care Physician [facility] Date(s): 07/20/23 - 08/19/23 [facility] [address] [place] [id number] Allergies, Adverse Reactions, Alerts No Known Allergies [...] 09/17/21 13:32:00 EST, Route to Pharmacy Electronically, [facility]/pharmacy #[id number], Partial fill upon patient [...] 2 Refills, Maintenance, 09/17/21 13:31:00 EST, ERCapsule, [facility]/pharmacy #[id number], Partial fill upon patient request if the prescription is for a schedule II opioid drug., 160, cm, 09/15/21 13:21:00 EST, H... Start Date: 09/17/21 Stop Date: 12/16/21 Status: Ordered NovoLOG PenFill 100 units/mL injectable solution = 5 units, Subcutaneous Infusion, 3 times a day before meals, e11.9 insurance prefers novolog, # 10mL, 5 Refills, Maintenance, 07/20/23 14:02:00 EST, [facility] #[id number], Partial fill upon patient request if the prescription is for a schedul... Start Date: 07/20/23 Status: Ordered NovoLOG PenFill 100 units/mL injectable solution = 5 units, Subcutaneous Infusion, 3 times a day before meals, e11.9 insurance prefers novolog, # 15mL, 3 Refills, Maintenance, 07/20/23 14:05:00 EST, [facility] #[id number], Partial fill upon patient request if the [...] 11 Refills, Maintenance, 08/03/23 12:46:00 EST, Solution, [facility] #[id number], 160, cm, 05/01/23 14:43:00 EDT, Height, 148, [...] Physician Member Role: PCP Address: Address: [address] [place] [address]- Name: Claribel Arrieta RN Position: Ay[facility] OB RN Member Role: Primary Care Nurse Name: Radha Hernandez MD Position: [facility] Renal MD Member Role: Lifetime Consulting Physician Address: Address: [address] [facility] [place] [address]- Care Team Related Persons Name: LEO MORROW Address: home [address] [place] [address]
--- OUTSIDE RECORDS SUMMARY | 2024-06-07 12:58 | XMS_ITS | Continuity of Care Document ---
Author Organization [facility] Address [address] [facility], [address] d Floor, [address] [place] [address]- Care Team Providers Care Sexual Assault Counselor Name Role Phone Andres BARGER, Da Esquivel Primary Care Physician [phone] Encounter [facility] Date(s): 04/23/20 - 08/21/20 [facility] [address] [place], [address] Floor, [address] [place] [id number] Attending Physician: Leigh Benoit MD Admitting Physician: Leigh Benoit MD Allergies, Adverse Reactions, Alerts Substance Reaction Severity Status NKA Active Medications Diovan 320 mg oral tablet 320, mg, 1, tablet, By Mouth, Daily, 0, 0, 12/08/07 13:06:46, Print AKI Number, [id number], Constant Indicator Start Date: 12/08/07 Status: Ordered gabapentin 300 mg oral capsule 300 mg, 1, capsule, By Mouth, 3 times a day, # 90 capsule, Refills 5, Tot. Refills 5, Maintenance, 03/18/20 15:48:00 EDT, Route to Pharmacy Electronically, [facility]/pharmacy #[id number], Increasing dose., 160, cm, 03/18/20 15:33:00 [...] 0, 0, 12/08/07 13:07:02, Print AKI Number, [id number], Constant Indicator Start Date: 12/08/07 Status: Ordered [...]
--- OUTSIDE RECORDS SUMMARY | 2024-06-07 12:58 | XMS_ITS | Continuity of Care Document ---
Author Organization [facility] Address [address] [place] [address]- Care Team Providers Care Pier Hand Name Role Phone Andres BARGER, Da Esquivel Primary Care Physician [facility]counter [facility] Date(s): 05/16/23 - 06/15/23 [facility] [address] [place] [address]- Allergies, Adverse Reactions, Alerts No Known Allergies [...] 09/17/21 13:32:00 EST, Route to Pharmacy Electronically, [facility]/pharmacy #[id number], Partial fill upon patient [...] 2 Refills, Maintenance, 09/17/21 13:31:00 EST, ERCapsule, [facility]/pharmacy #[id number], Partial fill upon patient [...] 5 Refills, Maintenance, 05/30/23 12:46:00 EST, Solution, [facility] #[id number], 160, cm, 05/01/23 14:43:00 EDT,Height, 148, kg, [...] Reference Physician Member Role: PCP Address: Address: [address] [place] [id number] Name: Claribel Arrieta RN Position: Ayana OB RN Member Role: Primary Care Nurse Name: Radha Hernandez MD Position: LIANG Renal MD Member Role: Lifetime Consulting Physician Address: Address: [address] [facility] [place] [address]- Care Team Related Persons Name: LEO MORROW Address: home [address] [place] [id number]
--- OUTSIDE RECORDS SUMMARY | 2024-06-07 12:58 | XMS_ITS | Continuity of Care Document ---
Author Organization [facility] Address [address] [place] [address]- Care Team Providers Care Surgical Endoscopist Name Role Phone Andres BARGER, Da Esquivel Primary Care Physician [facility]counter [facility] Date(s): 05/30/23 - 06/29/23 [facility] [address] [place] [id number]- Allergies, Adverse Reactions, Alerts No Known Allergies [...] 13:32:00 EST, Route to Pharmacy Electronically, [facility]/pharmacy #[id number], Partial fill upon patient [...] Refills, Maintenance, 09/17/21 13:31:00 EST, ERCapsule, [facility]/pharmacy #[id number], Partial fill upon patient [...] 5 Refills, Maintenance, 05/30/23 12:46:00 EST, Solution, [facility] #[id number], 160, cm, 05/01/23 14:43:00 EDT,Height, 148, kg, [...] Reference Physician Member Role: PCP Address: Address: [address] [place] [id number] Name: Claribel Arrieta RN Position: Ayana OB RN Member Role: Primary Care Nurse Name: Radah Hernandez MD Position: LIANG Renal MD Member Role: Lifetime Consulting Physician Address: Address: [address] [facility] [place] [address]- Care Team Related Persons Name: LEO MORROW Address: home [address] [place] [id number]
--- OUTSIDE RECORDS SUMMARY | 2024-06-07 12:58 | XMS_ITS | Continuity of Care Document ---
Author Organization [facility] Card[facility] Address [address] [place] [address]- Care Team Providers Care Bobbin Doffer Name Role Phone Andres BARGER, Da Esquivel Primary Care Physician [phone] Encounter [facility] Date(s): 03/27/24 - 04/03/24 [facility] [address] [place] [address]- Attending Physician: Luz Maria Bishop NP Referring Physician: Da Campos NP Allergies, Adverse Reactions, Alerts No Known Allergies Immunizations Given and Recorded Vaccine Date Status Refusal Reason SARS-CoV-2 (COVID-19) mRNA-1273 vaccine 07/29/21 R ecorded SARS-CoV-2 (COVID-19) mRNA-1273 vaccine 12/01/20 R ecorded SARS-CoV-2 (COVID-19) mRNA-1273 vaccine 11/03/20 R ecorded Medications dexcome g7 sensors dexcome g7 sensors, See Instructions, # 3 each, Refills 5, Tot. Refills 5, Maintenance, e11.9 use to continuously monitor glucose level change every 10 days, 07/20/23 14:08:00 EST, Supply, 160, cm, 05/01/23 14:43:00 EDT, Height, 148, kg, 01/21/22 6:... Start Date: 07/20/23 Status: Ordered furosemide 20 mg oral tablet 20 mg, 1, tablet, By Mouth, 3 times a day, # 90 tablet, Refills 0, Maintenance, 03/27/24 14:40:00 EDT, Partial fill upon patient request if the prescription is for a schedule II opioid drug. Start Date: 03/27/24 Status: Ordered Humalog 100 u/ml subcutaneous injection = 1 units, Subcutaneous Infusion, 0 Refills, Maintenance, 10/03/23 15:10:00 EDT, Partial fill upon patient request if the prescription is for a schedule II opioid drug. Start Date: 10/03/23 Status: Ordered ketoconazole 2% topical shampoo Topical, [...] drug. Start Date: 10/03/23 Status: Ordered metoprolol 25 mg oral tablet, extended release 25 mg, 1, tablet, By Mouth, Daily, # 90 tablet, Refills 3, Tot. Refills 3, Maintenance, 03/27/24 15:57:00 EDT, Route to Pharmacy Electronically, [facility] #[id number], Partial fill upon patientrequest if the prescription is for a schedule II op... Start Date: 03/27/24 Stop Date: 03/22/25 Status: Ordered NovoLOG PenFill 100 units/mL injectable solution = 5 units, Subcutaneous Infusion, 3 times a day before meals, e11.9 insurance prefers novolog, # 10mL, 5 Refills, Maintenance, 07/20/23 14:02:00 EST, [facility] #[id number], Partial fill upon patient request if the prescription is for a schedul... Start Date: 07/20/23 Status: Ordered NovoLOG PenFill 100 units/mL injectable solution = 5 units, Subcutaneous Infusion, 3 times a day before meals, e11.9 insurance prefers novolog, # 15mL, 3 Refills, Maintenance, 07/20/23 14:05:00 EST, [facility] #[id number], Partial fill upon patient request if the prescription is for a schedul... Start Date: 07/20/23 Status: Ordered Ozempic 8 mg/3 mL (2 mg dose) subcutaneous solution = 2 mg, Subcutaneous Injection, Every week, in the abdomen, thigh, or upper arm, # 3 mL, 11 Refills, Maintenance, 08/03/23 12:46:00 EST, Solution, [facility] #[id number], 160, cm, 05/01/23 14:43:00 EDT, Height, 148, kg, 01/21/22 6:51:00 EDT, Dry... Start Date: 08/03/23 Status: Ordered Pen [place], 31 G x 5 mm BD Ultra Fine III See Instructions, # 120 each, Refills 11, Tot. Refills 11, Maintenance, use of administration of insulin 4 times daily, 01/25/24 12:40:00 EDT, dx: E11.9, Supply, 160, cm, 01/25/24 11:49:00 EDT, Height Start Date: 01/25/24 Stop Date: 01/19/25 Status: Ordered rosuvastatin 10 mg oral tablet 90 tablet, 0 Refill(s), 0 Refills, 05/01/23 16:25:00 EDT, Partial fill upon patient request if the prescription is for a schedule II opioid drug. Start Date: 05/01/23 Status: Ordered Semglee (Prefilled Pen) 100 units/mL subcutaneous solution = 56 units, Subcutaneous Infusion, Daily, # 75 mL, 3 Refills, Maintenance, 01/25/24 12:38:00 EDT, [facility] #[id number], 90 day supply; Dx: E11.9, 160, cm, [...] opioid drug. Start Date: 10/03/23 Status: Ordered Problem List Condition Confirmation Course [...] abdominal hysterectomy and bilateral salpingo-oophorectomy Confirmed Active Vital Signs Most recent to oldest [Reference Range]: 1 Height 160 cm (03/27/24 2:34 PM) Weight 132.0 kg (03/27/24 2:34 PM) Oxygen Saturation [94-100 %] 98 % (03/27/24 2:34 PM) Pulse Rate [55-90 bpm] 83 bpm (03/27/24 2:34 PM) Body Mass Index [18.5-24.99 kg/m2] 51.56 kg/m2 *>HHI* (03/27/24 2:34 PM) Blood Pressure [90-138/55-84 mm Hg] 128/ 58mm Hg (03/27/24 2:34 PM) Mode of Delivery (Oxygen) Room air (03/27/24 2:34 PM) Blood pressure sites Arm, left (03/27/24 2:34 PM) Weight Obtained Via Bed scale (03/27/24 2:34 PM) Social History Social History Type Response Smoking Status Never (less than 100 in lifetime) entered on: 10/03/23 Sex Cardiology Outpatient Note * Luz Maria Bishop NP: PERFORM, MODIFY, MODIFY Event Display: Cardiology Note Office Authored Date: [id number] Patient: ??ALE MORROW ? Age:??63 Years?Sex:??Female?:??1960?? Indication for Consult routine follow up History of Present Illness/Interval History Ale is a 63-year-old with prior history of aortic??stenosis status post aortic valve replacement??done with #23 Inspra Massey pericardial valve by Dr. Tang??at [facility], HFpEF, obesity, lymphedema,??diabetes who presents today for routine follow up. ??She endorses doing okay.?? She notes some mild SOB??here and there,??not consistent.?? Denies chest pain.?? She does note some??extremity weakness??that comes??on??off and on??all day couple of days a week.?? She notes this comeson suddenly??and is exhausting.?? She continues to be on a fluid restriction, noting she drinks??50-60??oz a day. more on the lower end. ??She notes she was advised when she was first diagnosed to stick to this fluid restriction and she has been very diligent.?? She notes she often feels??dehydrated.?? She does not check her blood pressure at home??noting it is usually??in the??100s/60s??but occasionally will have BP down in the 70s.?? She has checked her blood pressure when she feels??the extremity weakness??and notes is not consistent???sometimes will be low sometimes will be okay.?? She uses her CPAP nightly.?? She does belong to a gym??and will going do some light exercises??and will sometimes walk up another driveway but has trouble due to??hip and knee pain.?? She is on Ozempic??andtrying to lose weight, noting it is frustrating because she??only loses a pound a month.?? She??does note not eating very much, no real desire,??may only get up to 1000 yessica/day. Review of Systems pertinent positives per HPI Physical Exam Vitals & Measurements HR:??83??(Peripheral)?? BP:??128/58?? SpO2:??98%?? HT:??160??cm?? WT:??132.0??kg?? BMI:??51.56?? Weight lb/oz: 291 lb 0 oz General: Alert, sitting in chair comfortably, in NAD.??Ambulated independently,??steady??gait. Mental: Oriented x3. Appropriate affect. Converses easily HEENT: Normocephalic. Pupils round, equal. Mucous membranes moist. Neck: Full ROM Respiratory:??CTA. Nonlabored. Cardiovascular:??RRR. S1/S2. No M/R/G.??+ edema. No JVD. Gastrointestinal: Abdomen soft, non-tender, non-distended. Active bowel sounds. Neuro: Grossly intact. Moves all extremities spontaneously. Skin: Irene, warm. CDI. Assessment/Plan s/p SAVR 2021 HTN HFpEF ?? Patient presents today for??routine follow-up. ??She endorses doing well at this time. ??She??has multiple complaints as above. ??Her biggest at this time is??feeling dehydrated and having??extremityweakness couple of times??a week.?? I discussed with her this could be multifactorial??and related t o??dehydration,??low blood pressures,??and??significant calorie??deficit.?? I advised her to drink at least 64 ounces per day??and see how she does with this.?? I also advised her??to increase her??calorie intake.?? I will cut her metoprolol in half given her??low BPs.?? She is not on SGLT2 inhibitor due to recurrent skin yeast infections; Dr. Mejia wanted to??cont on BB due to aortic dilatation.?She is teary in the??is talking about her heart disease and wondering??how long she will have.?? She noted she is on a discussion group, which her has advised her to get off of,??stating that??it can be very grim??with everyone talking about how ill they are.?? I did note that while these??groups can be helpful with some information,??sometimes they can cause??more stress??and worry??and if that is occurring, maybe she should take a break??from these groups. ?? Plan continue current regimen decrease metoprolol to 25 mg daily increase fluid intake increase calorie intake call if BPs are consistently <90 follow up in 3 months Allergies NKA Home Medications Alpha Lipoic Acid 200 mg oral capsule, 200 mg= 1 capsule, By Mouth, 3 times a day aspirin 81 mg oral tablet, chewable dexcome g7 sensors, See Instructions, 5 refills furosemide 20 mg oral tablet, 20 mg= 1 tablet, By Mouth, 3 times a day furosemide 20 mg oral tablet, 40 mg= 2 tablet, By Mouth, Daily, 3 refills Humalog 100 u/ml subcutaneous injection, 1 units, Subcutaneous Infusion ibuprofen 800 mg oral tablet, See Instructions ketoconazole 2% topical shampoo lisinopril 5 mg oral tablet magnesium oxide 400 mg oral capsule, 400 mg= 1 capsule, By Mouth, Daily metoprolol succinate 50 mg oral capsule, extended release, 50 mg= 1 capsule, By Mouth, Daily NovoLOG PenFill 100 units/mL injectable solution, 5 units, Subcutaneous Infusion, 3 times a day before meals, 5 refills NovoLOG PenFill 100 units/mL injectable solution, 5 units, Subcutaneous Infusion, 3 times a day before meals, 3 refills oxyCODONE 15 mg oral tablet, 15 mg= 1 tablet, By Mouth, Every 6 hours, PRN Ozempic 8 mg/3 mL (2 mg dose) subcutaneous solution, 2 mg, Subcutaneous Injection, Every week, 11 refills Pen [place], 31 G x 5 mm BD Ultra Fine III, See Instructions, 11 refills pregabalin 75 mg oral capsule rosuvastatin 10 mg oral tablet Semglee (Prefilled Pen) 100 units/mL subcutaneous solution, 56 units, Subcutaneous Infusion, Daily,3 refills Tylenol 8 Hour 650 mg oral tablet, extended release, 1300 mg= 2 tablet, By Mouth, Every 8 hours, PRN Vitamin D2 2000 intl units oral capsule, 50 mcg= 1 capsule, By Mouth, Daily Lab Results Cardiology Labs Sodium: 140 mmol/L (05/28/23) Sodium: 139 mmol/L (05/28/23) Potassium: 4.5 mmol/L (05/28/23) Potassium: 4.5 mmol/L (05/28/23) Chloride: 101 mmol/L (05/28/23) Chloride: 101 mmol/L (05/28/23) Bicarbonate Level: 22 mmol/L (05/28/23) Bicarbonate Level: 24 mmol/L (05/28/23) Glucose Level:??117 mg/dL??High (05/28/23) Glucose Level:??118 mg/dL??High (05/28/23) Hemoglobin A1C (Monitoring):??6.6 %??High (05/28/23) BUN:??26 mg/dL??High (05/28/23) BUN:??27 mg/dL??High (05/28/23) Creatinine-Blood:??1.3 mg/dL??High (05/28/23) Creatinine-Blood:??1.3 mg/dL??High (05/28/23) Calcium: 9.7 mg/dL (05/28/23) Calcium: 9.7 mg/dL (05/28/23) Nt-Probnp: 92 pg/mL (05/28/23) TSH: 1.45 uIU/mL (05/28/23) Diagnostic Impression ECG ECG 12-Lead ?? 14:58:12 Ventricular Rate: 84 BPM Atrial Rate: 84 BPM P-R Interval: 162 ms QRS Duration: 60 ms Q-T Interval: 400 ms QTC Calculation(Bazett): 472 ms P Myton: 60 degrees R Myton: -24 degrees T Myton: 48 degrees Normal sinus rhythm Poor R wave progression in V1-V3 may be normal variant or due to anteroseptal infarct or misplaced leads Abnormal ECG When compared with ECG of 21-JAN-2022 06:25, QRS duration has decreased Nonspecific T wave abnormality now evident in Anterior leads T wave inversion no longer evident in Lateral leads Confirmed by GILBERTO LEE MD ([id number]) on 10/04/2023 1:23:49 PM ?? [place]: GILBERTO LEE MD ?? Signed By: Gilberto Lee MD ?? ECG 12-Lead ?? 14:58:12 Please click on pdf link to open report ?? Signed By: Gilberto Lee MD Echo Echocardiogram - Complete ?? 13:26:37 Summary The left ventricular size is normal. The left ventricular wall thickness is mildly increased. The LV systolic function is normal . The left ventricular ejection fraction is 65-70 %. No obvious wall motion abnormalities seen on limited views. Grade II, moderate diastolic dysfunction with pseudonormal LV filling pattern and increased LA pressure. ?? The left atrium is mildly dilated. ?? The aortic valve is is poorly visualized. The aortic valve appears calcified. There is moderate aortic stenosis. There is no significant aortic regurgitation. ?? There is moderate mitral annular calcification. Mitral leaflet excursion is mildly reduced . There is no significant mitral stenosis. ?? The right ventricle is normal in size and function. ?? Comparison No prior study available for comparison. ?? Signature ?? Signed By: Emmanuelle WATTS, Elijah Rajan Problem List/Past Medical History Ongoing Cellulitis Cholecystectomy Chronic ulcer of leg DUB - Dysfunctional uterine bleeding Hypertension IDDM - Insulin-dependent diabetes mellitus Morbid obesity Panniculectomy Severe obesity DENIA BSO - Total abdominal hysterectomy and bilateral salpingo-oophorectomy Procedure/Surgical History No qualifying data available. Social History Tobacco Use: Never (less than 100 in lifetime). Family History No family history recorded. Note * Tran Johnson: PERFORM Event Display: Patient Education/Instruction Authored Date: [id number] Ambulatory Adult Visit Summary [facility] [address] [place] [address] Name: ALE MORROW : 1960?? Visit: 03/27/2024 14:29?? Ambulatory Visit Instructions ?? Your Care Team Primary Care Provider Andres BARGER , Da Esquivel? This Visit Provider Luz Maria Bishop NP Vitals Signs Pulse Rate: 83 bpm Height: 160 cm Systolic Blood Pressure: 128 mm Hg Weight: 132 kg Diastolic Blood Pressure: 58 mm Hg Body Mass Index:??51.56 kg/m2??Critical Oxygen Saturation: 98 % Body surface area: 2.42 What to do next Scheduled Follow-Up Appointments Monday 8:15 AM EST ?? With: Cristal Robles Where: [facility] [address] [place] [address]- Status: Pending Medications The list below reflects the information in our records and provided by you today along with any changes made during this visit. Please continue your medications until treatment is completed or stopped by your provider. If this is different from the information you have or there are other questions,please contact the prescribing provider. What How Much When Why Instructions Unchanged Acetaminophen (Tylenol 8 Hour 650 mg oral tablet, extended release) 2 tab(s) Oral Every 8 hours as needed for as needed for pain Unchanged alpha-lipoic acid (Alpha Lipoic Acid 200 mg oral capsule) 1 capsule Oral 3 times a day Unchanged Aspirin (aspirin 81 mg oral tablet, chewable) 0 Refill(s), CHEW 1 TABLET BY MOUTH EVERY DAY ?? Unchanged Durable Medical Equipment (dexcome g7 sensors) See instructions e11.9 use to continuously monitor glucose level change every 10 days ?? Unchanged Durable Medical Equipment (Pen [place], 31 G x 5 mm BD Ultra Fine III) See instructions Diabetes Duration: 30 Days use of administration of insulin 4 times daily ?? Unchanged Ergocalciferol (Vitamin D2 2000 intl units oral capsule) 1 capsule Oral Daily with food ?? Unchanged Furosemide (furosemide 20 mg oral tablet) 2 tab(s) Oral Daily Unchanged Furosemide (furosemide 20 mg oral tablet) 1 tab(s) Oral 3 times a day Unchanged Ibuprofen (ibuprofen 800 mg oral tablet) See instructions 1-2 ??tablet By Mouth daily ?? Unchanged Insulin Aspart (NovoLOG PenFill 100 units/ mL injectable solution) 5 unit(s) Subcutaneous Infusion 3 times a day before meals e11.9 insurance prefers novolog ?? Unchanged Insulin Aspart (NovoLOG PenFill 100 units/ mL injectable solution) 5 unit(s) Subcutaneous Infusion 3 times a day before meals e11.9 insurance prefers novolog ?? Unchanged Insulin Glargine (Semglee (Prefilled Pen) 100 units/ mL subcutaneous solution) 56 unit(s) Subcutaneous Infusion Daily Unchanged Insulin Lispro (Humalog 100 u/ ml subcutaneous injection) 1 unit(s) Subcutaneous Infusion Unchanged Ketoconazole (ketoconazole 2% topical shampoo) Topical, 0 Refill(s), Apply topically 2 (two) times a week Apply to damp skin, lather, leave on 5 minutes, and rinse ?? Unchanged Lisinopril (lisinopril 5 mg oral tablet) 90 each, 0 Refill(s), TAKE 1 TABLET BY MOUTH EVERY DAY ?? Unchanged Magnesium Oxide (magnesium oxide 400 mg oral capsule) 1 capsule Oral Daily Unchanged Metoprolol (metoprolol succinate 50 mg oral capsule, extended release) 1 capsule Oral Daily Unchanged Oxycodone (oxyCODONE 15 mg oral tablet) 1 tab(s) Oral Every 6 hours as needed for as needed for pain Unchanged Pregabalin (pregabalin 75 mg oral capsule) 180 each, 0 Refill(s), TAKE 1 CAPSULE BY MOUTH TWICE A DAY ?? Unchanged Rosuvastatin (rosuvastatin 10 mg oral tablet) 90 tablet, 0 Refill(s) ?? Unchanged semaglutide (Ozempic 8 mg/ 3 mL (2 mg dose) subcutaneous solution) 2 Milligram Subcutaneous Injection Every week in the abdomen, thigh, or upper arm ?? Medications and Immunizations Administered Medications Given During Visit No medications given during this visit.?? Allergies (NKA means No Known Allergies) NKA Common Emergency Awareness Tips IS IT A STROKE? Act FAST and Check for these signs: FACE Does the face look uneven? ARM Does one arm drift down? SPEECH Does their speech sound strange? TIME Call at any sign of stroke ?? Heart Attack Signs Chest discomfort: Most heart attacks involve discomfort in the center of the chest and lasts more than a few minutes, or goes away and comes back. It can feel like uncomfortable pressure, squeezing, fullness or pain. Discomfort in upper body: Symptoms can include pain or discomfort in one or both arms, back, neck, jaw or stomach. Shortness of breath: With or without discomfort. Other signs: Breaking out in a cold sweat, nausea, or lightheaded. Remember, MINUTES DO MATTER. If you experience any of these heart attack warning signs, call to get immediate medical attention! ?? Smoking can increase your chances of developing chronic health problems and can cause harmful effects to other family members in your house. If you smoke, you are strongly encouraged to quit. Please call [facility] [employer] at [phone] or [phone]) or log in to [email or web address] for referrals to smoking cessation programs. ?? The National Suicide Prevention Hotline is available 06/02 if you or someone you know needs to find a reason to keep living. By calling 8-835-119-MeFeedia (2254) you'll be connected to a skilled, trained counselor at a crisis center in your area. [facility] Health Portal You can view and manage your care through the patient portal or by using a health care zachary of your choosing. [employer] is a website that allows you to securely view your medical information including your hospital discharge summary, office visit summaries, medications and follow-up visits. You can also request appointments, renew medications, and request access to your medical information using a health care zachary of your choosing, or just ask a question. You can enroll at [email or web address] or register during your next office visit. [facility], in keeping with [facility] guidance, no longer requires face masks for staff, patientsor visitors in most situations. Similiar to time spent indoors at other locations, there is the chance that you were exposed to repiratory viruses during your time with us (such as flu or COVID-19). If you develop symptoms concerning for a viral respiratory infection, please seek testing (and treatment if indicated) from your medical provider or home test kit. ?? Disclaimer: The information provided is of a general nature and is intended to be used in conjunction with the recommendations and advice of your health care practitioner. Every effort has been made to ensure that the information provided is accurate and complete at the time it is provided to you however, as your needs change, or, as new information becomes available, different or additional instructions may be required. ?? If you have questions, please consult with your primary care provider or pharmacist, as appropriate. This information is not intended to serve as substitution for assessment and evaluation by a qualified health care provider. If you do not have a primary care provider, you may find a [facility] provider by calling [facility] [employer] at [phone]. Patient Care team information Care Team Personnel Name: Da Campos NP Position: Reference Physician Member Role: PCP Address: Address: [address] [place] [id number]- Name: Claribel Arrieta RN Position: Ayana OB RN Member Role: Primary Care Nurse Name: Radha Hernandez MD Position: LIANG Renal MD Member Role: Lifetime Consulting Physician Address: Address: [address] [facility] [place] [address]- Care Team Related Persons Name: LEO MORROW Address: home [address] [place] [id number]
--- OUTSIDE RECORDS SUMMARY | 2024-06-07 12:58 | XMS_ITS | Continuity of Care Document ---
Author Organization [facility] Address [address] [place] [address]- Care Team Providers Care Priming Powder Premix Blender Name Role Phone Andres BARGER, Da Esquivel Primary Care Physician [facility] Date[facility]s): 06/05/23 - 07/05/23 [facility] [address] [place] [address]- Allergies, Adverse Reactions, Alerts No Known Allergies [...] 09/17/21 13:32:00 EST, Route to Pharmacy Electronically, [facility]/pharmacy #[id number], Partial fill upon patient [...] 2 Refills, Maintenance, 09/17/21 13:31:00 EST, ERCapsule, [facility]/pharmacy #[id number], Partial fill upon patient [...] 5 Refills, Maintenance, 05/30/23 12:46:00 EST, Solution, [facility] #[id number], 160, cm, 05/01/23 14:43:00 EDT,Height, 148, kg, [...] Reference Physician Member Role: PCP Address: Address: [address] [place] [id number] Name: Claribel Arrieta RN Position: Ayana OB RN Member Role: Primary Care Nurse Name: Radha Hernandez MD Position: LIANG Renal MD Member Role: Lifetime Consulting Physician Address: Address: [address] [facility] [place] [address]- Care Team Related Persons Name: LEO MORROW Address: home [address] [place] [address]
--- OUTSIDE RECORDS SUMMARY | 2024-06-07 12:58 | XMS_ITS | Continuity of Care Document ---
Author Organization [facility] Address [address] [place] [address]- Care Team Providers Care Couture Alterations Dressmaker Name Role Phone Andres BARGER, Da Esquivel Primary Care Physician [phone] [facility]counter [facility] Date(s): 07/20/23 - 08/19/23 [facility] [address] [place] [id number] Allergies, Adverse Reactions, Alerts No Known [...] 09/17/21 13:32:00 EST, Route to Pharmacy Electronically, [facility]/pharmacy #[id number], Partial fill upon patient request [...] 2 Refills, Maintenance, 09/17/21 13:31:00 EST, ERCapsule, [facility]/pharmacy #[id number], Partial fill upon patient request if the prescription is for a schedule II opioid drug., 160, cm, 09/15/21 13:21:00 EST, H... Start Date: 09/17/21 Stop Date: 12/16/21 Status: Ordered NovoLOG PenFill 100 units/mL injectable solution = 5 units, Subcutaneous Infusion, 3 times a day before meals, e11.9 insurance prefers novolog, # 10mL, 5 Refills, Maintenance, 07/20/23 14:02:00 EST, [facility] #[id number], Partial fill upon patient request if the prescription is for a schedul... Start Date: 07/20/23 Status: Ordered NovoLOG PenFill 100 units/mL injectable solution = 5 units, Subcutaneous Infusion, 3 times a day before meals, e11.9 insurance prefers novolog, # 15mL, 3 Refills, Maintenance, 07/20/23 14:05:00 EST, [facility] #[id number], Partial fill upon patient request if the [...] 11 Refills, Maintenance, 08/03/23 12:46:00 EST, Solution, [facility] #[id number], 160, cm, 05/01/23 14:43:00 EDT, Height, 148, [...] Physician Member Role: PCP Address: Address: [address] [place] [address]- Name: Claribel Arrieta RN Position: Ayana OB RN Member Role: Primary Care Nurse Name: Radha Hernandez MD Position: Ayana Renal MD Member Role: Lifetime Consulting Physician Address: Address: [address] [facility] [place] [address]- Care Team Related Persons Name: LEO MORROW Address: home [address] [place] [id number]
--- OUTSIDE RECORDS SUMMARY | 2024-06-07 12:58 | XMS_ITS | Continuity of Care Document ---
Author Organization [facility] Address [address] [facility], 3r d Floor, [address] [place] [address]- Care Team Providers Care Enterprise Application Developer Name Role Phone Andres BARGER, Da Esquivel Primary Care Physician Encounter [facility] Date(s): 10/01/19 - 01/23/20 [facility] [address], [address] Floor, [address] [place] [address]- [facility] Attending Physician: Nesha BARGER, Liz Matthews Admitting Physician: Nesha BARGER, Liz Matthews Referring Physician: Da Campos NP Allergies, Adverse Reactions, Alerts Substance Reaction Severity Status NKA Active Medications Benicar 20 mg oral tablet 1 tablet, By Mouth, Daily, # 30 tablet, 0 Refills, Maintenance, Tablet Start Date: 02/09/11 Status: Ordered Diovan 320 mg oral tablet 320, mg, 1, tablet, By Mouth, Daily, 0, 0, 12/08/07 13:06:46, Print AKI Number, [id number], Constant Indicator Start Date: 12/08/07 Status: Ordered [...] tablet, 0 Refills, Maintenance, 12/25/19 8:10:00 EDT, [facility]/pharmacy #[id number] Start Date: 12/25/19 Status: Ordered Norvasc 10 mg oral tablet 10, mg, 1, tablet, By Mouth, Daily, 0, 0, 12/08/07 13:07:02, Print AKI Number, [id number], Constant Indicator Start Date: 12/08/07 Status: Ordered [...]
--- OUTSIDE RECORDS SUMMARY | 2024-06-07 12:59 | XMS_ITS | Continuity of Care Document ---
Author Organization [facility] Address [address] [place] [address]- Care Team Providers Care Lithographic Printing Machinist Name Role Phone Andres BARGER, Da Esquivel Primary Care Physician [phone] [facility] Date(s): 09/14/21 - 09/17/[address] [address] Encounter Diagnosis Cellulitis(Final) - 09/14/21 Dyspnea on exertion(Final) - 09/14/21 Hypoxia(Final) - 09/14/21 Discharge Disposition: A-D/C Home Attending Physician: Sidney WATTS, Lucrecia Palacios Admitting Physician: Bonnie Meade MD Referring Physician: Not on Staff, Referring MD Allergies, Adverse Reactions, Alerts No Known [...] 09/17/21 13:32:00 EST, Route to Pharmacy Electronically, [facility]/pharmacy #[id number], Partial fill upon patient request if the prescription is for a schedule II opioid drug... Start Date: 09/17/21 Status: Ordered lisinopril 20 mg oral tablet 40 mg, Tablet, By Mouth, 09/17/21 9:00:00 EST Start Date: 09/17/21 Stop Date: 09/17/21 Status: Completed lisinopril 40 mg oral tablet 1 tablet = 40 mg, By Mouth, Daily, # 30 tablet, 0 Refills, Maintenance, 09/14/21 20:13:00 EST, Tablet, Partial fill upon patient request if the prescription is for a schedule II opioid drug. Start Date: 09/14/21 Status: Ordered metoprolol 25 mg oral tablet, extended release 25 mg, XL Tablet, By Mouth, Once, Routine, 09/17/21 13:00:00 EST, Stop date 09/17/21 13:00:00 EST Start Date: 09/17/21 Stop Date: 09/17/21 Status: Completed metoprolol 50 mg oral tablet, extended release 50 mg, XL Tablet, By Mouth, 09/17/21 9:00:00 EST Start Date: 09/17/21 Stop Date: 09/17/21 Status: Completed metoprolol succinate 25 mg oral capsule, extended release 3 capsule = 75 mg, By Mouth, Daily, # 90 capsule, 2 Refills, Maintenance, 09/17/21 13:31:00 EST, ERCapsule, [facility] #[id number], Partial fill upon patient request if [...] abdominal hy sterectomy and bilateral salpingo-oophorectomy(Confirmed) Active Results Radiology Reports * Exam Date Time Procedure Performing Provider Status 09/14/21 5:11 PM Chest 2 Views Frontal and Lat Lily Hernadez; Auth (Verified) Notes: (Chest 2 Views Frontal and Lat) Reason For Exam: Chest Pain;Other: RESULT: Chest 2 Views Frontal and Lat Chest 2 Views Frontal and Lat Hx of Present Illness: New SOB worsening for the past week. Pt noticed a leaking wound to R leg andsaw PCP for wound clinic. Labs ordered. Pt advised to seek emergency care if SOB persisting. Pt endorsing SOB with any activity, unable to lay flat, and unable to catch breath.; Reason: Other:; ChestPain; Clinical Question(s): Other:; Order Comment: N R Pt having Labs?--efd @ 4618 COMPARISON: 02/09/2011 FINDINGS: LINES AND TUBES: None. LUNGS AND PLEURA: Mild heterogeneous airspace opacities in bilateral lung bases, which likely represents a combination of small pleural effusions and atelectasis and/or developing pneumonia. Normal pulmonary vascularity. No pneumothorax. HEART, MEDIASTINUM AND MARJAN: Prominent cardiac silhouette. Normal upper mediastinal and hilar contour. BONES AND SOFT TISSUES: No acute abnormality. IMPRESSION: Mild hazy bibasilar opacities, likely represent a combination of small pleural effusions and atelectasis and/or developing pneumonia. WSN: [id number] Ordering Physician: Rocael Amos Dictated By: Jacinda Barrera MD Dictated Date/Time: 09/14/21 5:16 pm Reviewed By: Jacinda Barrera MD Signed By: Jacinda Barrera MD Signed Date/Time: 09/14/21 5:16 pm Transcribed By: CORBY Transcribed Date/Time: 09/14/21 5:14 pm Vital Signs Most recent to oldest [Reference Range]: 1 2 3 Height 160 cm (09/15/21 1: PM) Weight 165.7 kg (09/17/21 11:25 AM) 165.7 kg (09/17/21 11:25 AM) 143.5 kg (09/15/21 1: PM) Oxygen Saturation [94-100 %] 97 % (09/17/21 11:00 AM) 96 % (09/17/21 7:00 AM) 99 % (09/17/21 4:00 AM) Pulse Rate [55-90 bpm] 73 bpm (09/17/21 1: PM) 73 bpm (09/17/21 11:00 AM) 76 bpm (09/17/21 8:15 AM) Body Mass Index [18.5-24.99] 56.05 *>HHI* (09/15/21: PM) Blood Pressure [90-138/55-84 mm Hg] 142/69mm Hg *H* (09/17/21:28 PM) 161/88mm Hg *H* (09/17/21 11:00 AM) 143/54mm Hg *H* (09/17/21 8:16 AM) Respiratory Rate [16-30 br/min] 14 br/min *L* (09/17/21 11:00 AM) 20 br/min (09/17/21 7:00 AM) 17 br/min (09/17/21 4:00 AM) Temperature [96.8-100.4 DegF] 98.3 DegF (09/17/21 11:00 AM) 97.9 DegF (09/17/21 7:00 AM) 98.3 DegF (09/17/21 4:00 AM) Liters per Minute 2 L/min (09/16/21 4:00 AM) 2 L/min (09/16/21 12:00 AM) 2 L/min (09/15/21 12:00 PM) Mode of Delivery (Oxygen) Room air (09/17/21 11:00 AM) Room air (09/17/21 7:00 AM) Room air (09/17/21 4:00 AM) Blood pressure sites Arm, left (09/17/21 11:00 AM) Arm, right (09/17/21 7:00 AM) Arm, right (09/17/21 4:00 AM) Temperature Route Oral (09/17/21 11:00 AM) Oral (09/17/21 7:00 AM) Oral (09/17/21 4:00 AM) Dry Weight 143.5 kg (09/15/21 1:21 PM) Weight Obtained Via Standing scale (09/17/21 11:25 AM) Standing scale (09/17/21 11:25 AM)
--- OUTSIDE RECORDS SUMMARY | 2024-06-07 12:59 | XMS_ITS | Continuity of Care Document ---
Author Organization [facility] Address [address] [place] [address]- Care Team Providers Care Import/Export Agent Name Role Phone Andres BARGER, Da Esquivel Primary Care Physician [phone] [facility] Date(s): 03/07/23 - 04/06/23 [facility] [address] [place] [id number] Allergies, Adverse Reactions, Alerts No Known Allergies [...] 09/17/21 13:32:00 EST, Route to Pharmacy Electronically, [facility]/pharmacy #[id number], Partial fill upon patient [...] 2 Refills, Maintenance, 09/17/21 13:31:00 EST, ERCapsule, [facility]/pharmacy #[id number], Partial fill upon patient [...] Physician Member Role: PCP Address: Address: [address] [place] [address]- Name: Claribel Arrieta RN Position: [facility] OB RN Member Role: Primary Care Nurse Name: Radha Hernandez MD Position: Ayana Renal MD Member Role: Lifetime Consulting Physician Address: Address: [address] [facility] [place] [address]- Care Team Related Persons Name: LEO MORROW Address: home [address] [place] [address]
--- OUTSIDE RECORDS SUMMARY | 2024-06-07 12:59 | XMS_ITS | Continuity of Care Document ---
Author Organization [facility] Diabetes Address [address] [place] [address]- Care Team Providers Care Professor Of Environmental Science Name Role Phone Andres BARGER, Da Esquivel Primary Care Physician [facility] Date(s): 05/16/23 - 06/15/23 [facility] [address] [place] [address]- Allergies, Adverse Reactions, Alerts No Known Allergies [...] 09/17/21 13:32:00 EST, Route to Pharmacy Electronically, [facility]/pharmacy #[id number], Partial fill upon patient request [...] 2 Refills, Maintenance, 09/17/21 13:31:00 EST, ERCapsule, [facility]/pharmacy #[id number], Partial fill upon patient request [...] 5 Refills, Maintenance, 05/30/23 12:46:00 EST, Solution, [facility] #[id number], 160, cm, 05/01/23 14:43:00 EDT,Height, 148, kg, [...] Reference Physician Member Role: PCP Address: Address: [address] [place] [id number] Name: Claribel Arrieta RN Position: Ayana OB RN Member Role: Primary Care Nurse Name: Radha Hernandez MD Position: LIANG Renal MD Member Role: Lifetime Consulting Physician Address: Address: [address] [facility] [place] [address]- Care Team Related Persons Name: LEO MORROW Address: home [address] [place] [address]
== END 2024-06-03 09:30 | disposition home or self-care (01) ==
LOC: HO.HMCC 08:21
PROVIDERS: PCP Nurse Practitioner Family; Visit Provider Nurse Practitioner Family
DX: R25.2 Cramp and spasm (principal); I50.30 Unspecified diastolic (congestive) heart failure

== ENCOUNTER 2024-10-14 07:25 | Outpatient (AMB) | payer MEDICARE, OTHER, SELFPAY ==
--- NOTE | 2024-10-14 07:23 | MHC.PC.OV ---
Intake Visit Reasons: 3 mon f/up general Allergies No Known Allergies Allergy (Verified 10/14/24 07:33) Medication List - Last Reconciled 10/14/24 by BEHZAD Flores- aspirin (Adult Aspirin Regimen) 81 mg PO DAILY 90 days blood sugar diagnostic (PolybioticsTouch Verio test strips) Use to check blood sugar 4 times daily; FBS and before meals flash glucose scanning reader (Canary CalendarStyle Raine 2 [place]) TID testing flash glucose sensor (FreeStyle Raine 2 Sensor kit) tid testing furosemide 40 mg PO BID insulin glargine-yfgn (Semglee (insulin glargine-yfgn) Pen) 68 units (0.68 mL) subcut QPM insulin lispro (Humalog KwikPen (U-100) Insulin) 16 units max, sliding scale 3 times a day with meals subcutaneously ketoconazole 2% 1 appl topical BID lisinopril 5 mg PO DAILY metoprolol tartrate 25 mg PO BID 90 days pen needle, diabetic (Easy Comfort Pen [place]) As directed 3 times a day pen needle, diabetic (BD Ultra-Fine Mini Pen Needle) once a day pregabalin (Lyrica) 75 mg PO BID 90 days rosuvastatin 10 mg PO BEDTIME semaglutide 1 mg (0.75 mL) subcut QWEEK 30 days tramadol 50 mg PO DAILY PRN 15 days Tobacco use date assessed: 02/05/24 Dental Screening Dental Screen Date: 02/05/24 HPI 3 mon f/up general HPI Details History of Present Illness The patient is a 63-year-old female presenting with a vibration sensation in her chest and intermittent cramping in her extremities. She is followed by a commercial subcontractor for Heart Failure with preserved ejection fraction and regularly consults an hand packer for Diabetes Mellitus. The vibration sensation in her chest has been noted, and her commercial subcontractor has planned further evaluation with an echocardiogram and Holter monitor. Additionally, the patient experiences intermittent cramping in her extremities. She manages occasional hypoglycemic episodes by taking glucose PRN and reports significant weight loss in recent years as part of her condition management. The patient denies any ongoing dyspnea, chest discomfort, chest pain, headaches, or dizziness aside from the blurred vision she is addressing with her drilling field specialist. The patient is on a fluid restriction diet and is attentive to her electrolyte intake, particularly magnesium, which will be reassessed. Review of Systems - Cardiovascular: Reports vibration sensation in chest; Denies chest pain, chest discomfort, or dyspnea. - Endocrine: Reports diabetes management with past episodes of hypoglycemia. - Eyes: Reports known blurred vision, managed by an drilling field specialist. - Neurological: Denies headaches, dizziness. - Musculoskeletal: Reports intermittent cramping in extremities. Plan I will work in conjunction with her commercial subcontractor to review the echocardiogram and Holter monitor findings to address the vibration sensation in her chest. Ensuring appropriate management of her cardiac condition is vital. Concerning the diabetes management and intermittent extremity cramping, I will reassess her magnesium levels and ensure proper diabetes control to prevent hypoglycemia. It is important that she adheres to her fluid restriction guidelines while maintaining adequate electrolyte intake. Discussion Notes During our discussion, I advised the patient on the ongoing evaluation of her cardiac symptoms, with an emphasis on the importance of completing the echocardiogram and Holter monitor tests ordered by her commercial subcontractor. We discussed her current management of diabetes and the need to carefully monitor her glucose levels and address any electrolyte imbalances, particularly magnesium, which may contribute to her extremity cramping. The patient acknowledged the importance of fluid management and diabetes oversight by adhering to her prescribed regimens. We reviewed the potential need for further interventions should the current evaluations suggest additional treatment adjustments. Patient Instructions - Continue to monitor blood glucose levels and take glucose PRN as directed to manage any hypoglycemic episodes. - Adhere to the planned echocardiogram and Holter monitor evaluations as scheduled by the commercial subcontractor. - Maintain fluid restriction as advised, ensuring adequate electrolyte intake. - Report any new or worsening symptoms, particularly chest pain, persistent cramping, or significant blood glucose irregularities. [facility] Medical History Grade II diastolic dysfunction Diabetic retinopathy Leg wound, right Arthralgia Justin's thyroiditis Ventral hernia Aortic valve stenosis Essential hypertension Essential hypertension Type 2 diabetes mellitus without complications Morbid obesity Other specific joint derangements of unspecified hip, not elsewhere classified Derangement of both knee joints Type 2 diabetes mellitus with other diabetic kidney complication Surgical History S/P cardiac cath History of cholecystectomy Previous section Hx of left knee surgery H/O: hysterectomy Family History Mother Ovarian cancer Father Bladder cancer Social History Household Members Other:: 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 Richard Chatterjee, Clarice Lyons, Rohit Ferrell and colleagues, with an educational ren from [employer]. Physical exam (Primary Care) Tobacco/Smoking Status: Tobacco use Status Tobacco use date assessed 02/05/24 06/03/24 07:12 Patient Tobacco Use Status Never used Tobacco 06/03/24 07:12 e-Cigarette/Vaping Use Never Used 06/03/24 07:12 Thrive Assessment: Date of Thrive Assessment Date Thrive assessed 02/05/24 06/03/24 07:12 Telehealth Telehealth Telehealth Platform: Placeling Location of provider rendering services: practice address Location of patient: address on file Patient Identification confirmed using: Name, : Yes Telehealth method: video Patient verbally consented to billing insurance company: Yes Patient informed of any privacy concerns related to visit: Yes Minutes spent on Phone/Video with Pt.: 15 Coding Level of Care Code Tele Est Pt Level 3 (17336) Diagnoses Leg cramps R25.2 (HFpEF) heart failure with preserved ejection fraction I50.30 Diabetes E11.9 Assessment & Plan Assessment & Plan (1) Leg cramps: Code(s): R25.2 - Cramp and spasm Category: Medical (2) (HFpEF) heart failure with preserved ejection fraction: Code(s): I50.30 - Unspecified diastolic (congestive) heart failure Category: Medical (3) Diabetes: Code(s): E11.9 - Type 2 diabetes mellitus without complications Category: Medical Plan . Orders: Orders Complete Blood Count Auto Diff Today I50.30 - Unspecified diastolic (congestive) heart failure, R25.2 - Cramp and spasm Comprehensive Albert. Panel Fast Today I50.30 - Unspecified diastolic (congestive) heart failure, R25.2 - Cramp and spasm TSH reflex Free T4 Today I50.30 - Unspecified diastolic (congestive) heart failure, R25.2 - Cramp and spasm UA CC w/rflx Micro + Cult Today I50.30 - Unspecified diastolic (congestive) heart failure, R25.2 - Cramp and spasm Lipid Panel Today I50.30 - Unspecified diastolic (congestive) heart failure, R25.2 - Cramp and spasm Vitamin B12 and Folate Today I50.30 - Unspecified diastolic (congestive) heart failure, R25.2 - Cramp and spasm Magnesium Today I50.30 - Unspecified diastolic (congestive) heart failure, R25.2 - Cramp and spasm Vitamin B6 Today I50.30 - Unspecified diastolic (congestive) heart failure, R25.2 - Cramp and spasm Medications: New lisinopril 5 mg PO DAILY 90 tabs 1RF
== END 2024-10-14 09:02 | disposition home or self-care (01) ==
LOC: HO.HMCC 07:26
PROVIDERS: PCP Nurse Practitioner Family; Visit Provider Nurse Practitioner Family
DX: R25.2 Cramp and spasm (principal); I50.30 Unspecified diastolic (congestive) heart failure; E11.9 Type 2 diabetes mellitus without complications

== ENCOUNTER → 2024-10-14 07:25 | Outpatient (BNVA) | payer MEDICARE, OTHER, SELFPAY | PROVIDERS: PCP Nurse Practitioner Family; Visit Provider Nurse Practitioner Family ==

== ENCOUNTER 2024-12-27 07:47 | Outpatient (AMB) | payer MEDICARE, OTHER, SELFPAY ==
--- OUTSIDE RECORDS SUMMARY | 2024-12-27 07:50 | XMS_ITS | Clinical Summary ---
Author Organization [facility] Address [address] [place] [address] Care Team Providers Care Carpenter General Name Role Phone Da Campos Primary Care Provider [phone] Allergies No known active allergies Medications Medication Sig Dispensed Refills Start Date End Date Status furosemide (LASIX) 40 MG tablet Take 40 mg by mouth daily. 0 Active rosuvastatin (CRESTOR) tablet 10 mg Take 10 mg by mouth daily. 0 Active insulin glargine (LANTUS) injection 100 units/mL Inject 65 Units under the skin every morning. 0 Active insulin regular (HumuLIN R,NovoLIN R) injection 100 units/mL Inject 5 Units under the skin 3 (three) times a day before meals. 0 Active aspirin 81 MG chewable tablet Chew 1 tablet (81 mg total) by mouth daily. 30 tablet 2 05/01/2022 Active metoprolol tartrate (LOPRESSOR) 25 MG tablet Take 1 tablet (25 mg total) by mouth 2 (two) times a day. 60 tablet 3 04/30/2022 Active oxyCODONE (ROXICODONE) 5 MG immediate release tablet Take 1 tablet (5 mg total) by mouth every 8 (eight) hours as needed. 30 tablet 0 04/30/2022 Active Active Problems Problem Noted Date Diagnosed Date Aortic stenosis, severe 04/25/2022 S/P AVR (aortic valve replacement) 04/25/2022 Stage 3 chronic kidney disease 04/25/2022 Aortic stenosis 04/19/2022 Chronic diastolic CHF (congestive heart failure) 04/19/2022 Diabetes mellitus, type II 04/19/2022 Hyperlipidemia 04/19/2022 Hypertension 04/19/2022 Lymphedema of right lower extremity 04/19/2022 Sleep apnea, obstructive 04/19/2022 Family History Medical History Relation Name Comments Testicular cancer Brother No Sig Med Hx Daughter Bladder Cancer Father Hypertension Father Ovarian cancer Mother No Sig Med Hx Sister 1 No Sig Med Hx Sister 2 No Sig Med Hx Son Relation Name Status Comments Brother Daughter Alive Father Alive Mother Sister 1 Sister 2 Alive Son Alive Social History Tobacco Use Types Packs/Day Years Used Date Smoking Tobacco: Never Smokeless Tobacco: Never Tobacco Cessation:Counseling Given: No Alcohol Use Standard Drinks/Week Comments Not Currently 0 (1 standard drink = 0.6 oz pur e alcohol) rare Sex and Gender Information Value Date Recorded Sex Assigned at Female 03/24/2022 1:16 PM EDT Gender Identity Not on file Sexual Orientation Not on file Job Start Date Occupation Industry Not on file Not on file Not on file Last Filed Vital Signs Vital Sign Reading Time Taken Comments Blood Pressure 140/65 04/30/2022 9:28 AM EDT Pulse 82 04/30/2022 9:28 AM EDT Temperature 37 ??C (98.6 ??F) 04/30/2022 8:35 AM EDT Respiratory Rate 29 04/30/2022 9:28 AM EDT Oxygen Saturation 98% 04/30/2022 9:28 AM EDT Inhaled Oxygen Concentration - - Weight 144.7 kg (319 lb) 04/30/2022 5:00 AM EDT Height 160 cm (5' 3 ) 04/26/2022 6:00 AM EDT Body Mass Index 56.51 04/26/2022 6:00 AM EDT Plan of Treatment Health Maintenance Due Date Last Done Comments Hepatitis C Screening 1960 COVID-19 Vaccine (#1) 06/08/1961 Pneumococcal Vaccine (1 of 2 - PCV) 1966 Pneumococcal Vaccine (1 of 2 - PCV) 1966 Depression Screening 1972 BMI Counseling 1978 Preventative Health Evaluation 1978 DTap / Tdap / Td (1 - Tdap) 12/07/1979 Cervical Cancer Screening (P ap Smear) 1981 Colon Cancer Screening (Colonoscopy) 2005 Breast Cancer Screening (Mammogram) 2010 Shingrix-Zoster Vaccine (1 of 2) 2010 RSV Adult > 60+ Yrs or Pregn ant (1 - Risk 60-74 years 1-dose series) 2020 Influenza Vaccine (Season Ended) 2025 Hepatitis B Vaccines Aged Out No long er eligible based on patient's age to complete this topic RSV Ped < 20 months Aged Out No longe r eligible based on patient's age to complete this topic Medical Devices Implanted Type Area As400 Programmer Device Identifier Shelf Expiration Date Model / Serial / Lot Hemostat Absorb 2x14in Ster Surg Jn-Ethi [id number] - [id number] Implanted:Qt y: 2 on 04/25/2022 by Ollie Tang MD at [facility] and Med Hemostatic Agent N/A: Chest [facility] [employer] 12/14/20251950 / / [id number] Hemasorb 4gm 2x2gm Abyx-Manu [id number] - [id number] Implanted:Qt y: 1 on 04/25/2022 by Ollie Tang MD at [facility] and Med N/A: Chest [employer] 12/14/2024 OS-401 / / [id number] Valve Aortic Inspiris 23 23mm Edwa-Manu [id number] - [id number] Implanted:Qt y: 1 on 04/25/2022 by Ollie Tang MD at [facility] and Med N/A: Chest [employer] VIET 11/10/2025 [id number] / [id number] / Plate X Stry-Cran [id number] 80 - [id number] Implanted:Qt y: 2 on 04/25/2022 by Ollie Tang MD at [facility] and Med N/A: Chest CLIFF CRANIOMAXILLOFACIAL [id number] / / Plate Manubrium Stry-Cran [id number] 86 - [id number] Implanted:Qt y: 1 on 04/25/2022 by Ollie Tang MD at [facility] and Med N/A: Chest CLIFF CRANIOMAXILLOFACIAL [id number] / / Screw Sd Locking 2.3x14mm Stry-Cran [id number] - [id number] Implanted:Qt y: 20 on 04/25/2022 by Ollie Tang MD at [facility] and Med N/A: Chest CLIFF CRANIOMAXILLOFACIAL [id number] / / Screw St Locking 2.7x12mm Stry-Cran [id number] - [id number] Implanted:Qt y: 2 on 04/25/2022 by Ollie Tang MD at [facility] and Med N/A: Chest CLIFF CRANIOMAXILLOFACIAL [id number] / / Advance Directives For more information, please contact: [phone] Latest Code Status on File Code Status Date Activated Date Inactivated Comments Full Code 04/25/2022 5:55 AM 04/30/2022 7:55 PM Thi s code status was ascertained in the following way: discussion with patient. Care Teams Carpenter General Relationship Specialty Start Date End Date Da Campos [address] [facility] [place] [address] PCP - General Family Medicine 03/24/22
[2024-12-27 07:53] VITALS: BP 116/74; PULSE 81; O2SAT 97; BMI 46.6
--- NOTE | 2024-12-27 07:53 | A.OFFVIS_ITS ---
Vital Signs 12/27/24 07:53 Height 5 ft 3 in Weight 263 lb 4 oz BMI 46.6 BP 116/74 Blood Pressure Location Lt brachial Position Sitting Pulse 81 Pulse Source Pulse Oximeter Pulse Oximetry (%) 97 Oxygen Delivery Method Room Air Intake Visit Reasons: Follow up Intake Note: Patient presents follow up ARUNA. Last seen 08/2022. No compliance(machine does note transmit). Per [facility] she needs appointment to get supplies Accompanied by: Self / Same As Patient Allergies No Known Allergies Allergy (Verified 12/27/24 07:56) HPI Comments Details: 64 y/o female patient presents for follow up of ARUNA on BiPAP. Pt reports that she had a open heart surgery done in Apr 2024 and could not tolerate BiPAP during April. For compliance report: Pt needs to bring the SD card to [facility] every 2-3 months to download the compliance. Pt is on BiPAP 20/16 cmH2O and says she is compliant as she uses her macing daily at night. Compliance is requested from her Cpap company. Total days Usage and average usage hours 5 hours and 35 min. The press are leaks are residual AHI was 1.5. She reports excessive mouth dryness. Pt tried to increased humidifier setting but this was not helpful. Pt reports that she feels more relaxed with using BiPAP. She has T2DM and has to have eyes injections every 5 weeks for retinopathy. A1s is better managaed on monjarou 2.5mg weekly. CHF, managaged Dr. Mejia at [facility]. Aortic valve replacement in Jun. She denies headaches. She denies RLS, however she has numbness, and tingling in both her feet and when she takes tramadol, she is able to sleep comfortablly. She washes her mask, tubing and changes filters, and fills her reservoir with water as needed. We discussed using various masks and checking out all her resources on the cpap supply store. [email or web address] [email or web address] INCLUDE 234 BEDS AT THE [facility] Medical History Grade II diastolic dysfunction Diabetic retinopathy Leg wound, right Arthralgia Justin's thyroiditis Ventral hernia Aortic valve stenosis Essential hypertension Essential hypertension Type 2 diabetes mellitus without complications Morbid obesity Other specific joint derangements of unspecified hip, not elsewhere classified Derangement of both knee joints Type 2 diabetes mellitus with other diabetic kidney complication Surgical History S/P cardiac cath History of cholecystectomy Previous section Hx of left knee surgery H/O: hysterectomy Family History Mother Ovarian cancer Father Bladder cancer Social History Household Members Other:: 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 Housing: House Alcohol intake: never Patient Tobacco Use Status: Never used Tobacco e-Cigarette/Vaping Use: Never Used Second Hand Smoke Exposure: No Current occupational status: employed and retired Current occupation: Retired/disability Cognitive needs: No Hearing needs: No Vision needs: No Review of Systems ENT Reports Normal hearing present Neuro Reports Normal hearing present Physical Exam Vital Signs: Last Vital Signs Pulse 81 12/27/24 07:53 BP 116/74 12/27/24 07:53 Pulse Ox 97 12/27/24 07:53 Oxygen Delivery Method Room Air 12/27/24 07:53 BMI result Body Mass Index 46.6 Const General: cooperative Nutritional Appearance: obese Orientation/consciousness: patient oriented x3 Eyes Pupils: Equal, round and reactive pupils present Resp Effort & Inspection: normal respiratory effort and able to speak in complete sentences Neuro General: patient oriented x3 and moves all extremities Cranial nerves: Yes Facial sensation intact/muscles of mastication intact, Yes Equal, round and reactive pupils present, Yes Normal accommodation reflex present, Yes Normal facial strength present, Yes Midline tongue present, Yes Normal hearing present, Yes Ability to bilaterally rotate head present and Yes Ability to bilaterally elevate shoulders present Cognition (Neuro): normal cognition Motor exam (neuro): 5/5 motor strength present throughout and Normal motor muscle tone present throughout Psych Appearance: grossly normal Affect: normal affect Thought process: Normal thought process present Thought content: Normal thought content present Results Reviewed Results Reviewed: Compliance results pending per patient: SD card needs to be brought into her [employer] company. 09/2024-12/2024 Assessment & Plan Assessment & Plan (1) ARUNA treated with BiPAP: Code(s): G47.33 - Obstructive sleep apnea (adult) (pediatric) Category: Medical (2) Anemia: Code(s): D64.9 - Anemia, unspecified Category: Medical Qualifiers: Anemia type: unspecified type Qualified Code(s): D64.9 - Anemia, unspecified (3) Cramp of both lower extremities: Code(s): R25.2 - Cramp and spasm Category: Medical Plan Continue to use BiPAP 20/91unF2G as patient experiences good clinical effects. Stressed compliance, use BiPAP nightly and more than 4 hours as patient has CHF and Aortic valve replaced Jun 2022. Patient Education on Cpap supply store for masks and resources as needed. Fatigue r/o with labs RLS? will r/o after labs are completed. Dinah requests a copy of her note to be faxed to [phone], however awaiting compliance Orders: Orders Vitamin D 25-OH Total 12/27/24 D64.9 - Anemia, unspecified, R25.2 - Cramp and spasm Methylmalonic Acid 12/27/24 D64.9 - Anemia, unspecified, G47.9 - Sleep disorder, unspecified, R25.2 - Cramp and spasm, R53.83 - Other fatigue Homocysteine 12/27/24 D64.9 - Anemia, unspecified, G47.9 - Sleep disorder, unspecified, R25.2 - Cramp and spasm, R53.83 - Other fatigue Ferritin 12/27/24 D64.9 - Anemia, unspecified, R25.2 - Cramp and spasm Vitamin B12 and Folate 12/27/24 D64.9 - Anemia, unspecified, R25.2 - Cramp and spasm Patient Instructions: Sleep Hygiene provided: set a scheduled bedtime and wake time to help regulate the circadian rhythm and balance the release of pituitary hormones. Sleep in a dark room, temperatures below 68 degrees, and no devices n bed. Limit caffeinated products 6 hours prior to bed, and limit fluids 2-4 hours prior to bed. Gentle night yoga, diffusing essential oils, and playing soft music can be relaxing. Coding Level of Care Code Est Pt Level 4 (58303) Diagnoses ARUNA treated with BiPAP G47.33 Anemia, unspecified type D64.9 Anemia type: unspecified type Cramp of both lower extremities R25.2 Time Spent (min) 25 Comment improving
== END 2024-12-27 08:43 | disposition home or self-care (01) ==
LOC: HO.HSMS 07:48
PROVIDERS: PCP Nurse Practitioner Family; Visit Provider Physician Assistant Medical
DX: G47.33 Obstructive sleep apnea (adult) (pediatric) (principal); D64.9 Anemia, unspecified; R25.2 Cramp and spasm
CPT/HCPCS: 99214

== ENCOUNTER → 2024-12-27 07:47 | Outpatient (BNVA) | payer MEDICARE, OTHER, SELFPAY | PROVIDERS: PCP Nurse Practitioner Family; Visit Provider Physician Assistant Medical | DX: G47.33 Obstructive sleep apnea (adult) (pediatric) (principal); D64.9 Anemia, unspecified; R25.2 Cramp and spasm | CPT/HCPCS: 99212 ==

== ENCOUNTER 2025-04-03 13:42 | Outpatient (AMB) | payer MEDICARE, OTHER, SELFPAY ==
[2025-04-03 13:44] VITALS: BP 132/74; PULSE 73; O2SAT 97
--- NOTE | 2025-04-03 13:44 | MHC.PC.OV ---
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: No Allergies No Known Allergies Allergy (Verified 04/03/25 13:45) Tobacco use date assessed: 04/03/25 Fall risk assessment: No Falls in past year Last assessed Fall Risk: 04/03/25 Dental Screening Dental Screen Date: 04/03/25 Did you have a dental visit in the last 12 months?: Yes Did you have a dental problem in the last 6 months where you did not have access to dental care?: No Was dental information given to patient?: Patient has dentist HPI HPI Comments History of Present Illness Details History of Present Illness - The patient is a 64-year-old female presenting with left-front neck pain and swelling for the last 2 months. . - The swelling is associated with pain, particularly when lying on the left side or making quick movements. No injury. - The patient has tried Tylenol and biofreeze for relief, but these have not been effective. - There is no pain with swallowing, difficulty swallowing or shortness of breath - The pain is constant but varies in intensity. - The patient has a history of aortic stenosis and underwent aortic valve replacement surgery three years ago. Carotids do not appear to have been evaluated at that point. - The patient has stage 2 chronic kidney disease and has been advised against using NSAIDs due to renal concerns. Physical Exam General: Cooperative, healthy appearing, comfortable, no acute distress and well developed Orientation: Patient oriented x3 Limitations: No limitations Head: Normal to inspection Ears: Hearing grossly normal bilaterally Nose: Normal External nose present Face and sinus: Normal facial exam Eyes: Appearance normal, both eyes and all related structures Neck: no TTP or edema noted on left anterior neck, full ROM, faint carotid bruit auscultated L>R, no LAD of entire neck or supraclavicular lymph nodes bilaterally. Respiratory: Normal respiratory effort and able to speak in complete sentences. Skin: No rashes or lesions noted Neuro: Patient oriented x3 Extremities: Normal to inspection Review of Systems - Neck: Reports swelling and pain, denies dysphagia or dyspnea - Musculoskeletal: Reports pain with certain movements, denies relief with Tylenol or biofreeze All systems reviewed and are unremarkable except as noted in HPI [facility] Medical History Grade II diastolic dysfunction Diabetic retinopathy Leg wound, right Arthralgia Justin's thyroiditis Ventral hernia Aortic valve stenosis Essential hypertension Essential hypertension Type 2 diabetes mellitus without complications Morbid obesity Other specific joint derangements of unspecified hip, not elsewhere classified Derangement of both knee joints Type 2 diabetes mellitus with other diabetic kidney complication Surgical History S/P cardiac cath History of cholecystectomy Previous section Hx of left knee surgery H/O: hysterectomy Family History Mother Ovarian cancer Father Bladder cancer Social History 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 1. Little interest or pleasure in doing things: not at all 2. Feeling down, depressed, or hopeless: not at all 3. Trouble falling or staying asleep, or sleeping too much: not at all 4. Feeling tired or having little energy: not at all 5. Poor appetite or overeating: not at all 6. Feeling bad about yourself - or that you are a failure or have let yourself or your family down: not at all 7. Trouble concentrating on things, such as reading the newspaper or watching television: not at all 8. Moving or speaking so slowly that other people could have noticed. Or the opposite - being so fidgety or restless that you have been moving around a lot more than usual: not at all 9. Thoughts that you would be better off or of hurting yourself in some way: not at all Total score: 0 Depression Screening Interpretation: Negative Depression Screening Done: Yes 19492 - PHQ-9 Billing: Yes Source: Developed by Drs. Richard Chatterjee, Rohit Urena and colleagues, with an educational ren from [employer]. Thrive Questionnaire Date Thrive assessed: 04/03/25 I am a: Patient What is your living situation today?: I have a steady place to live Within the past 12 months, did the food you bought not last and you didn't have the money to get more?: Never true Within the past 12 months, did you worry whether your food would run out before you got money to buy more?: Never true Do you have trouble paying for medicines?: No Do you have trouble getting transportation to medical appointments?: No Do you have trouble paying your heating and electricity bill?: No Do you have trouble taking care of your child, family member or friend?: No Do you have trouble with day-to-day activities such as bathing, preparing meals, shopping, managing finances, etc.?: No Are you currently unemployed and looking for a job?: No Are you interested in more education?: No Please select the resources that you would like help with: None Currently or been in a relationship where the following occur: No concerns reported THRIVE Score: 0 AUDIT C Alcohol Use Questionnaire (AUDIT-C) 1. How often do you have a drink containing alcohol?: Never 3. How often do you have six or more drinks on one occasion?: Never Total Score: 0 Score Reviewed/Action Taken: Yes JILLIAN-7 AMB Questionnaire JILLIAN-7 Date JILLIAN - 7 assessed: 04/03/25 Feeling nervous, anxious, or on edge: 0 = Not at all Not being able to stop or control worryin = Not at all Worrying too much about different things: 0 = Not at all Trouble relaxin = Not at all Being so restless that it is hard to sit still: 0 = Not at all Becoming easily annoyed or irritable: 0 = Not at all Feeling afraid as if something awful might happen: 0 = Not at all Total JILLIAN-7 score (0-4 normal; 5-9 mild; 10-14 moderate; 15-21 severe): 0 Source: Developed by Clarice Rooney Kurt Kroenke and colleagues, with an educational ren from [employer]. JILLIAN-7 Assessment Billing JILLIAN-7 Assessment Tool: JILLIAN-7 Assessment 13954 Physical exam (Primary Care) Vital Signs: Last Vital Signs Pulse 73 04/03/25 13:44 BP 132/74 04/03/25 13:44 Pulse Ox 97 04/03/25 13:44 Oxygen Delivery Method Room Air 04/03/25 13:44 Tobacco/Smoking Status: Tobacco use Status Tobacco use date assessed 04/03/25 04/03/25 13:45 Patient Tobacco Use Status Never used Tobacco 04/03/25 13:45 e-Cigarette/Vaping Use Never Used 04/03/25 13:45 PHQ-9: PHQ-9 Score PHQ-9: Total score 0 04/03/25 14:54 Depression Screening Interpretation: Negative Thrive Assessment: Date of Thrive Assessment Date Thrive assessed 04/03/25 04/03/25 13:45 Currently or been in a relationship where the following occur: No concerns reported Coding Level of Care Code Est Pt Level 4 (28382) Diagnoses Anterior neck pain M54.2 Bilateral carotid bruits R09.89 Additional Codes JILLIAN-7 Assessment Billing - JILLIAN-7 Assessment Tool: JILLIAN-7 Assessment 98269 ([id number]) PHQ-9 - 71700 - PHQ-9 Billing: Yes ([id number]) Assessment & Plan Assessment & Plan (1) Anterior neck pain: Code(s): M54.2 - Cervicalgia Category: Medical Plan: Patient was informed and verbally consented to the use of an ambient scribe for clinic note documentation during this visit. Neck Swelling - VSS, pt well appearing and PE remarkable for L>R carotid bruits upon auscultation. - A CTA of neck is planned to evaluate the carotid arteries and other neck structures. - The patient is advised to monitor for any worsening symptoms such as difficulty swallowing or breathing and to seek emergency care if these occur. 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 Mejia has been cc'd on CT scan results. (2) Bilateral carotid bruits: Code(s): R09.89 - Other specified symptoms and signs involving the circulatory and respiratory systems Category: Medical Plan: as above Orders: Orders CT angio neck Today I35.0 - Nonrheumatic aortic (valve) stenosis, R09.89 - Other specified symptoms and signs involving the circulatory and respiratory systems, Z95.2 - Presence of prosthetic heart valve
--- OUTSIDE RECORDS SUMMARY | 2025-04-03 15:40 | XMS_ITS | Clinical Summary ---
Author Organization [facility] Address [address] [place] [address] Care Team Providers Care Fiber Optics Supervisor Name Role Phone Da Campos Primary Care Provider [phone] Allergies No known active allergies Medications Medication [...] 82 04/30/2022 9:28 AM EDT Temperature 37 C (98.6 F) 04/30/2022 8:35 AM EDT Respiratory Rate 29 [...] 60-74 years 1-dose series) 2020 Influenza Vaccine (#1) 2025 Hepatitis B Vaccines Aged Out No long er eligible based on patient's age to complete this topic RSV Ped < 20 months Aged Out No longe r eligible based on patient's age to complete this topic Medical Devices Implanted Type Area Pump Operator Byproducts Device Identifier Shelf Expiration Date Model / Serial / Lot Hemostat Absorb 2x14in Ster Surg Jn-Ethi [id number] - [id number] Implanted:Qt y: 2 on 04/25/2022 by Ollie Tang MD at [facility] and Med Hemostatic Agent N/A: Chest [facility] [employer] 12/14/20251950 / / [id number] Hemasorb 4gm 2x2gm Abyx-Manu [id number] - [id number] Implanted:Qt y: 1 on 04/25/2022 by Ollie Tang MD at [facility] and Med N/A: Chest [employer] 12/14/2024 OS-401 / / [id number] Valve Aortic Inspiris 23 23mm Edwa-Manu [id number] - [id number] Implanted:Qt y: 1 on 04/25/2022 by Ollie Tang MD at [facility] and Med N/A: Chest [employer] VI[employer] 11/10/2025 [id number] / [id number] / Plate X Stry-Cran [id number] 80 - [id number] Implanted:Qt y: 2 on 04/25/2022 by Ollie Tang MD at [facility] and Med N/A: Chest CLIFF CRANIOMAXILLOFACIAL [id number] / / Plate Manubrium Stry-Cran [id number] 86 - [id number] Implanted:Qt y: 1 on 04/25/2022 by Ollie Tang MD at [facility] and Med N/A: Chest CLIFF CRANIOMAXILLOFACIAL [id number] / / Screw Sd Locking 2.3x14mm Stry-Cran [id number] - [id number] Implanted:Qt y: 20 on 04/25/2022 by Ollie Tang MD at [facility] and Med N/A: Chest [employer] CRANIOM[employer] [id number] / / Screw St Locking 2.7x12mm Stry-Cran [id number] 05 - [id number] Implanted:Qt y: 2 on 04/25/2022 by Ollie Tang MD at [facility] and Med N/A: Chest CLIFF CRANIOMAXILLOFACIAL [id number] / / Advance Directives For more information, please contact: [phone] Latest Code Status on File Code Status Date Activated Date Inactivated Comments Full Code 04/25/2022 5:55 AM 04/30/2022 7:55 PM Thi s code status was ascertained in the following way: discussion with patient. Care Teams Fiber Optics Supervisor Relationship Specialty Start Date End Date Da Campos [address] [facility] [address] PCP - General Family Medicine 03/24/22
--- OUTSIDE RECORDS SUMMARY | 2025-04-03 15:40 | XMS_ITS ---
Author Name [facility] Organization Unknown Care Team Organization Name Specialty Phone Email Start Date End Da te [facility] 04/19/2022 04/19/2022
--- OUTSIDE RECORDS SUMMARY | 2025-04-03 15:40 | XMS_ITS | Clinical Summary ---
Author Organization [facility] Address [address] [place] [address] Phone Care Team Providers Care Business Analysis Analyst Name Role Phone Da Campos NP Primary Care Provider [phone] Allergies No known active allergies Medications Aspirin Low Dose 81 MG chewable tablet CHEW 1 TABLET BY MOUTH EVERY DAY 3 Active furosemide (LASIX) 20 MG tablet TAKE 3 TABLETS ORALLY DAILY FOR 30 DAYS 3 Active insulin glargine (LANTUS) 100 UNIT/ML injection Inject 65 Units under the skin every morning Active HumaLOG KWIKPEN 100 UNIT/ML solution pen-injector 3 Active metoprolol tartrate 25 MG tablet Take 25 mg by mouth 3 Active pregabalin (LYRICA) 75 MG capsule Take 75 mg by mouth 3 Active rosuvastatin (CRESTOR) 10 MG tablet 3 Active Ozempic, 0.25 or 0.5 MG/DOSE, 2 MG/3ML solution pen-injector Inject 2 mg under the skin 1 (one) time per week 3 Active amoxicillin (AMOXIL) 500 MG capsule Take by mouth Active ketoconazole (NIZORAL) 2 % shampoo Apply topically 2 (two) times a week Apply to damp skin, lather, leave on 5 minutes, and rinse Active lisinopril 5 MG tablet Take 5 mg by mouth 1 (one) time each day Active Active Problems Problem Noted Date Diagnosed Date Cholecystectomy 03/23/2023 03/23/2023 Chronic ulcer of lower extremity 03/23/2023 03/23/2023 Morbid obesity 03/23/2023 03/23/2023 Total abdominal hysterectomy with bilateral salpingo-oophorectomy 03/23/2023 03/23/2023 History of aortic valve replacement 04/25/2022 03/23/2023 Stage 3 chronic kidney disease 04/25/2022 0 03/23/2023 Chronic diastolic heart failure 04/19/2022 03/23/2023 Hyperlipidemia 04/19/2022 03/23/2023 Hypertension 04/19/2022 03/23/2023 Lymphedema of right lower limb 04/19/2022 0 03/23/2023 Severe aortic valve stenosis 04/19/202201/2023 Obstructive sleep apnea syndrome 04/19/2022 03/23/2023 Type 2 diabetes mellitus 04/19/2022 023 History of cardiac catheterization 02/11/2022 03/23/2023 Overview (03/23/2023): [place] [facility] with PADDY - indications: Justin's thyroiditis 02/11/2022 03/23/20 23 Hypoxia 10/13/2021 03/23/2023 Overview (03/23/2023): D/C[place] [facility] [place] Congestive heart failure 10/13/2021 023 Overview (03/23/2023): new onset - D/C'd [place] [facility] [place] Last Assessment & Plan: Volume status acceptable. Continue current dose of Lasix. She will call the office for weight gain and more than 3 pounds in 1 day or 5 pounds in 1 week. Low-salt diet encouraged. Dyspnea on exertion 10/13/2021 03/23/2023 Overview (03/23/2023): D[place] [facility] [place] Last Assessment & Plan: The patient continues with ongoing fatigue and shortness of breath. She has a mildly abnormal stress test, but given her multiple risk factors, Dr. Trujillo recommends a left heart cardiac catheterization to evaluate for obstructive coronary artery disease. Unfortunately, this is confounded by the recent finding of bilateral axillary lymphadenopathy, and her PCPs referral for surgical evaluation. Given her symptoms and mildly abnormal stress test, we should define her coronary anatomy prior to any potential surgical evaluation beyond a biopsy. However, should we find any coronary artery disease that would require PCI, she would need to remain on DAPT without interruption which may delay a biopsy. The patient is going to discuss cardiac catheterization with her . We discussed the procedure in detail, answering her questions to the best of my ability. We discussed the risk benefits and alternatives. She is going to let me know in the next couple of days how she would like to proceed. In the meantime, continue ongoing risk factor modification for potential coronary artery disease including beta-carlee and statin. Family History Medical History Relation Comments Cancer Father Cancer Mother Relation Status Comments Father Mother Social History Tobacco Use Types Packs/Day Years Used Date Smoking Tobacco: Never Smokeless Tobacco: Never Alcohol Use Standard Drinks/Week Comments Not Currently 0 (1 standard drink = 0.6 oz pur e alcohol) Comments Unknown Sex and Gender Information Value Date Recorded Sex Assigned at Not on file Legal Sex Female 10:47 AM EDT Gender Identity Not on file Sexual Orientation Not on file Last Filed Vital Signs Vital Sign Reading Time Taken Comments Blood Pressure 114/62 03/23/2023 3:49 PM EDT Pulse 78 08/22/2023 3:41 PM EST Temperature - - Respiratory Rate - - Oxygen Saturation 98% 03/23/2023 3:49 PM EDT Inhaled Oxygen Concentration - - Weight 135 kg (298 lb) 08/22/2023 3:41 PM EST Height - - Body Mass Index - - Plan of Treatment Health Maintenance Due Date Last Done Comments Breast Cancer Screening 1960 Pneumococcal Vaccine: 50+ Ye ars (1 of 2 - PCV) 12/07/1979 Colorectal Cancer Screening: Annual FOBT 2009 Colorectal Cancer Screening: Colonoscopy 2009 Colorectal Cancer Screening: Sigmoidoscopy 2009 Diabetes: Hemoglobin A1C 03/01/2023 Diabetes: Ophthalmology Exam 03/01/2023 Diabetes: Pedal Pulse Checked 03/01/2023 Diabetes: Sensory Foot Exam 03/01/2023 Diabetes: Visual Foot Exam 03/01/2023 Influenza Vaccine (#1) 2025 Hepatitis B Vaccine Aged Out No longe r eligible based on patient's age to complete this topic Insurance [facility] Care Teams Business Analysis Analyst Relationship Specialty Start Date End Date Da Campos NP [address] [place] [address] PCP - General Nurse Practitioner 02/24/23
--- OUTSIDE RECORDS SUMMARY | 2025-04-03 15:40 | XMS_ITS | Clinical Summary ---
Author Organization [facility] Address [address] [place] [address] Care Team Providers Care Assistant Manager Quality Management Name Role Phone Unavailable Primary Care Provider Unavailabl e Medications metoprolol succinate (TOPROL-XL) 50 mg 24 hr tablet TAKE 1 TABLET BY MOUTH EVERY DAY IN THE EVENING 90 tablet 1 08/15/2024 Active Surgical History Surgery Date Site/Laterality Comments HYSTERECTOMY PROCEDURE: HISTORICAL HYSTERECTOMY KNEE SURGERY Left PROCEDURE: HISTORICAL KNEE SURGERY SECTION PROCEDURE: HISTORICAL DELIVERY CHOLECYSTECTOMY PROCEDURE: LAPAROSCOPY, CHOLECYSTECTOMY Medical History Medical History Date Comments Morbid obesity ([facility], [facility] V28) DX:Morbid obesity ([facility]) DM2 (diabetes mellitus, type 2) ([facility] V24, [facility] V28) DX:DM2 (diabetes mellitus, t ype 2) ([facility]); COMMENT: insulin dependent Vitamin D deficiency DX:Vitamin D deficiency OCHOA (dyspnea on exertion) DX:OCHOA (dyspnea on exertion); COMMENT: D/C'd [place] [facility] [place] 09/17/21 Hypoxia DX:Hypoxia; COMM ENT: D/C'd from [facility] on 09/17/21 Arthralgia DX:Arthralgia Derangement of both knee joints DX:Derangement of both knee joints Leg wound, right DX:Leg wound, r ight Other specific joint derange ments of unspecified ankle, not elsewhere classified DX:Other specific joint dera ngements of unspecified ankle, not elsewhere classified Ventral hernia DX:Ventral herni a Lymphedema DX:Lymphedema; C OMMENT: Chronic RLE Chronic pain DX:Chronic pain Family History Medical History Relation Name Comments No Known Problems Brother 64 Bladder Cancer Father 86 Ovarian cancer Mother 72 No Known Problems Sister 1 65 Relation Name Status Comments Brother 64 Alive Father 86 Alive Mother 72 Sister 1 65 Alive Sister 2 56 Alive Social History Tobacco Use Types Packs/Day Years Used Date Smoking Tobacco: Never Smokeless Tobacco: Never Alcohol Use Standard Drinks/Week Comments Never 0 (1 standard drink = 0.6 oz pur e alcohol) Comments Unknown Sex and Gender Information Value Date Recorded Sex Assigned at Not on file Legal Sex Female 11:13 AM EST Gender Identity Not on file Sexual Orientation Not on file Obstetrics History Last Filed Vital Signs Vital Sign Reading Time Taken Comments Blood Pressure 131/68 04/19/2023 3:32 PM EDT Sitting Other (Comment) Pulse 91 04/19/2023 3:32 PM EDT Temperature - - Respiratory Rate - - Oxygen Saturation - - Inhaled Oxygen Concentration - - Weight 140 kg (308 lb) 04/19/2023 3:32 PM EDT Height 160 cm (5' 3 ) 04/19/2023 3:32 PM EDT Body Mass Index 54.56 04/19/2023 3:32 PM EDT Plan of Treatment Health Maintenance Due Date Last Done Comments Breast Cancer Screening 1960 Diabetes: Annual Foot Exam 1970 Diabetes: Annual Retina Eye Exam 1970 DTaP,Tdap,and Td Vaccines (1 - Tdap) 12/07/1979 Cervical Cancer Screening: Pap Smear 1981 Pneumococcal Vaccine: 50+ Years (1 of 1 - PCV) 2010 Zoster Vaccines (1 of 2) 2010 RSV Immunization Adult Patients (1 - Risk 60-74 years 1-dose series) 2020 Cholesterol Screening (Lipid Panel) 06/21/2022 Colorectal Cancer Screening: Colonoscopy 06/21/2022 HIV Screening 06/21/2022 Hepatitis C Screening 06/21/2022 Social Influencers of Health Screening 06/21/2022 Diabetes: Annual Urine Albumin-Creatinine Ratio (uACR) 07/02/2022 Diabetes: Blood Sugar Control Test (HGBA1C) 10/18/2022 04/19/2022, 04/19/2022 Diabetes: Annual GFR (Glomerular Filtration Rate) 04/30/2023 04/30/2022, 04/30/2022, 04/29/2022, Additional history exists Hypertension/CHF/CAD Annual BMP Blood Test 04/30/2023 04/30/2022, 04/30/2022, 04/29/2022, Additional history exists Depression Screening 07/17/2024 COVID-19 Vaccine ( season) 2025 Influenza Vaccine (#1) 2025 HIB Vaccines Aged Out No longer eligi ble based on patient's age to complete this topic HPV Vaccines Aged Out No longer eligi ble based on patient's age to complete this topic Hepatitis A Vaccines Aged Out No long er eligible based on patient's age to complete this topic Hepatitis B Vaccines Aged Out No long er eligible based on patient's age to complete this topic IPV Vaccines Aged Out No longer eligi ble based on patient's age to complete this topic MMR Vaccines Aged Out No longer eligi ble based on patient's age to complete this topic Meningococcal ACWY Vaccine Aged Out N o longer eligible based on patient's age to complete this topic Meningococcal B Vaccine Aged Out No l onger eligible based on patient's age to complete this topic RSV Immunization Patients Under 20 months Aged Out No longer eligible based on patient's age to complete this topic Varicella Vaccines Aged Out No longer eligible based on patient's age to complete this topic Medical Devices Implanted Type Area Document Specialist Device Identifier Shelf Expiration Date Model / Serial / Lot Hemostat Absorb 2x14in Ster [facility] Implanted:Qt y: 2 on 04/25/2022 by Ollie Tang MD Implants N/A: Chest [facility] [employer]ON [employer] 12/14/20251950 / / [id number] Hemasorb 4gm 2x2gm Abyx-Manu [id number] Implanted:Qt y: 1 on 04/25/2022 by Ollie Tang MD N/A: Chest [employer] 12/14/2024 OS-401 / / [id number] Valve Aortic Inspiris 23 23mm Edwa-Manu [id number] - [id number] Implanted:Qt y: 1 on 04/25/2022 by Ollie Tang MD N/A: Chest [employer] VIET 11/10/2025 [id number] / [id number] / Plate X Stry-[facility] [id number] Implanted:Qt y: 2 on 04/25/2022 by Ollie Tang MD N/A: Chest [employer] [id number] / / Plate Manubrium Stry-Cran [id number] Implanted:Qt y: 1 on 04/25/2022 by Ollie Tang MD N/A: Chest [employer] [id number] / / Screw Sd Locking 2.3x14mm Stry-Cran [id number] Implanted:Qt y: 20 on 04/25/2022 by Ollie Tang MD N/A: Chest [employer] [id number] / / Screw St Locking 2.7x12mm Stry-Cran [id number] Implanted:Qt y: 2 on 04/25/2022 by Ollie Tang MD N/A: Chest [employer] [id number] / /
== END 2025-04-03 14:15 | disposition home or self-care (01) ==
LOC: HO.HMCC 13:42
PROVIDERS: PCP Nurse Practitioner Family; Visit Provider Physician Assistant
DX: M54.2 Cervicalgia (principal); R09.89 Other specified symptoms and signs involving the circulatory and respiratory systems

== ENCOUNTER → 2025-04-03 13:42 | Outpatient (BNVA) | payer MEDICARE, OTHER, SELFPAY | PROVIDERS: PCP Nurse Practitioner Family; Visit Provider Physician Assistant | DX: M54.2 Cervicalgia (principal); R09.89 Other specified symptoms and signs involving the circulatory and respiratory systems; I35.0 Nonrheumatic aortic (valve) stenosis; Z95.2 Presence of prosthetic heart valve | CPT/HCPCS: 96127; 99212 ==

== ENCOUNTER 2025-04-22 08:59 | Outpatient (REF) | payer MEDICARE, OTHER, SELFPAY ==
--- OUTSIDE RECORDS SUMMARY | 2024-12-03 09:00 | XMS_ITS ---
Author Organization [facility] Address [address] [place] [phone] Care Team Providers Care Computer Repair Instructor Name Role Phone Da Esparza Primary Care Provider Unav ailable Megha Pena Unavailable [phone] Zhao Encounters Encounter Location Date Provider Diagnosis [address] [address] 12/03/2024 Megha Pena Plan Of Treatment Next Appt Details Provider Name:Megha katz, 05/09/2025 09:00:00 AM, [address] [place] [address], [phone], Progress Notes * Ale MORROWDOB:[birth year] (64 yo F)Acc No.[id number]:12/03/2024 Progress Note Patient: Lilly Ale WALKER Provider: Mohini Pena DPM :1960 A ge:63 Y S ex:Female Date:12/03/2024 Address:[address] [place], [place] [id number] Pcp:JENNIFER Dickey Subjective: * Chief Complaints: * [...] DPM Date: 0 12/03/2024 Generated for Meenakshi allison/Jenise/Scott on: 09:49 AM EDT
--- NOTE | ~2025-04-22 | CT_ITS ---
EXAMINATION: CT ANGIOGRAM HEAD AND NECK CLINICAL INFORMATION: Dizziness, rule out stroke. COMPARISON: None available. TECHNIQUE: Noncontrast axial imaging of the head was performed. This was followed by test bolus sequences neck intravenous bolus administration 70mL of Omnipaque 350. Helical imaging was performed in the axial plane from the aortic arch to the mid skull. The data was processed at the laboratory technologist's workstation for generation of MIP sequences. Angled MIPs and volume rendered reformatted images were also generated at an offline 3D workstation. Stenoses are assessed in accordance with NASCET criteria unless otherwise indicated. This CT examination was performed using dose optimization techniques as appropriate, variously including the following: *Automated exposure control *Adjustment of mA and/or kV according to patient size (this includes techniques or standardized protocols for targeted exams where dose is matched to indication/reason for exam; i.e. extremities or head) *Use of iterative reconstruction technique FINDINGS: NECK CTA: -AORTIC ARCH: Normal in caliber. Three-vessel branching pattern. Mild atherosclerotic calcification is present. -GREAT VESSEL ORIGINS: Widely patent. Focal atherosclerotic calcification is present at the origin of the left subclavian artery No hemodynamically significant stenosis. -RIGHT COMMON CAROTID ARTERY: Normal in course and caliber to the level of the bifurcation. -CERVICAL RIGHT INTERNAL CAROTID ARTERY: Normal opacification without focal stenosis or occlusion. Mild atherosclerotic calcifications present at the carotid bulb and origin of the internal carotid artery -LEFT COMMON CAROTID ARTERY: Normal in course and caliber to the level of the bifurcation. -CERVICAL LEFT INTERNAL CAROTID ARTERY: Mild calcific atherosclerotic disease of the carotid bulb and proximal internal carotid artery without hemodynamically significant stenosis -CERVICAL RIGHT VERTEBRAL ARTERY: Codominant. Normal in course and caliber into the skull base. Multifocal atherosclerotic ossification is present 1 cm from the origin. -CERVICAL LEFT VERTEBRAL ARTERY: Codominant. Normal in course and caliber into the skull base. OTHER, SOFT TISSUES: -No lymphadenopathy or mass. No abnormal fluid collection or soft tissue swelling. -Normal thyroid. -Imaged superior mediastinal structures normal. -Imaged lung apices clear. CT/CT angio neck IMPRESSION: CTA NECK: Mild multifocal atherosclerotic ossifications are are evident without a hemodynamically significant stenosis. Electronically signed by: Maurice Newman MD 04/22/2025 10:24 AM EDT
--- OUTSIDE RECORDS SUMMARY | 2025-04-22 09:50 | XMS_ITS | Clinical Summary ---
Author Organization [facility] Address [address] [place] [address] Care Team Providers Care Sport Psychologist Name Role Phone Unavailable Primary Care Provider [...] History Medical History Date Comments Morbid obesity ([facility] V24, [facility] V28) DX:Morbid obesity ([facility]) DM2 (diabetes mellitus, type 2) ([facility] V24, [facility] V28) DX:DM2 (diabetes mellitus, t ype 2) ([facility]); COMMENT: insulin dependent Vitamin D deficiency DX:Vitamin D deficiency OCHOA (dyspnea on exertion) DX:OCHOA (dyspnea on exertion); COMMENT: [place] [facility] [place] Hypoxia DX:Hypoxia; COMM ENT: [place] [facility] [place] Arthralgia DX:Arthralgia Derangement of both [...] Last Done Comments Breast Cancer Screening 1960 Colorectal Cancer Screening: Colonoscopy 1960 Diabetes: Annual Foot Exam 1970 Diabetes: Annual Retina Eye Exam 1970 DTaP,Tdap,and Td Vaccines (1 - Tdap) 12/07/1979 Cervical Cancer Screening: Pap Smear 1981 Pneumococcal Vaccine: 50+ Years (1 of 1 - PCV) 2010 Zoster Vaccines (1 of 2) 2010 RSV Immunization Adult Patients (1 - Risk 60-74 years 1-dose series) 2020 Cholesterol Screening (Lipid Panel) 06/21/2022 HIV Screening 06/21/2022 Hepatitis C Screening [...] this topic Medical Devices Implanted Type Area Taxation Inspector Device Identifier Shelf Expiration Date Model / Serial / Lot Hemostat Absorb 2x14in Ster [facility]i Implanted:Qt y: 2 on 04/25/2022 by Ollie Tang MD Implants N/A: Chest [facility] [employer] INC 12/14/20251950 / / [id number] Hemasorb 4gm 2x2gm Abyx-Manu [id number] Implanted:Qt y: 1 on 04/25/2022 by Ollie Tang MD N/A: Chest [employer] 12/14/2024 OS-401 / / [id number] Valve Aortic Inspiris 23 23mm Edwa-Manu [id number] - [id number] Implanted:Qt y: 1 on 04/25/2022 by Ollie Tang MD N/A: Chest [employer] VIET 11/10/2025 [id number] / [id number] / Plate X Stry-[facility] [id number] Implanted:Qt y: 2 on 04/25/2022 by Ollie Tang MD N/A: Chest [employer] [id number] / / Plate Manubrium Stry-Cran [id number] Implanted:Qt y: 1 on 04/25/2022 by Ollie Tang MD N/A: Chest [employer] [id number] / / Screw Sd Locking 2.3x14mm Stry-Cran [id number] Implanted:Qt y: 20 on 04/25/2022 by Ollie Tang MD N/A: Chest [employer] [id number] / / Screw St Locking 2.7x12mm Stry-Cran [id number] Implanted:Qt y: 2 on 04/25/2022 by Ollie Tang MD N/A: Chest [employer] [id number] / /
--- OUTSIDE RECORDS SUMMARY | 2025-04-22 09:50 | XMS_ITS | Patient Health Record ---
Author Organization [facility] Address [address] [place] [address] Care Team Providers Care Test Technician Name Role Phone Da Esparza Primary Care Provider Unav ailable Megha Pena Unavailable [phone] Allergies No Known Allergies Results Component Value Reference Range Notes HEMOGLOBIN A1C (GLYCOHEMOGLO BIN) Reviewed date:06/18/2024 12:56:32 PM Interpretation: Performing Lab: Notes/Report: TOTAL HEMOGLOBIN (HGBA1C) 6.0 HEMOGLOBIN A1C (GLYCOHEMOGLO BIN) Reviewed date:09/04/2024 01:08:15 PM Interpretation: Performing Lab: Notes/Report: HEMOGLOBIN A1C % (HH) 6.0 HEMOGLOBIN A1C (GLYCOHEMOGLO BIN) Reviewed date:02/05/2025 01:57:04 PM Interpretation: Performing Lab: Notes/Report: HEMOGLOBIN A1C % (HH) 5.6 Reason For Referral No Information Medications Medication SIG (Take, Route, Frequency, Duration) Notes Start Date End Date Status BD Pen Needle Mini U/F 31G X 5 MM USE DIRECTED FOUR TIMES DAILY; Duration: 75 Days Active Lisinopril 5 MG Oral; Duration: 90 Days Active Semglee (yfgn) 100 UNIT/ML INJECT 56 UNITS SUBCUTANEOUS DAILY Subcutaneous; Duration: 87 Days Active Extra Depth Orthopedic Shoes (1 Pair) with Customized Heat Molded Multidensity Innersoles (3 Pair) as directed Dx: NIDDM/Polyneuropathy (E11.42), Hammertoe Foot Deformity (M20.41,M20.42), Preulcerative Skin Lesion(s) (L85.1 Active traMADol HCl 50 MG TAKE 1 TABLET BY MASOOD TH EVERY DAY NEEDED FOR PAIN FOR 15 DAYS Oral; Duration: 7 Days Not-Taking Ammonium Lactate 12 % 1 application Exte rnally to affected areas of dry skin to feet except for between the toes Twice a day; Duration: 30 days Not-Takin g Ozempic (2 MG/DOSE) 8 MG/3ML Subcutaneous; Duration: 84 Days Not-Taking Mounjaro 7.5 MG/0.5ML as directed Subcutaneous Active Metoprolol Succinate ER 50 MG Oral; Duration: 90 Days Acti ve Furosemide 20 MG Oral; Duration: 90 Days Active Immunizations Vaccine Route Administration Date Status Comme nts Influenza Unknown 02/05/2025 Refused Social History Tobacco Use: Social History Observation Description Date Details (start date - stop date) Never Smoker NA - NA Tobacco use other than smoking: Question Answer Notes Are you an other tobacco user? No Tobacco Control (Standard) Question Answer Notes Tobacco use: Nonsmoker Additional Findings: Tobacco non-user Cu rrent nonsmoker, but past smoking history unknown AUDIT-C (Standard) Question Answer Notes Did you have a drink containing alcohol in the p ast year? No Points 0 Interpretation Negative Problems Problem Type SNOMED Code ICD Code Onset Dates Problem Status W/U Status Risk Notes Problem Acquired hammer toe of right foot (1137590552637842 ) Other hammer toe(s) (acquired), right foot (M20.41) Active confirmed Problem Acquired hammer toe of left foot (5722276333558024 ) Other hammer toe(s) (acquired), left foot (M20.42) Active confirmed Problem Polyneuropathy due to type 2 diabetes mellitus (010866758) Type 2 diabetes mellitus with diabetic polyneuropathy (E11.42) Active confirmed Vital Signs Blood pressure diastolic 70 mm Hg 02/05/2025 Height 5ft3in in 02/05/2025 Blood pressure systolic 102 mm Hg 02/05/2025 Weight 260 lbs 02/05/2025 BMI 46.05 kg/m2 02/05/2025 Encounters Encounter Location Date Provider Diagnosis [facility] [place] [address] [place] [address] 06/18/2024 Megha Pena Type 2 diabetes mellitus with diabetic polyneuropathy E11.42 ; Puncture wound with foreign body, left foot, initial encounter S91.342A ; Other hammer toe(s) (acquired), right foot M20.41 ; Other hammer toe(s) (acquired), left foot M20.42 and Foot cramps R25.[address] [address] 09/04/2024 Megha Pena Type 2 diabetes mellitus with diabetic polyneuropathy E11.42 ; Xerosis of skin L85.3 ; Other hammer toe(s) (acquired), right foot M20.41 and Other hammer toe(s) (acquired), left foot M20.[address] [address] 02/05/2025 Megha Pena Type 2 diabetes mellitus with diabetic polyneuropathy E11.42 ; Other hammer toe(s) (acquired), right foot M20.41 and Other hammer toe(s) (acquired), left foot M20.[address] [address] 07/29/2024 Megha Pena Assessments Encounter Date Diagnosis (ICD Code) Assessment Notes Treatment Notes Treatment Clinical Notes Section Notes 06/18/2024 Puncture wound with foreign body, left foot, initial encounter (ICD-10 - S91.342A) 06/18/2024 Type 2 diabetes mellitus with diabetic polyneuropathy (ICD-10 - E11.42) 09/04/2024 Type 2 diabetes mellitus with diabetic polyneuropathy (ICD-10 - E11.42) 09/04/2024 Xerosis of skin (ICD-10 - L85.3) 02/05/2025 Other hammer toe(s) (acquired), right foot (ICD-10 - M20.41) Patient Educated with: DIABETIC FOOT CARE INSTRUCTIONS. pdf (DIABETIC FOOT CARE INSTRUCTIONS. pdf) 02/05/2025 Type 2 diabetes mellitus with diabetic polyneuropathy (ICD-10 - E11.42) 09/04/2024 Other hammer toe(s) (acquired), right foot (ICD-10 - M20.41) Patient Educated with: DIABETIC FOOT CARE INSTRUCTIONS. pdf (DIABETIC FOOT CARE INSTRUCTIONS. pdf) 02/05/2025 Other hammer toe(s) (acquired), left foot (ICD-10 - M20.42) 06/18/2024 Other hammer toe(s) (acquired), right foot (ICD-10 - M20.41) Patient Educated with: DIABETIC FOOT CARE INSTRUCTIONS. pdf (DIABETIC FOOT CARE INSTRUCTIONS. pdf) 06/18/2024 Other hammer toe(s) (acquired), left foot (ICD-10 - M20.42) 09/04/2024 Other hammer toe(s) (acquired), left foot (ICD-10 - M20.42) 06/18/2024 Foot cramps (ICD-10 - R25.2) Plan Of Treatment Next Appt Details Provider Name:Megha katz, 05/09/2025 09:00:00 AM, [address] [place] [address], [phone], Insurance Providers Payer Name Payer Address Payer Phone Subscriber Number Group Number Insured Name Patient Relationship to Insured Coverage Start Date Coverage End Date Medicare National Govt Svcs [employer] [address] [place] [address] [phone] [id number] Ale Cameron Self - patient is the insured [address] [place] [address] Medicare Supplement [address] [place] [phone] [id number] Ale Cameron Self - patient is the insured Medical (General) History Medical History History ICD Code Anemia Arthritis Diabetic Heart disease High Blood Pressure Kidney disease Numbness (Neuropathy) Replacement Heart Valves Retinopathy Surgical History Surgery Date(Month/Year) hysterectomy 1998 knee surgery (Multiple) AUR 04/2022 cholecystectomy
--- OUTSIDE RECORDS SUMMARY | 2025-04-22 09:50 | XMS_ITS | Clinical Summary ---
Author Organization [facility] Address [address] [place] [address] Phone Care Team Providers Care Outside Parts Sales Name Role Phone Da Campos NP Primary Care Provider [phone] Allergies No known active allergies Medications Aspirin [...] catheterization 02/11/2022 03/23/2023 Overview (03/23/2023): Done at [facility] on 01/21/22 with PADDY - indications: Justin's thyroiditis 02/11/2022 03/23/20 23 Hypoxia 10/13/2021 03/23/2023 Overview (03/23/2023): D/C'd from [facility] on 09/17/21 Congestive heart failure 10/13/2021 023 Overview (03/23/2023): new onset - D/C'd from [facility] on 09/17/21 Last Assessment & Plan: Volume status acceptable. Continue current dose of Lasix. She will call the office for weight gain and more than 3 pounds in 1 day or 5 pounds in 1 week. Low-salt diet encouraged. Dyspnea on exertion 10/13/2021 03/23/2023 Overview (03/23/2023): D/C'd from [facility] on 09/17/21 Last Assessment & Plan: The [...] patient's age to complete this topic Insurance [facility] Care Teams Outside Parts Sales Relationship Specialty Start Date End Date Da Campos NP [address] [place] [address] PCP - General Nurse Practitioner 02/24/23
[2025-04-22] MEDS: iohexoL 350 MG/ML 100 ML INFUS..BTL IV (10:12)
== END 2025-04-22 09:00 | disposition home or self-care (01) ==
LOC: HO.CT 08:59
PROVIDERS: PCP Nurse Practitioner Family; Visit Provider Physician Assistant
DX: I35.0 Nonrheumatic aortic (valve) stenosis (principal); R09.89 Other specified symptoms and signs involving the circulatory and respiratory systems; Z95.2 Presence of prosthetic heart valve
CPT/HCPCS: 70498; Q9967

== ENCOUNTER → 2025-04-22 09:00 | Outpatient (BNV) | payer MEDICARE, OTHER, SELFPAY | PROVIDERS: PCP Nurse Practitioner Family; Visit Provider Radiology Diagnostic Radiology | DX: R09.89 Other specified symptoms and signs involving the circulatory and respiratory systems (principal); R42 Dizziness and giddiness | CPT/HCPCS: 70498 ==

== ENCOUNTER 2025-07-16 10:17 | Outpatient (AMB) | payer MEDICARE, OTHER, SELFPAY ==
--- OUTSIDE RECORDS SUMMARY | 2024-12-03 08:00 | XMS_ITS ---
Author Organization [facility] Address [address] [place] [id number] Care Team Providers Care Coach Operator Name Role Phone Da Esparza Primary Care Provider Unav ailable Megha Pena Unavailable [phone] Zhao Encounters Encounter Location Date Provider Diagnosis [address] [phone] 12/03/2024 Megha Pena Plan Of Treatment Next Appt Details Provider Name:Megha katz, 08/22/2025 09:15:00 AM, [address] [place] [address], [phone], Progress Notes * Ale MORROWDOB:[birth year] (64 yo F)Acc No.[id number]:12/03/2024 Progress Note Patient: Lilly Ale WALKER Provider: Mohini Pena DPM :1960 A ge:63 Y S ex:Female Date:12/03/2024 Address:[address] [place], [place] [id number] Pcp:JENNIFER Dickey Subjective: * Chief Complaints: * [address] Zhao[address] * Medical History: Objective: * Vitals: Assessment: Plan: * Treatment: * Images: * The named appointment provid er may or may not be the originator of this progress note, and it is not deemed complete until electronically signed by the appointment provider. Sign off status: Pending * Provider: Mohini Pena DPM Date: 0 12/03/2024 Generated for Meenakshi Renteria/Scott on: 11:23 AM EST
--- OUTSIDE RECORDS SUMMARY | 2025-05-09 03:45 | XMS_ITS ---
Author Organization [facility] Address [address] [place] [address] Care Team Providers Care Business Objects Developer Name Role Phone Andres RODRIGUEZ, Da Primary Care Provider Unav ailable Megha Pena [phone] Encounters Encounter Location Date Provider Diagnosis [address] [address] 05/09/2025 Megha Pena Plan Of Treatment Next Appt Details Provider Name:Megha katz, 08/22/2025 09:15:00 AM, [address] [place] [address], [phone], Progress Notes * Ale MORROWDOB:[birth year] (64 yo F)Acc No.[id number]:05/09/2025 Progress Note Patient: Lilly Ale WALKER Provider: Mohini Pena DPM :1960 A ge:64 Y S ex:Female Date:05/09/2025 Address:[address] [place], [place] [id number] Pcp:JENNIFER Dickey Subjective: * Chief Complaints: * * Medical History: Objective: * Vitals: Assessment: Plan: * Treatment: * Images: * The named appointment provid er may or may not be the originator of this progress note, and it is not deemed complete until electronically signed by the appointment provider. Sign off status: Pending * Provider: Mohini Pena, TAB Date: 1 Generated for Meenakshi allison/Jenise/Scott on: 11:22 AM EST
[2025-07-16 10:20] VITALS: BP 124/78; PULSE 73; O2SAT 97; BMI 44.7
--- NOTE | 2025-07-16 10:20 | A.OFFVIS_ITS ---
Vital Signs 07/16/25 10:20 Height 5 ft 3 in Weight 252 lb 2 oz BMI 44.7 BP 124/78 Blood Pressure Location Lt radial Position Sitting Pulse 73 Pulse Source Pulse Oximeter Pulse Oximetry (%) 97 Oxygen Delivery Method Room Air Intake Visit Reasons: 3 months F/U Intake Note: Patient presents follow up ARUNA. Compliance in chart(86/90days, >=4hrs-77%, Average Usage-4hr 37, IPAP-20cm, EPAP-16cm, Med Leaks-1.5, AHI-0.6) Accompanied by: Self / Same As Patient Allergies No Known Allergies Allergy (Verified 07/16/25 10:26) HPI Comments Details: 64 y/o female patient presents for follow up of ARUNA on BiPAP Therapy. PMH Apr 2024 she had an Aortic Valve replacement and could not tolerate BiPAP during this period. For compliance report pt brings the SD card to [facility] every 2-3 months to download the compliance data. Compliance Report Reviewed with pt. 03/2025 - 06/2025 Total avg use is 86/90 days with 77% >4 hours, avg daily use 4 hours 37min The press are Bipap 20/16 leaks are 1.5/hr and AHI is 0.6/hr. Her machine is the Air Curve 10V auto She washes her mask, tubing and changes filters, and fills her reservoir with water as needed. She reports excessive mouth dryness and we discussed using a humidifier in the room to increase the moisture in the air and xylimelt tabs in order to increase moisture in oral mucosa. She feels more relaxed and refreshed when using her BiPAP machine, she likes the pressures will have a leak occasionally and thinks she needs a smaller mask, she currently has the smallest mask available. We discussed trying cpap liners to fill the gap and have better seals. She has T2DM A1c is 5.9 and it is well managed. She has VEGF injections q 4 weeks for retinopathy, and sees Dr. Desai, [facility]. Her weight is chirag managed on Monjarou now 15mg subq weekly and averaging loss of 1lb / month. She uses a cane to ambulate short distances and uses her wheel chair most of the time. She continues to do chair exercise for up to 22 min daily. She denies headaches, vertigo, gait and balance difficulties. Denies Parasomnias and abnormal sleep behaviors. She has severe cramping of r.>l foot and this cause her to wake up multiple times a night, stretches her feet. She tried gabapentin, lyrica, and magnesium discontinued due to s/e of grogginess and magnesium was elevated to 2.5 on labs. [facility] Medical History Grade II diastolic dysfunction Diabetic retinopathy Leg wound, right Arthralgia Justin's thyroiditis Ventral hernia Aortic valve stenosis Essential hypertension Essential hypertension Type 2 diabetes mellitus without complications Morbid obesity Other specific joint derangements of unspecified hip, not elsewhere classified Derangement of both knee joints Type 2 diabetes mellitus with other diabetic kidney complication Surgical History S/P cardiac cath History of cholecystectomy Previous section Hx of left knee surgery H/O: hysterectomy Family History Mother Ovarian cancer Father Bladder cancer Social History Household Members Other:: 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 Housing: House Alcohol intake: never Patient Tobacco Use Status: Never used Tobacco e-Cigarette/Vaping Use: Never Used Second Hand Smoke Exposure: No Current occupational status: employed and retired Current occupation: Retired/disability Cognitive needs: No Hearing needs: No Vision needs: No Review of Systems ENT Reports Normal hearing present Neuro Reports Normal hearing present Physical Exam Vital Signs: Last Vital Signs Pulse 73 07/16/25 10:20 BP 124/78 07/16/25 10:20 Pulse Ox 97 07/16/25 10:20 Oxygen Delivery Method Room Air 07/16/25 10:20 BMI result Body Mass Index 44.7 Const General: cooperative Nutritional Appearance: obese Orientation/consciousness: patient oriented x3 Eyes Pupils: Equal, round and reactive pupils present Resp Effort & Inspection: normal respiratory effort and able to speak in complete sentences Neuro Other: stooped posture, walks with a cane wide based leaning gait. FFM General: patient oriented x3 and moves all extremities Cranial nerves: Yes Facial sensation intact/muscles of mastication intact, Yes Equal, round and reactive pupils present, Yes Normal accommodation reflex present, Yes Normal facial strength present, Yes Midline tongue present, Yes Normal hearing present, Yes Ability to bilaterally rotate head present and Yes Ability to bilaterally elevate shoulders present Cognition (Neuro): normal cognition Motor exam (neuro): 5/5 motor strength present throughout and Normal motor muscle tone present throughout Psych Appearance: grossly normal Affect: normal affect Thought process: Normal thought process present Thought content: Normal thought content present Results Reviewed Results Reviewed: Compliance Report Reviewed with pt. 03/2025 - 06/2025 Total avg use is 86/90 days with 77% >4 hours, avg daily use 4 hours 37min The press are Bipap 20/16 leaks are 1.5/hr and AHI is 0.6/hr. Her machine is the Air Zoomingo 10V auto Labs December 2024 reviewed with pt. Assessment & Plan Assessment & Plan (1) ARUNA treated with BiPAP: Code(s): G47.33 - Obstructive sleep apnea (adult) (pediatric) Category: Medical (2) Anemia: Code(s): D64.9 - Anemia, unspecified Category: Medical Qualifiers: Anemia type: unspecified type Qualified Code(s): D64.9 - Anemia, unspecified (3) Cramp of both lower extremities: Code(s): R25.2 - Cramp and spasm Category: Medical (4) RLS (restless legs syndrome): Code(s): G25.81 - Restless legs syndrome Category: Medical (5) Paresthesias: Code(s): R20.2 - Paresthesia of skin Category: Medical Plan ARUNA on BIPAP therapy continue to use BiPAP 20/20exD6V and >4hours a night as patient experiences good clinical effects. Stressed compliance, use BiPAP nightly and more than 4 hours as patient has CHF and Aortic valve replaced Jun 2022. Patient Education on Cpap supply store for masks and resources as needed, she has the smallest mask available from her DME. Dry mouth xylimelt tabs and increasing moisture in the air with a humidifier in the bedroom. RLS with bilateral severe cramps B12 low normal B6 low normal/ Vit D is low, magnesium elevated, homocystein elevated. TSH and Ferritin is normal. Start b12 1000mcg daily at bedtime sublingually, and Vit D daily 1000units at bedtime. May apply magnilife ointment topically to legs, will write her for NIDRA tonic motor device, pt has tried gabapentin, lyrica and both were ineffective. F/U in 6 monhts Medications: New [nidra tonic motor device] As directed 2 ea 0RF rls G25.81 - Restless legs syndrome mecobalamin (vitamin B12) place tablet under tongue and allow to dissolve for at least30 secs before swallowing 1,000 mcg sublingual BEDTIME 90 tabs 0RF 3 months Patient Instructions: Sleep Hygiene provided: set a scheduled bedtime and wake time to help regulate the circadian rhythm and balance the release of pituitary hormones. Sleep in a dark room, temperatures below 68 degrees, and no devices n bed. Limit caffeinated products 6 hours prior to bed, and limit fluids 2-4 hours prior to bed. Gentle night yoga, diffusing essential oils, and playing soft music can be relaxing. Coding Level of Care Code Est Pt Level 4 (41135) Diagnoses ARUNA treated with BiPAP G47.33 Anemia, unspecified type D64.9 Anemia type: unspecified type Cramp of both lower extremities R25.2 RLS (restless legs syndrome) G25.81 Paresthesias R20.2
--- OUTSIDE RECORDS SUMMARY | 2025-07-16 11:23 | XMS_ITS | Clinical Summary ---
Author Organization [facility] Address [address] [place] [address] Phone Care Team Providers Care Cartographic Technician Name Role Phone Da Campos NP Primary Care Provider [phone] Allergies No known active allergies Medications Aspirin [...] catheterization 02/11/2022 03/23/2023 Overview (03/23/2023): Done at [facility] [place] with PADDY - indications: Justin's thyroiditis 02/11/2022 03/23/20 23 Hypoxia 10/13/2021 03/23/2023 Overview (03/23/2023): D/C'd from [facility] [place] 09/17/21 Congestive heart failure 10/13/2021 023 Overview (03/23/2023): new onset - D/C'd from [facility] on 09/17/21 Last Assessment & Plan: Volume status acceptable. Continue current dose of Lasix. She will call the office for weight gain and more than 3 pounds in 1 day or 5 pounds in 1 week. Low-salt diet encouraged. Dyspnea on exertion 10/13/2021 03/23/2023 Overview (03/23/2023): D/C'd from [facility] on 09/17/21 Last Assessment & Plan: The [...] patient's age to complete this topic Insurance [facility] Care Teams Cartographic Technician Relationship Specialty Start Date End Date Da Campos NP [address] [place] [address] PCP - General Nurse Practitioner 02/24/23
--- OUTSIDE RECORDS SUMMARY | 2025-07-16 11:23 | XMS_ITS | Clinical Summary ---
Author Organization [facility] Address [address] [place] [address] Care Team Providers Care Dulser Name Role Phone Unavailable Primary Care Provider [...] History Medical History Date Comments Morbid obesity ([facility] V24, [facility] V28) DX:Morbid obesity ([facility]) DM2 (diabetes mellitus, type 2) ([facility] V24, [facility] V28) DX:DM2 (diabetes mellitus, t ype 2) ([facility]); COMMENT: insulin dependent Vitamin D deficiency DX:Vitamin D deficiency OCHOA (dyspnea on exertion) DX:OCHOA (dyspnea on exertion); COMMENT: D/C'd from [facility] on 09/17/21 Hypoxia DX:Hypoxia; COMM ENT: D/C'd from [facility] on 09/17/21 Arthralgia DX:Arthralgia Derangement of both [...] Years (1 of 1 - PCV) 2010 RSV Immunization Adult Patients (1 - Risk 50-74 years 1-dose series) 2010 Zoster Vaccines (1 of 2) 2010 Cholesterol Screening (Lipid Panel) 06/21/2022 HIV Screening [...] this topic Medical Devices Implanted Type Area Professor Of Architecture Device Identifier Shelf Expiration Date Model / Serial / Lot Hemostat Absorb 2x14in Ster Surg [facility] Implanted:Qt y: 2 on 04/25/2022 by Ollie Tang MD Implants N/A: Chest [facility] [employer] 12/14/20251950 / / [id number] Hemasorb 4gm 2x2gm Abyx-Manu [id number] Implanted:Qt y: 1 on 04/25/2022 by Ollie Tang MD N/A: Chest [employer] 12/14/2024 OS-401 / / [id number] Valve Aortic Inspiris 23 23mm Edwa-Manu [id number] - [id number] Implanted:Qt y: 1 on 04/25/2022 by Ollie Tang MD N/A: Chest [employer] VIET 11/10/2025 [id number] / [id number] / Plate X Stry-[facility] [id number] Implanted:Qt y: 2 on 04/25/2022 by Ollie Tang MD N/A: Chest [employer] [id number] / / Plate Manubrium Stry-Cran [id number] Implanted:Qt y: 1 on 04/25/2022 by Ollie Tnag MD N/A: Chest [employer] [id number] / / Screw Sd Locking 2.3x14mm Stry-Cran [id number] Implanted:Qt y: 20 on 04/25/2022 by Ollie Tang MD N/A: Chest [employer] [id number] / / Screw St Locking 2.7x12mm Stry-Cran [id number] Implanted:Qt y: 2 on 04/25/2022 by Ollie Tang MD N/A: Chest [employer]ANI[employer]AX[employer]ACIAL [id number] / /
--- OUTSIDE RECORDS SUMMARY | 2025-07-16 11:23 | XMS_ITS | Patient Health Record ---
Author Organization [facility] Address [address] [place] [address] Care Team Providers Care Head Boys Tennis Coach Name Role Phone Da Esparza Primary Care Provider Unav ailable Megha Pena Unavailable [phone] Allergies No Known Allergies Results Component Value Reference Range Notes HEMOGLOBIN A1C (GLYCOHEMOGLO BIN) Reviewed date:02/05/2025 01:57:04 PM Interpretation: Performing Lab: Notes/Report: HEMOGLOBIN A1C % (HH) 5.6 HEMOGLOBIN A1C (GLYCOHEMOGLO BIN) Reviewed date:05/16/2025 09:27:44 AM Interpretation: Performing Lab: Notes/Report: HEMOGLOBIN A1C % (HH) 5.3 Reason For Referral No Information Medications Medication SIG (Take, Route, Frequency, Duration) Notes Start Date End Date Status Furosemide 20 MG Oral; Duration: 90 Days Active Metoprolol Succinate ER 25 MG 1 tablet Orally Once a day; Duration: 90 days Active Mounjaro 7.5 MG/0.5ML as directed Subcutaneous Active Ammonium Lactate 12 % 1 application Exte rnally to affected areas of dry skin to feet except for between the toes Twice a day; Duration: 30 days Not-Takin g traMADol HCl 50 MG TAKE 1 TABLET BY EVERY DAY NEEDED FOR PAIN FOR 15 DAYS Oral; Duration: 7 Days Not-Taking Extra Depth Orthopedic Shoes (1 Pair) with Customized Heat Molded Multidensity Innersoles (3 Pair) as directed Dx: NIDDM/Polyneuropathy (E11.42), Hammertoe Foot Deformity (M20.41,M20.42), Preulcerative Skin Lesion(s) (L85.1 Active Ozempic (2 MG/DOSE) 8 MG/3ML Subcutaneous; Duration: 84 Days Not-Taking BD Pen Needle Mini U/F 31G X 5 MM USE DIRECTED FOUR TIMES DAILY; Duration: 75 Days Active Semglee (yfgn) 100 UNIT/ML INJECT 56 UNITS SUBCUTANEOUS DAILY Subcutaneous; Duration: 87 Days Active Lisinopril 5 MG Oral; Duration: 90 Days Active Immunizations [...] Problem Acquired hammer toe of right foot (3762998633657130 ) Other hammer toe(s) (acquired), right foot (M20.41) Active confirmed Problem Acquired hammer toe of left foot (3773261557262077 ) Other hammer toe(s) (acquired), left foot (M20.42) Active confirmed Problem Polyneuropathy due to type 2 diabetes mellitus (453280759) Type 2 diabetes mellitus with diabetic polyneuropathy (E11.42) Active confirmed Vital Signs Blood pressure diastolic 70 mm Hg 05/16/2025 Height 5ft3in in 05/16/2025 Blood pressure systolic 105 mm Hg 05/16/2025 Weight 245 lbs 05/16/2025 BMI 43.4 kg/m2 05/16/2025 Encounters Encounter [facility] Date [facility] [address] [facility] Megha Pena Type 2 diabetes mellitus with diabetic polyneuropathy E11.42 ; Xerosis of skin L85.3 ; Other hammer toe(s) (acquired), right foot M20.41 and Other hammer toe(s) (acquired), left foot M20.42 [facility] [place] [address] [place] [address] 02/05/2025 Megha Pena Type 2 diabetes mellitus with diabetic polyneuropathy E11.42 ; Other hammer toe(s) (acquired), right foot M20.41 and Other hammer toe(s) (acquired), left foot M20.[address] [address] 05/16/2025 Megha Pena Type 2 diabetes mellitus with diabetic polyneuropathy E11.42 [facility] [address] 07/29/2024 [facility] [address] [facility] [address] [place] [address] 04/30/2025 Megha Pena Assessments Encounter Date Diagnosis (ICD Code) Assessment Notes Treatment Notes Treatment Clinical Notes Section Notes 09/04/2024 Type 2 diabetes mellitus with diabetic polyneuropathy (ICD-10 - E11.42) 09/04/2024 Xerosis of skin (ICD-10 - L85.3) 02/05/2025 Other hammer toe(s) (acquired), right foot (ICD-10 - M20.41) Patient Educated with: DIABETIC FOOT CARE INSTRUCTIONS. pdf (DIABETIC FOOT CARE INSTRUCTIONS. pdf) 02/05/2025 Type 2 diabetes mellitus with diabetic polyneuropathy (ICD-10 - E11.42) 05/16/2025 Type 2 diabetes mellitus with diabetic polyneuropathy (ICD-10 - E11.42) 09/04/2024 Other hammer toe(s) (acquired), right foot (ICD-10 - M20.41) Patient Educated with: DIABETIC FOOT CARE INSTRUCTIONS. pdf (DIABETIC FOOT CARE INSTRUCTIONS. pdf) 02/05/2025 Other hammer toe(s) (acquired), left foot (ICD-10 - M20.42) 09/04/2024 Other hammer toe(s) (acquired), left foot (ICD-10 - M20.42) 05/16/2025 Other Plan Of Treatment Next Appt Details Provider Name:Megha katz, 08/22/2025 09:15:00 AM, [address] [place] [address], [phone], Insurance Providers Payer Name Payer Address Payer Phone Subscriber Number Group Number Insured Name Patient Relationship to Insured Coverage Start Date Coverage End Date Medicare National Govt Svcs Inc [address] [place] [phone] [id number] Ale Cameron Self - patient is the insured 4 [employer] Senior Plan Medicare Supplement [address] [place] [phone] [id number] Ale Cameron Self - patient is the insured Medical (General) History Medical History History ICD Code Anemia Arthritis Diabetic Heart disease High Blood Pressure Kidney disease Numbness (Neuropathy) Replacement Heart Valves Retinopathy Surgical History Surgery Date(Month/Year) hysterectomy 1998 knee surgery (Multiple) AUR 04/2022 cholecystectomy
--- OUTSIDE RECORDS SUMMARY | 2025-07-16 11:23 | XMS_ITS | Clinical Summary ---
Author Organization [facility] Prior to 12/14/24 Address [address] [place] [address] Care Team Providers Care Plant Maintenance Worker Name Role Phone Dinhmarcela Da Esquivel Primary Care Provider [phone] Allergies No known active allergies Medications Medication [...] this topic Medical Devices Implanted Type Area Site Project Manager Device Identifier Shelf Expiration Date Model / Serial / Lot Hemostat Absorb 2x14in Ster Surg [place]-Ethi [id number] - [id number] Implanted:Qt y: 2 on 04/25/2022 by Ollie Tang [facility] Hemostatic Agent N/A: Chest [facility] [employer] 12/14/20251950 / / [id number] Hemasorb 4gm 2x2gm Abyx-Manu [id number] - [id number] Implanted:Qt y: 1 on 04/25/2022 by Ollie Tang MD [place] [facility] N/A: Chest [employer] 12/14/2024 OS-401 / / [id number] Valve Aortic Inspiris 23 23mm Edwa-Manu [id number] - [id number] Implanted:Qt y: 1 on 04/25/2022 by Ollie Tang MD [place] [facility] N/A: Chest [employer] VIET 11/10/2025 [id number] / [id number] / Plate X Stry-Cran [id number] - [id number] Implanted:Qt y: 2 on 04/25/2022 by Ollie Tang MD [place] [facility] N/A: Chest CL[employer]IAL [id number] / / Plate Manubrium Stry-Cran [id number] 86 - [id number] Implanted:Qt y: 1 on 04/25/2022 by Ollie Tang MD [place] [facility] N/A: Chest [employer]ACIAL [id number] / / Screw Sd Locking 2.3x14mm Stry-Cran [id number] - [id number] Implanted:Qt y: 20 on 04/25/2022 by Ollie Tang MD [place] [facility] N/A: Chest [employer]ACIAL [id number] / / Screw St Locking 2.7x12mm Stry-Cran [id number] - [id number] Implanted:Qt y: 2 on 04/25/2022 by Ollie Tang MD [place] [facility] N/A: Chest [employer] CR[employer]ACIAL [id number] / / Advance Directives For more information, please contact: [phone] Latest Code Status on File Code Status Date Activated Date Inactivated Comments Full Code 04/25/2022 5:55 AM 04/30/2022 7:55 PM Thi s code status was ascertained in the following way: discussion with patient. Care Teams Plant Maintenance Worker Relationship Specialty Start Date End Date Da Campos [address] [facility] [place] [address] PCP - General Family Medicine 03/24/22
== END 2025-07-16 11:11 | disposition home or self-care (01) ==
LOC: HO.HSMC 10:18
PROVIDERS: PCP Nurse Practitioner Family; Visit Provider Physician Assistant Medical
DX: G47.33 Obstructive sleep apnea (adult) (pediatric) (principal); D64.9 Anemia, unspecified; R25.2 Cramp and spasm; G25.81 Restless legs syndrome; R20.2 Paresthesia of skin
CPT/HCPCS: 99214

== ENCOUNTER → 2025-07-16 10:17 | Outpatient (BNVA) | payer MEDICARE, OTHER, SELFPAY | PROVIDERS: PCP Nurse Practitioner Family; Visit Provider Physician Assistant Medical | DX: G47.33 Obstructive sleep apnea (adult) (pediatric) (principal); G25.81 Restless legs syndrome; R20.2 Paresthesia of skin; D64.9 Anemia, unspecified; Z99.89 Dependence on other enabling machines and devices; Z95.2 Presence of prosthetic heart valve | CPT/HCPCS: 99212 ==